=== PATIENT | male | born 1955 | race Caucasian/White ===

== ENCOUNTER 2017-04-13 23:34 | Inpatient (IN) | payer MEDICAID, MEDICARE ==
[2017-04-13 23:37] VITALS: BMI 20.9
--- NOTE | 2017-04-13 23:59 | CT ---
EXAM: CT Head Without Intravenous Contrast CLINICAL HISTORY: 61 years old, male; Signs and symptoms; Altered mental status/memory loss; Confusion or disorientation; Additional info: Code stroke TECHNIQUE: Axial computed tomography images of the head/brain without intravenous contrast. All CT scans at this facility use one or more dose reduction techniques, viz.: automated exposure control; ma/kV adjustment per patient size (including targeted exams where dose is matched to indication; i.e. head); or iterative reconstruction technique. COMPARISON: No relevant prior studies available. FINDINGS: Brain: Moderate atrophy. No intracranial hemorrhage. No mass. Moderate encephalomalacia within RIGHT frontal region. Few scattered foci of decreased attenuation within periventricular/subcortical white matter. No definite edema. Pleural thickening along RIGHT frontal convexity. Ventricles: No hydrocephalus. Bones/joints: No acute fracture. Postsurgical changes of RIGHT calvarium. Soft tissues: Unremarkable. Sinuses: Scattered minimal mucosal thickening. Mastoid air cells: No mastoid effusion. Orbits: RIGHT phthisis bulbi. IMPRESSION: 1. Nonspecific white matter changes. Acute infarction may be CT occult within first 24 hours. If a focal deficit persists, consider followup CT or MRI for further evaluation. 2. Incidental/non-acute findings are described above.
--- NOTE | 2017-04-14 00:03 | ED PDOC ---
Arrival/HPI - General Chief Complaint: Weakness/Neurological Deficit Time Seen by Provider: 04/13/17 23:34 Historian: Patient, Family - History of Present Illness Narrative History of Present Illness (Text): 04/14/17 23:40 A 61 year old male, whose past medical history includes chest pain, is brought in by EMS. Patient was complaining of left-sided weakness about 1 hour ago, now symptom has resolved. Patient wants to be transferred to [facility] Patient has no other complaints at this time. PMD: Dr. Crenshaw Past Medical History - Provider Review Nursing Documentation Reviewed: Yes - Infectious Disease Hx of Infectious Diseases: None - Tetanus Immunization Tetanus Immunization: Unknown - Cardiac Hx Cardiac Disorders: Yes Hx Hypertension: Yes - Pulmonary Hx Respiratory Disorders: No - Neurological Hx Neurological Disorder: Yes Hx Seizures: Yes Other/Comment: Meningioma - HEENT Hx HEENT Disorder: Yes Other/Comment: RIGHT EYE RETINA PROBLEM - Renal Hx Renal Disorder: No - Endocrine/Metabolic Hx Endocrine Disorders: Yes Hx Diabetes Mellitus Type 2: Yes - Hematological/Oncological Hx Blood Disorders: No - Integumentary Hx Dermatological Disorder: No - Musculoskeletal/Rheumatological Hx Musculoskeletal Disorders: No - Gastrointestinal Hx Gastrointestinal Disorders: No - Genitourinary/Gynecological Hx Genitourinary Disorders: No - Psychiatric Hx Psychophysiologic Disorder: No Hx Substance Use: No - Surgical History Hx Tonsillectomy: Yes Other/Comment: Rt. eye surgery, Meningioma Tumor Removal - Anesthesia Hx Anesthesia: Yes Hx Anesthesia Reactions: No Hx Malignant Hyperthermia: No - Suicidal Assessment Feels Threatened In Home Enviroment: No Family/Social History - Physician Review Nursing Documentation Reviewed: Yes Family/Social History: No Known Family HX Smoking Status: Never Smoked Hx Alcohol Use: No Hx Substance Use: No Hx Substance Use Treatment: No Allergies/Home Meds Allergies/Adverse Reactions: Allergies No Known Allergies Allergy (Verified 07/18/14 18:34) Home Medications: Home Meds Medication Instructions Recorded Confirmed Atorvastatin [Lipitor] 10 mg PO DIN 04/14/17 04/14/17 Brinzolamide [Azopt 15 ml] 5 ml OD BID 04/14/17 04/14/17 Brinzolamide/Brimonidine Tart 8 ml OD TID 04/14/17 04/14/17 [Simbrinza 0.2%-1% 8 ml] Carvedilol [Coreg] 6.25 mg PO BID 04/14/17 04/14/17 Divalproex [Depakote] 500 mg PO DAILY 04/14/17 04/14/17 Ibuprofen [Motrin] 400 mg PO TID PRN 04/14/17 04/14/17 Insulin Aspart, Recombinant 10 unit SC AC 04/14/17 04/14/17 [Novolog] Levemir Flexpen 30 units SQ HS 04/14/17 04/14/17 Losartan [Cozaar] 100 mg PO DAILY 04/14/17 04/14/17 MetFORMIN [glucOPHAGE] 1,000 mg PO BID 04/14/17 04/14/17 Moxifloxacin HCl [Vigamox 3 ml] 1 drop OD QID 04/14/17 04/14/17 Oxcarbazepine [Trileptal] 150 mg PO BID 04/14/17 04/14/17 PrednisoLONE 1% [Prednisolone 1 drop OD QID 04/14/17 04/14/17 Acetate 5 Ml] SITagliptin [Januvia] 100 mg PO DAILY 04/14/17 04/14/17 Sertraline [Zoloft] 50 mg PO DAILY 04/14/17 04/14/17 Travoprost [Travatan Z 2.5 ml] 2.5 ml OU HS 04/14/17 04/14/17 Review of Systems - Review of Systems Constitutional: absent: Fevers, Night Sweats Respiratory: absent: SOB, Cough Cardiovascular: absent: Chest Pain Gastrointestinal: absent: Abdominal Pain, Diarrhea, Nausea, Vomiting Neurological: Focal Weakness (left-sided weakness that occurred 1 hour ago, has now resolved upon arrival.) Physical Exam Vital Signs Temp Pulse Pulse Resp BP Pulse Ox 04/14/17 18:00 89 04/14/17 16:00 97.8 F 80 20 105/56 L 95 04/14/17 14:00 91 H 04/14/17 13:21 99 F 91 H 91 H 18 128/79 04/14/17 08:00 99 F 91 H 18 128/77 95 04/14/17 06:28 88 16 128/82 95 04/14/17 05:50 90 18 128/82 95 04/14/17 04:53 91 H 20 140/89 96 04/14/17 03:50 94 H 12 147/97 H 97 04/14/17 02:05 98.7 F 87 18 129/70 99 04/14/17 01:00 97 H 20 130/84 98 04/14/17 00:44 100 H 20 149/91 H 99 - Systems Exam Head: Present: Atraumatic, Normocephalic Pupils: Present: PERRL Extroacular Muscles: Present: EOMI Conjunctiva: Present: Normal Mouth: Present: Moist Mucous Membranes Neck: Present: Normal Range of Motion Respiratory/Chest: Present: Clear to Auscultation, Good Air Exchange. No: Respiratory Distress, Accessory Muscle Use Cardiovascular: Present: Regular Rate and Rhythm, Normal S1, S2. No: Murmurs Abdomen: Present: Normal Bowel Sounds. No: Tenderness, Distention, Peritoneal Signs Back: Present: Normal Inspection Upper Extremity: Present: Normal Inspection. No: Cyanosis, Edema Lower Extremity: Present: Normal Inspection. No: Edema Neurological: Present: GCS=15, CN II-XII Intact, Speech Normal Skin: Present: Warm, Dry, Normal Color. No: Rashes Psychiatric: Present: Alert, Oriented x 3, Normal Insight, Normal Concentration Medical Decision Making ED Course and Treatment: 04/14/17 23:45 Impression: 61 year old male with left-sided weakness now resolved. No acute findings in physical exam. Plan: -- EKG -- Head CT -- Chest X-ray -- Labs -- Reassess and disposition Prior Visits: Notes and results from previous visits were reviewed. Patient was last seen here in the emergency department on 07/19/2014 for chest pain. Progress Notes: 04/13/2017 23:33 Code stroke called. 04/14/2017 00:00 Patient and family want patient to be transferred over to [facility] 04/14/2017 00:[address] FINDINGS: Brain: Moderate atrophy. No intracranial hemorrhage. No mass. Moderate encephalomalacia within RIGHT frontal region. Few scattered foci of decreased attenuation within periventricular/subcortical white matter. No definite edema. Pleural thickening along RIGHT frontal convexity. Ventricles: No hydrocephalus. Bones/joints: No acute fracture. Postsurgical changes of RIGHT calvarium. Sinuses: Scattered minimal mucosal thickening. Mastoid air cells: No mastoid effusion. OrbitsL RIGHT phthisis bulbi. IMPRESSION: 1. Nonspecific white matter changes. Acute infarction may be CT occult within first 24 hours. If a focal deficit persists, consider followup CT or MRI for further evaluation. 2. Incidental/non-acute findings are described above. Dictator: Ronal Harley EKG: Ordered, reviewed, and independently interpreted the EKG. Rate : 99 BPM Rhythm : NSR Interpretation : No ST-segment elevations or depressions, no T-wave inversions, normal intervals. Comparison : No previous EKG for comparison. case d/w [facility] under hopsitalist pediatric medical assistant notified dr caryl bonilla, case d/w dr zuniga not candidate for tpa 04/14/17 19:20 - Lab Interpretations Lab Results: 04/14/17 00:10 04/14/17 00:10 Lab Results 04/14/17 00:10: Blood Type AB POSITIVE, Antibody Screen Negative, BBK History Checked No verified bt 04/14/17 00:10: Hemoglobin A1c 9.7 H 04/14/17 00:10: Sodium 136, Potassium 4.9, Chloride 98, Carbon Dioxide 28, Anion Gap 15, BUN 24 H, Creatinine 0.9, Est GFR ( Amer) > 60, Est GFR ( Non-Af Amer) > 60, Random Glucose 255 H, Calcium 9.5, Total Bilirubin 0.4, AST 42, ALT 61 H, Alkaline Phosphatase 114, Troponin I < 0.01, Total Protein 7.0, Albumin 4.0, Globulin 3.0, Albumin/Globulin Ratio 1.3, Triglycerides 98, Cholesterol 124 L, LDL Cholesterol Direct 51, HDL Cholesterol 55 04/14/17 00:10: PT 11.4, INR 1.06, APTT 24.2 04/14/17 00:10: WBC 5.9, RBC 4.30, Hgb 12.5 L, Hct 36.3 L, MCV 84.4, MCH 29.1, MCHC 34.4, RDW 13.8, Plt Count 206, MPV 9.3, Gran % 71.0 H, Lymph % (Auto) 20.8 L, [place] % (Auto) 6.6 H, Eos % (Auto) 1.4 L, Baso % (Auto) 0.2, Gran # 4.17, Lymph # 1.2, [place] # 0.4, Eos # 0.1, Baso # 0.01 - RAD Interpretation Radiology Orders: 04/13/17 23:38 HEAD W/O (CODE STROKE) [CT] Stat CHEST ONE VIEW [RAD] Stat - Medication Orders Current Medication Orders: Divalproex Sodium (Depakote Dr(*Bid*)) 500 mg PO BID [facility] Last Admin: 04/14/17 17:22 Dose: 500 mg Behavioural Document 04/14/17 17:22 SML (Rec: 04/14/17 17:22 [email or web address]) Maintenance Maintenance Dose Yes Insulin Detemir (Levemir) 30 unit SC HS [facility] Insulin Human Lispro (Humalog Med) 0 units SC [facility] PRN Reason: Protocol Last Admin: 04/14/17 17:20 Dose: 5 units MAR Blood Glucose Document 04/14/17 17:20 [facility] (Rec: 04/14/17 17:21 [email or web address]) Blood Glucose Finger Stick Blood Glucose (70-120) 250 Subcutaneous Administrations Document 04/14/17 17:20 [facility] (Rec: 04/14/17 17:21 [place] [id number]) Injection Site MAR Injection Site Right Arm Charges for Administration # of Subcutaneous Administrations 1 Latanoprost (Xalatan Opht) 0 ml OU HS [facility] Losartan Potassium (Cozaar) 100 mg PO DAILY [facility] Last Admin: 04/14/17 10:21 Dose: 100 mg Non-Formulary Medication (Brinzolamide/Brimonidine Tart [Simbrinza 1%-0.2% Eye Drops]) 8 ml OD TID [facility] Last Admin: 04/14/17 17:23 Dose: Oxcarbazepine (Trileptal) 150 mg PO DAILY [facility] Last Admin: 04/14/17 10:22 Dose: 150 mg Behavioural Document 04/14/17 10:22 TNR (Rec: 04/14/17 10:22 TNR [id number]) Maintenance Maintenance Dose Yes Pantoprazole Sodium (Protonix Inj) 40 mg IVP DAILY [facility] Last Admin: 04/14/17 10:22 Dose: 40 mg IVP Administration Document 04/14/17 10:22 TNR (Rec: 04/14/17 10:22 TNR [id number]) Charges for Administration # of IVP Administrations 1 Prednisolone Acetate (Pred Forte 1% Opht Susp) 0 ml OD QID [facility] Last Admin: 04/14/17 17:22 Dose: 1 drop Discontinued Medications Pneumococcal Polyvalent Vaccine (Pneumovax 23 Vaccine) 0.5 ml IM .ONCE ONE Stop: 04/14/17 13:41 NIHSS Scale (Innis) - How Severe is the Stoke Baseline Level of Consciousness: 0=Alert LOC to Questions: 0=Both comments correct LOC to commands: 0=Obeys both correctly Best Gaze: 0=Normal Visual: 0=No visual loss Facial: 0=Normal Motor Arm - Left: 0=No drift Motor Arm - Right: 0=No drift Motor Leg - Left: 0=No drift Motor Leg - Right: 0=No drift Limb Ataxia: 0=Absent Sensory: 0=Normal Best Language: 0=No aphasia Dysarthia: 0=Normal articulation Extinction & Inattention (Neglect): 0=Normal, no object Score: 0 Risk Level: No Stroke Risk rTPA Inclusion/Exclusion - Refusal of Treatment Patient Refused Treatment: No - Inclusion Criteria for Altepase Patient is 18 years or Older: Yes The Clinical Diagnosis of Ischemic Stroke That is Causing a Potentially Disabling Neurological Deficit: No Time of Onset is Well Established to be Less Than 270 Minute Before Treatment Would Begin: Yes Risk/Benefit Discussed With Patient/Family Member Present: Yes - Exclusion Criteria for Altepase Uncontrolled Hypertension at Time of Treatment (Systolic BP above 185 or Diastolic BP above 110 mmHg): No History of: Intracranial hemorrhage Active Internal Bleeding: No Known Bleeding Diathesis Including but Not Limited to: Platelets Below 100,000/ mm,PTT Above 40 sec After Heparin Use, Current Use of Oral Anitcoagulant With INR Greater Than 1.7 or PT Greater Than 15 secs: No Evidence of an Intracranial Hemorrhage: No Evidence of Major Acute Infarct With Signs Greater Than 1/3 MCA Territory: No Suspicion of Subarachnoid Hemorrhage on Pretreatment Evaluation Even if CT Head Negative For Hemorrhage: No - Warning to TPA With Conditions Following Conditions Weighed Against Anticipated Benefit: Yes Condition: Stroke Serevity Too Mild, Rapid Improvement - Scribe Statement The provider has reviewed the documentation as recorded by the Lukas Morse Provider Scribe Attestation: All medical record entries made by the Scribe were at my direction and personally dictated by me. I have reviewed the chart and agree that the record accurately reflects my personal performance of the history, physical exam, medical decision making, and the department course for this patient. I have also personally directed, reviewed, and agree with the discharge instructions and disposition. Disposition/Present on Arrival - Present on Arrival Any Indicators Present on Arrival: No History of DVT/PE: No History of Uncontrolled Diabetes: Yes Urinary Catheter: No History of Decub. Ulcer: No History Surgical Site Infection Following: None - Disposition Have Diagnosis and Disposition been Completed?: Yes Diagnosis: Transient ischemic attack (TIA) Disposition: HOSPITALIZED Disposition Time: 00:30 Patient Problems: Current Active Problems Problem Status Onset Transient ischemic attack (TIA) Acute Condition: FAIR
[2017-04-14 00:20] LABS: BASO # 0.01 K/mm3 (0.0-2.0); BASO % 0.2 % (0.0-3.0); EOS # 0.1 (0.0-0.7); EOS % 1.4 % (1.5-5.0); GRAN # 4.17 (1.4-6.5); HEMATOCRIT 36.3 % (42.0-52.0); LYMPH # 1.2 (1.2-3.4); LYMPH % 20.8 % (22.0-35.0); MEAN CELL VOLUME 84.4 fl (80.0-105.0); MEAN CORPUSCULAR HEMOGLOBIN 29.1 pg (25.0-35.0); MEAN CORPUSCULAR HGB CONC 34.4 g/dl (31.0-37.0); MEAN PLATELET VOLUME 9.3 fl (7.0-11.0); MONO # 0.4 (0.1-0.6); MONO % 6.6 % (1.0-6.0); RED CELL DISTRIBUTION WIDTH 13.8 % (11.5-14.5); WHITE BLOOD COUNT 5.9 10^3/ul (4.5-11.0)
[2017-04-14 00:35] LABS: INR 1.06 (0.93-1.08); PARTIAL THROMBOPLASTIN TIME 24.2 Seconds (23.7-30.8)
[2017-04-14 00:36] LABS: ALB/GLOB RATIO 1.3 (1.1-1.8); ALKALINE PHOSPHATASE 114 U/L (38-126); ALT/SGPT 61 U/L (7-56); AST/SGOT 42 U/L (17-59); BILIRUBIN,TOTAL 0.4 mg/dL (0.2-1.3); BLOOD UREA NITROGEN 24 mg/dL (7-21); CALCIUM 9.5 mg/dL (8.4-10.5); CARBON DIOXIDE 28 mmol/L (21-33); CHLORIDE 98 mmol/L (98-107); CHOLESTEROL 124 mg/dL (130-200); GFR AFRICAN-AMERICAN > 60; GLUCOSE,RANDOM 255 mg/dL (70-110); POTASSIUM 4.9 mmol/L (3.6-5.0); SODIUM 136 mmol/L (132-148)
[2017-04-14 00:48] LABS: TROPONIN I < 0.01 ng/mL
--- NOTE | 2017-04-14 02:24 | CP.PCM.HP ---
<CLAUDETTE BUCK - Last Filed: 04/14/17 02:16> History of Present Illness - History of Present Illness History of Present Illness: CC: Stroke Pt is a 61 yo male with PMH HTN, HLD, DM2, and meningioma presents with c/o possible stroke. Pt states that around 7:30 pm this evening patient was at home when he began to feel weak and numb in his left arm. Pt denies any prior history of focal weaknesses or any stroke like symptoms. At the time of the event, pt denied LOC, dizziness, fatigue, HEARD, leg weakness/numbness, or facial droop. Pt was initially take to [facility] by his to be evaluated. After workup, pt was discharged home. However, the patient's subsequently brought him to [facility] after discharge from [facility]. At the time of examination, pt states that he still had left arm weakness and some numbness on the back of his hand. Pt states that his vision is poor overall. Pt denied CP, SOB, n/v/d, chills, fever , abdominal pain, HEARD, dizziness, fatigue, constipation, or dysuria. PMD: [place] PMH: HTN, HLD, DM2, meningioma Surg: Craniotomy (2009) FHx: COPD All: NKDA SH: Denied EtOH, tobacco, or illicit drug use; lives at home with Medications: reviewed as per MAR Present on Admission - Present on Admission Any Indicators Present on Admission: No Review of Systems - Review of Systems Review of Systems: 12 point ROS negative other than what is stated in HPI Past Patient History - Infectious Disease Hx of Infectious Diseases: None - Tetanus Immunizations Tetanus Immunization: Unknown - Past Medical History & Family History Past Medical History?: Yes - Past Social History Smoking Status: Never Smoked - CARDIAC Hx Cardiac Disorders: Yes Hx Hypertension: Yes - PULMONARY Hx Respiratory Disorders: No - NEUROLOGICAL Hx Neurological Disorder: Yes Hx Seizures: Yes Other/Comment: Meningioma - HEENT Hx HEENT Problems: Yes Other/Comment: RIGHT EYE RETINA PROBLEM - RENAL Hx Chronic Kidney Disease: No - ENDOCRINE/METABOLIC Hx Endocrine Disorders: Yes Hx Diabetes Mellitus Type 2: Yes - HEMATOLOGICAL/ONCOLOGICAL Hx Blood Disorders: No - INTEGUMENTARY Hx Dermatological Problems: No - MUSCULOSKELETAL/RHEUMATOLOGICAL Hx Musculoskeletal Disorders: No - GASTROINTESTINAL Hx Gastrointestinal Disorders: No - GENITOURINARY/GYNECOLOGICAL Hx Genitourinary Disorders: No - PSYCHIATRIC Hx Psychophysiologic Disorder: No Hx Substance Use: No - SURGICAL HISTORY Hx Tonsillectomy: Yes Other/Comment: Rt. eye surgery, Meningioma Tumor Removal - ANESTHESIA Hx Anesthesia: Yes Hx Anesthesia Reactions: No Hx Malignant Hyperthermia: No Meds Allergies/Adverse Reactions: Allergies Allergy/AdvReac Type Severity Reaction Status Date / Time No Known Allergies Allergy Verified 07/18/14 18:34 Physical Exam - Constitutional Appears: No Acute Distress - Head Exam Head Exam: ATRAUMATIC, NORMOCEPHALIC Additional comments: scar on right frontal region consistent with craniotomy - Eye Exam Eye Exam: absent: EOMI, PERRL Additional comments: No vision from right eye. Poor visual field testing with left eye. - ENT Exam ENT Exam: Mucous Membranes Moist - Neck Exam Neck exam: Positive for: Full Rom. Negative for: Lymphadenopathy, Tenderness, Thyromegaly - Respiratory Exam Respiratory Exam: Clear to Auscultation Bilateral. absent: Accessory Muscle Use , Rales, Rhonchi, Wheezes, Respiratory Distress - Cardiovascular Exam Cardiovascular Exam: RRR, +S1, +S2. absent: Gallop, Rubs, Systolic Murmur - GI/Abdominal Exam GI & Abdominal Exam: Soft. absent: Distended, Firm, Guarding, Organomegaly, Rebound, Tenderness - Extremities Exam Extremities exam: Positive for: normal inspection - Neurological Exam Neurological exam: Alert, Oriented x3 Additional comments: Poor proprioception per [id number] test, positive dysdiadochokinesia, decreased sensation to dorsal region of left hand, trouble tracer strength 4/5 on R, 2/5 on L - Psychiatric Exam Psychiatric exam: Normal Affect, Normal Mood - Skin Skin Exam: Dry, Intact, Normal Color, Warm Results - Vital Signs Recent Vital Signs: Last Vital Signs Temp 98.7 F 04/14/17 02:05 Pulse 100 H 04/14/17 00:44 Resp 20 04/14/17 00:44 BP 149/91 H 04/14/17 00:44 Pulse Ox 99 04/14/17 00:44 - Labs Result Diagrams: 04/14/17 00:10 04/14/17 00:10 Labs: Laboratory Results - last 24 hr 04/14/17 01:30 Blood Type Confirm AB POSITIVE Assessment & Plan - Assessment and Plan (Free Text) Assessment: 61 yo male with PMHx of HTN, HLD, DM, and meningioma will be admitted for evaluation and treatment for possible stroke. Plan: 1. Possible Stroke - As pt was d/c from [facility] prior to arrival at [facility], difficult to determine if focal deficits are an acute event or baseline for pt - CT showed nonspecific white matter changes. Acute infarction may be CT occult within first 24 hours. If a focal deficit persists, consider followup CT or MRI for further evaluation - EKG NSR - Neuro Consulted - Lipid panel WNL - F/u Brain MRI, AM Labs, A1C - Seizure precautions - Neurochecks - Swallow eval/treat 2. Hypertension - Cont home med: Losartan 3. Diabetes Mellitus Type 2 - Blood glucose 255 - Levemir 30 units SC HS - ISS - Accuchecks - Carb consistent diet 4. Hyperlipidemia - Lipid panel WNL 5. H/O Meningioma - Cont home meds: Depakote and Oxcarbazepine - Seizure precautions 6. H/O Glaucoma - Cont home meds: Simbrinza, Latanoprost, prednisolone OD GI/DVT PPx - Protonix - SCDs Pt discussed in detail with Dr. Urbina. Loco Buck, PGY1 <Alice Urbina - Last Filed: 04/16/17 01:05> Results - Vital Signs Recent Vital Signs: Last Vital Signs Temp 98.7 F 04/14/17 02:05 Pulse 88 04/14/17 06:28 Resp 16 04/14/17 06:28 BP 128/82 04/14/17 06:28 Pulse Ox 95 04/14/17 06:28 - Labs Result Diagrams: 04/15/17 08:10 04/15/17 08:10 Labs: Laboratory Results - last 24 hr 04/14/17 04/14/17 01:30 06:58 WBC 5.2 RBC 4.05 Hgb 11.6 L Hct 34.0 L MCV 84.0 MCH 28.6 MCHC 34.1 RDW 13.8 Plt Count 204 MPV 9.6 Blood Type Confirm AB POSITIVE
[2017-04-14 07:09] LABS: MEAN CORPUSCULAR HEMOGLOBIN 28.6 pg (25.0-35.0); MEAN CORPUSCULAR HGB CONC 34.1 g/dl (31.0-37.0); MEAN PLATELET VOLUME 9.6 fl (7.0-11.0); RED CELL DISTRIBUTION WIDTH 13.8 % (11.5-14.5); WHITE BLOOD COUNT 5.2 10^3/ul (4.5-11.0)
[2017-04-14] MEDS: Insulin Lispro (humaLOG) MEDIUM Coverage SC SCH ×4 (09:06→21:46)
--- NOTE | 2017-04-14 10:13 | CARD ---
APPROVED REPORT EKG Measurement Heart [id number] <Conclusion> Normal sinus rhythm Normal ECG
--- NOTE | 2017-04-14 10:15 | RAD ---
PROCEDURE: CHEST RADIOGRAPH, 1 VIEW HISTORY: cva COMPARISON: 02/08/2014 FINDINGS: LUNGS: Clear. PLEURA: No pneumothorax or pleural fluid seen. CARDIOVASCULAR: Normal. OSSEOUS STRUCTURES: Thoracic spondylosis. Bilateral shoulder arthrosis VISUALIZED UPPER ABDOMEN: Normal. OTHER FINDINGS: None. IMPRESSION: No active cardiopulmonary pathology appreciated. Arthrosis
[2017-04-14] MEDS: PrednisoLONE 1% Opht Susp(5 ml) OD SCH ×4 (10:22→21:48)
[2017-04-14] MEDS: Divalproex 500 mg DR(BID formulation) PO SCH ×2 (10:22→17:22)
[2017-04-14] MEDS: BRIMONIDINE TART OD SCH ×3 (10:24→17:23)
[2017-04-14] MEDS: BRINZOLAMIDE OD SCH ×3 (10:24→17:23)
[2017-04-14] MEDS: [UNRECOGNIZED DRUG - OTHER] OD SCH ×3 (10:24→17:23)
[2017-04-14] MEDS ORDERED: Pneumococcal 23-Valent Vaccine IM ONE (13:40)
--- NOTE | 2017-04-14 13:47 | MRI ---
PROCEDURE: MRI BRAIN WITHOUT CONTRAST HISTORY: stroke COMPARISON: None. TECHNIQUE: Multiplanar, multisequence MR images of the brain were obtained without intravenous contrast enhancement. FINDINGS: HEMORRHAGE: None DWI: No evidence of an acute or early subacute infarction. BRAIN PARENCHYMA: No mass effect or edema. There is cystic and non cystic encephalomalacia in the right frontal lobe. There is some atrophy with dilatation of the right frontal horn VENTRICLES: Unremarkable. No hydrocephalus. CRANIUM: Unremarkable. ORBITS: Collapsed and atrophic right globe PARANASAL SINUSES/MASTOIDS: Clear VASCULAR SYSTEM: Skull base flow voids intact. OTHER FINDINGS: None. IMPRESSION: Right frontal encephalomalacia and atrophy. No acute intracranial findings
--- NOTE | 2017-04-14 14:06 | CP.PCM.CON ---
<Sravanthi Esquivel - Last Filed: 04/14/17 13:59> History of Present Illness - History of Present Illness History of Present Illness: Neurology Consult Note for Lillian Herring PGY2 Reason for consult: L arm numbness This is a 61Y M with PMH HTN, HLD, DM, seizures and meningioma s/p crainiotomy who complained of L arm numbness/tingling. Patient was recently seen at [facility] last weekend for similar symptoms and was d/c home without any changes in medications. Patient reports that he has numbness/tingling on his L forearm only. He denies neck pain, trauma, loss of consciousness, slurred speech, facial droop, dizziness, vision changes, CP, SOB, fever or chills. Patient reports he is on seizure medication, but has not had a seizure for several years. Patient also states he does lean on his L arm a lot when he is resting. PMH: HTN, DM, HLD, meningioma, R eye blindness, seizures PSH: Crainiotomy Home meds: As per MAR All: NKDA SH: Denies EtOH, drug or tobacco use. Lives with daughter/family Review of Systems - Review of Systems All systems: reviewed and no additional remarkable complaints except Review of Systems: + L arm numbness Past Patient History - Infectious Disease Hx of Infectious Diseases: None - Tetanus Immunizations Tetanus Immunization: Unknown - Past Medical History & Family History Past Medical History?: Yes - Past Social History Smoking Status: Never Smoked Alcohol: None Drugs: Denies Home Situation {Lives}: With Family - CARDIAC Hx Cardiac Disorders: Yes Hx Hypercholesterolemia: Yes Hx Hypertension: Yes - PULMONARY Hx Respiratory Disorders: No - NEUROLOGICAL Hx Neurological Disorder: Yes HX Cerebrovascular Accident: Yes (2010, slurrred speech/extremity weakness) Hx Seizures: Yes (related to meningioma) Other/Comment: r eye sx meningioma tumor removed - HEENT Hx HEENT Problems: Yes Hx Blind: Yes (r eye as per pt) Other/Comment: RIGHT EYE RETINA PROBLEM - RENAL Hx Chronic Kidney Disease: No - ENDOCRINE/METABOLIC Hx Diabetes Mellitus Type 2: Yes - HEMATOLOGICAL/ONCOLOGICAL Hx Blood Disorders: No - INTEGUMENTARY Other/Comment: ble dry skin - MUSCULOSKELETAL/RHEUMATOLOGICAL Hx Falls: Yes (past) - GASTROINTESTINAL Hx Gastrointestinal Disorders: No - GENITOURINARY/GYNECOLOGICAL Hx Genitourinary Disorders: No - PSYCHIATRIC Hx Substance Use: No - SURGICAL HISTORY Other/Comment: Rt. eye surgery, Meningioma Tumor Removal - ANESTHESIA Hx Anesthesia: Yes Hx Anesthesia Reactions: No Hx Malignant Hyperthermia: No Meds Allergies/Adverse Reactions: Allergies Allergy/AdvReac Type Severity Reaction Status Date / Time No Known Allergies Allergy Verified 07/18/14 18:34 - Medications Medications: Current Medications Divalproex Sodium (Depakote Dr(*Bid*)) 500 mg PO BID [facility] Last Admin: 04/14/17 10:22 Dose: 500 mg Insulin Detemir (Levemir) 30 unit SC HS [facility] Insulin Human Lispro (Humalog Med) 0 units SC ACHS [facility] PRN Reason: Protocol Last Admin: 04/14/17 12:38 Dose: 1 units Latanoprost (Xalatan Opht) 0 ml OU HS [facility] Losartan Potassium (Cozaar) 100 mg PO DAILY [facility] Last Admin: 04/14/17 10:21 Dose: 100 mg Non-Formulary Medication (Brinzolamide/Brimonidine Tart [Simbrinza 1%-0.2% Eye Drops]) 8 ml OD TID [facility] Last Admin: 04/14/17 10:24 Dose: Not Given Oxcarbazepine (Trileptal) 150 mg PO DAILY [facility] Last Admin: 04/14/17 10:22 Dose: 150 mg Pantoprazole Sodium (Protonix Inj) 40 mg IVP DAILY [facility] Last Admin: 04/14/17 10:22 Dose: 40 mg Prednisolone Acetate (Pred Forte 1% Opht Susp) 0 ml OD QID [facility] Last Admin: 04/14/17 10:22 Dose: 1 drop Physical Exam - Constitutional Appears: No Acute Distress - Head Exam Head Exam: ATRAUMATIC, NORMAL INSPECTION, NORMOCEPHALIC - Eye Exam Eye Exam: PERRL (on L ) Pupil Exam: PERRL (on L ) Additional comments: R eye blindness - ENT Exam ENT Exam: Mucous Membranes Moist - Respiratory Exam Respiratory Exam: Clear to Auscultation Bilateral, NORMAL BREATHING PATTERN. absent: Rales, Rhonchi, Wheezes - Cardiovascular Exam Cardiovascular Exam: REGULAR RHYTHM, +S1, +S2. absent: Gallop, Rubs, Systolic Murmur - Extremities Exam Extremities exam: Positive for: normal inspection. Negative for: calf tenderness, pedal edema - Neurological Exam Neurological exam: Alert, CN II-XII Intact, Oriented x3 - Expanded Neurological Exam Expanded Patient oriented to: person, place, time Cranial nerves: EOM's Intact: Normal, Facial Palsey w/Forehead Movement: Normal , Facial Palsey w/o Forehead Movement: Normal, Facial Sensation: Normal, Tongue Deviation: Normal Upper motor neuron: Pronator Drift: Abnormal Left (mild on L ) Sensory exam: Lower Extremity 2 Point Discrimination: Normal, Lower Extremity Light Touch: Normal, Upper Extremity 2 Point Discrimination: Normal, Upper Extremity Light Touch: Normal Neuro motor strength exam: Left Upper Extremity: 5, Right Upper Extremity: 5, Left Lower Extremity: 5, Right Lower Extremity: 5 Coma Scale Eye Opening: SPONTANEOUS Coma Scale Motor Response: OBEYS COMMANDS Coma Scale Verbal: Oriented Coma Scale Total: 15 Results - Vital Signs Recent Vital Signs: Last Vital Signs Temp 99 F 04/14/17 13:21 Pulse 91 H 04/14/17 13:21 Resp 18 04/14/17 13:21 BP 128/79 04/14/17 13:21 Pulse Ox 95 04/14/17 08:00 - Labs Result Diagrams: 04/14/17 06:58 04/14/17 00:10 Labs: Laboratory Results - last 24 hr 04/14/17 04/14/17 04/14/17 01:30 06:58 08:16 WBC 5.2 RBC 4.05 Hgb 11.6 L Hct 34.0 L MCV 84.0 MCH 28.6 MCHC 34.1 RDW 13.8 Plt Count 204 MPV 9.6 POC Glucose (mg/dL) 147 H Blood Type Confirm AB POSITIVE 04/14/17 11:58 WBC RBC Hgb Hct MCV MCH MCHC RDW Plt Count MPV POC Glucose (mg/dL) 198 H Blood Type Confirm Assessment & Plan - Assessment and Plan (Free Text) Assessment: This is a 61Y M with PMH HTN, HLD, DM, seizures and meningioma s/p crainiotomy who complained of L arm numbness/tingling. MRI brain showed R chronic encephalomalacia without any acute abnormalities. L arm numbness can be secondary to pinched nerve from leaning on arm as well as diabetic neuropathy from uncontrolled DM. Plan: - HgbA1c: 9.7 - Recommend better glucose control and diabetic education - Physical therapy - Patient can follow up with Dr. Anguiano as outpatient for EMG study - Continue Depakote and Trileptal No further neurological work up needed at this time. Thank you for this consultation. Will sign off. Please re-consult if needed. Case seen, discussed and reviewed with Dr. Silvio Esquivel PGY2 - Date & Time Date: 04/14/17 Time: 14:11 <Triston Anguiano - Last Filed: 04/14/17 16:20> Results - Vital Signs Recent Vital Signs: Last Vital Signs Temp 99 F 04/14/17 13:21 Pulse 91 H 04/14/17 13:21 Resp 18 04/14/17 13:21 BP 128/79 04/14/17 13:21 Pulse Ox 95 04/14/17 08:00 - Labs Result Diagrams: 04/14/17 06:58 04/14/17 00:10 Labs: Laboratory Results - last 24 hr 04/14/17 04/14/17 04/14/17 01:30 06:58 08:16 WBC 5.2 RBC 4.05 Hgb 11.6 L Hct 34.0 L MCV 84.0 MCH 28.6 MCHC 34.1 RDW 13.8 Plt Count 204 MPV 9.6 POC Glucose (mg/dL) 147 H Blood Type Confirm AB POSITIVE 04/14/17 11:58 WBC RBC Hgb Hct MCV MCH MCHC RDW Plt Count MPV POC Glucose (mg/dL) 198 H Blood Type Confirm Attending/Attestation - Attestation I have personally seen and examined this patient.: Yes I have fully participated in the care of the patient.: Yes I have reviewed all pertinent clinical information: Yes
[2017-04-14 16:30] LABS: ALB/GLOB RATIO 1.4 (1.1-1.8); ALKALINE PHOSPHATASE 104 U/L (38-126); ALT/SGPT 47 U/L (7-56); AST/SGOT 33 U/L (17-59); BILIRUBIN,TOTAL 0.4 mg/dL (0.2-1.3); BLOOD UREA NITROGEN 20 mg/dL (7-21); CALCIUM 9.1 mg/dL (8.4-10.5); CARBON DIOXIDE 27 mmol/L (21-33); CHLORIDE 98 mmol/L (98-107); GFR AFRICAN-AMERICAN > 60; GLUCOSE,RANDOM 250 mg/dL (70-110); PHOSPHOROUS 4.3 mg/dL (2.5-4.5); POTASSIUM 4.7 mmol/L (3.6-5.0); SODIUM 136 mmol/L (132-148); TOTAL PROTEIN 6.4 g/dL (5.8-8.3)
--- NOTE | 2017-04-14 16:34 | US ---
PROCEDURE: Bilateral carotid artery duplex ultrasound HISTORY: Carotid stenosis TIA PHYSICIAN(S): Benjamín Sharma MD. TECHNIQUE: Duplex sonography and color-flow Doppler were used to evaluate the carotid bifurcations and limited segments of the vertebral arteries bilaterally. FINDINGS: There is mild smooth hypoechoic plaque noted at the carotid bifurcations bilaterally. The peak systolic velocity in the proximal right internal carotid artery is 84 cm/sec. This corresponds to a 20 to 39% proximal right ICA stenosis. Normal systolic velocities are noted in the proximal right external carotid artery. There is antegrade flow in the right vertebral artery. The peak systolic velocity in the proximal left internal carotid artery is 92 cm/sec. This corresponds to a 20 to 39% proximal left ICA stenosis. Normal systolic velocities are noted in the proximal left external carotid artery. There is antegrade flow in the left vertebral artery. IMPRESSION: 1. Bilateral 20-39% proximal ICA stenoses. 2. Antegrade flow in both vertebral arteries.
[2017-04-14] MEDS: Insulin Detemir 100 units/ml Vial (Levemir) SC SCH (21:46)
[2017-04-14] MEDS: Latanoprost 2.5 ml Opht Soln OU SCH (21:50)
[2017-04-15] MEDS: Insulin Lispro (humaLOG) MEDIUM Coverage SC SCH ×4 (08:13→22:46)
[2017-04-15 08:25] LABS: BLOOD UREA NITROGEN 26 mg/dL (7-21); CALCIUM 9.4 mg/dL (8.4-10.5); CARBON DIOXIDE 28 mmol/L (21-33); CHLORIDE 102 mmol/L (95-110); GFR AFRICAN-AMERICAN > 60; GLUCOSE,RANDOM 164 mg/dL (70-110); POTASSIUM 4.6 mmol/L (3.6-5.0); SODIUM 139 mmol/L (132-148)
[2017-04-15 08:26] LABS: HEMATOCRIT 35.3 % (42.0-52.0); MEAN CELL VOLUME 84.9 fl (80.0-105.0); MEAN CORPUSCULAR HEMOGLOBIN 28.4 pg (25.0-35.0); MEAN CORPUSCULAR HGB CONC 33.4 g/dl (31.0-37.0); MEAN PLATELET VOLUME 9.9 fl (7.0-11.0); RED CELL DISTRIBUTION WIDTH 13.7 % (11.5-14.5); WHITE BLOOD COUNT 4.8 10^3/ul (4.5-11.0)
[2017-04-15] MEDS: Divalproex 500 mg DR(BID formulation) PO SCH ×2 (09:54→17:54)
[2017-04-15] MEDS: PrednisoLONE 1% Opht Susp(5 ml) OD SCH ×4 (09:54→22:25)
[2017-04-15] MEDS: BRINZOLAMIDE OD SCH ×3 (10:01→17:54)
[2017-04-15] MEDS: BRIMONIDINE TART OD SCH ×3 (10:01→17:54)
[2017-04-15] MEDS: [UNRECOGNIZED DRUG - OTHER] OD SCH ×3 (10:01→17:54)
--- NOTE | 2017-04-15 13:38 | CP.PCM.PN ---
<Vince Michaud - Last Filed: 04/15/17 13:34> Subjective - Date & Time of Evaluation Date of Evaluation: 04/15/17 Time of Evaluation: 13:34 - Subjective Subjective: Pt seen and examined at bedside. No acute overnight events. Pt reports no symptoms today or complaints. Denies CP, SOB, N/V/D, fever, chills. Objective - Vital Signs/Intake and Output Vital Signs (last 24 hours): Temp Pulse Resp BP Pulse Ox 98.3 F 79 20 117/76 98 04/15/17 08:00 04/15/17 08:00 04/15/17 08:00 04/15/17 08:00 04/15/17 08:00 Intake and Output: 04/15/17 04/15/17 06:59 18:59 Intake Total 540 100 Balance 540 100 - Medications Medications: Current Medications Divalproex Sodium (Depakote Dr(*Bid*)) 500 mg PO BID [facility] Last Admin: 04/15/17 09:54 Dose: 500 mg Insulin Detemir (Levemir) 30 unit SC HS [facility] Last Admin: 04/14/17 21:46 Dose: 30 unit Insulin Human Lispro (Humalog Med) 0 units SC [facility] PRN Reason: Protocol Last Admin: 04/15/17 11:28 Dose: 1 units Latanoprost (Xalatan Opht) 0 ml OU HS [facility] Last Admin: 04/14/17 21:50 Dose: 1 ml Losartan Potassium (Cozaar) 100 mg PO DAILY [facility] Last Admin: 04/15/17 09:54 Dose: 100 mg Non-Formulary Medication (Brinzolamide/Brimonidine Tart [Simbrinza 1%-0.2% Eye Drops]) 8 ml OD TID [facility] Last Admin: 04/15/17 10:01 Dose: Not Given Oxcarbazepine (Trileptal) 150 mg PO DAILY [facility] Last Admin: 04/15/17 10:03 Dose: 150 mg Pantoprazole Sodium (Protonix Inj) 40 mg IVP DAILY [facility] Last Admin: 04/15/17 09:53 Dose: 40 mg Prednisolone Acetate (Pred Forte 1% Opht Susp) 0 ml OD QID [facility] Last Admin: 04/15/17 09:54 Dose: 1 drop - Labs Labs: 04/15/17 08:10 04/15/17 08:10 PT 11.4 Seconds (9.9-11.8) 04/14/17 00:10 INR 1.06 (0.93-1.08) 04/14/17 00:10 APTT 24.2 Seconds (23.7-30.8) 04/14/17 00:10 - Constitutional Appears: Non-toxic, No Acute Distress - Head Exam Head Exam: ATRAUMATIC, NORMAL INSPECTION, NORMOCEPHALIC - ENT Exam ENT Exam: Mucous Membranes Moist - Respiratory Exam Respiratory Exam: Clear to Ausculation Bilateral, NORMAL BREATHING PATTERN. absent: Rales, Rhonchi, Wheezes - Cardiovascular Exam Cardiovascular Exam: RRR, +S1, +S2 - GI/Abdominal Exam GI & Abdominal Exam: Soft, Normal Bowel Sounds. absent: Tenderness - Extremities Exam Extremities Exam: Normal Inspection. absent: Calf Tenderness, Pedal Edema - Neurological Exam Neurological Exam: Alert, Awake, Oriented x3 - Psychiatric Exam Psychiatric exam: Normal Affect, Normal Mood - Skin Skin Exam: Intact, Normal Color, Warm Assessment and Plan - Assessment and Plan (Free Text) Plan: 61 yo male with PMHx of HTN, HLD, DM, and meningioma presents with TIA. Head CT and Brain MRI negative for any acute findings. Pt will require subacute rehab placement. Will await placement at this time. 1. TIA - Head CT and Brain MRI negative - Continue ASA - Neurology recommends strict DM and HTN control - Lipid panel within normal limits 2. Hypertension - Cont home med: Losartan 3. Diabetes Mellitus Type 2 - Levemir 30 units SC HS - ISS - Accuchecks - Carb consistent diet 4. Hyperlipidemia - Lipid panel WNL 5. H/O Meningioma - Cont home meds: Depakote and Oxcarbazepine - Seizure precautions 6. H/O Glaucoma - Cont home meds: Simbrinza, Latanoprost, prednisolone OD 7. GI/DVT PPx - Protonix - SCDs Jaswant, PGY-2 <Dee Rai - Last Filed: 04/15/17 14:50> Objective - Vital Signs/Intake and Output Vital Signs (last 24 hours): Temp Pulse Resp BP Pulse Ox 98.3 F 87 20 117/76 98 04/15/17 08:00 04/15/17 10:00 04/15/17 08:00 04/15/17 08:00 04/15/17 08:00 Intake and Output: 04/15/17 04/15/17 06:59 18:59 Intake Total 540 580 Balance 540 580 - Medications Medications: Current Medications Aspirin (Aspirin Chewable) 81 mg PO DAILY [facility] Last Admin: 04/15/17 14:30 Dose: 81 mg Divalproex Sodium (Depakote Dr(*Bid*)) 500 mg PO BID [facility] Last Admin: 04/15/17 09:54 Dose: 500 mg Insulin Detemir (Levemir) 30 unit SC HS [facility] Last Admin: 04/14/17 21:46 Dose: 30 unit Insulin Human Lispro (Humalog Med) 0 units SC [facility] PRN Reason: Protocol Last Admin: 04/15/17 11:28 Dose: 1 units Latanoprost (Xalatan Opht) 0 ml OU HS [facility] Last Admin: 04/14/17 21:50 Dose: 1 ml Losartan Potassium (Cozaar) 100 mg PO DAILY [facility] Last Admin: 04/15/17 09:54 Dose: 100 mg Non-Formulary Medication (Brinzolamide/Brimonidine Tart [Simbrinza 1%-0.2% Eye Drops]) 8 ml OD TID [facility] Last Admin: 04/15/17 10:01 Dose: Not Given Oxcarbazepine (Trileptal) 150 mg PO DAILY [facility] Last Admin: 04/15/17 10:03 Dose: 150 mg Pantoprazole Sodium (Protonix Inj) 40 mg IVP DAILY [facility] Last Admin: 04/15/17 09:53 Dose: 40 mg Prednisolone Acetate (Pred Forte 1% Opht Susp) 0 ml OD QID [facility] Last Admin: 04/15/17 14:23 Dose: 1 drop - Labs Labs: 04/15/17 08:10 04/15/17 08:10 PT 11.4 Seconds (9.9-11.8) 04/14/17 00:10 INR 1.06 (0.93-1.08) 04/14/17 00:10 APTT 24.2 Seconds (23.7-30.8) 04/14/17 00:10 Attending/Attestation - Attestation I have personally seen and examined this patient.: Yes I have fully participated in the care of the patient.: Yes I have reviewed all pertinent clinical information, including history, physical exam and plan: Yes Notes (Text): 04/15/17 14:47 61 year old male with past medical history of hypertension, dyslipidemia, diabetes and meningioma s/p resection who presented with left sided weakness. CT head and MRI brain were negative for acute findings. Neurology evaluation was appreciated. Continue with aspirin. LDL was 51. PT evaluation was appreciated as well who is recommending subacute rehab. Continue with home medications for hypertension and diabetes. Dee Rai MD Hospitalist.
[2017-04-15] MEDS: Latanoprost 2.5 ml Opht Soln OU SCH (22:24)
[2017-04-15] MEDS: Insulin Detemir 100 units/ml Vial (Levemir) SC SCH (23:00)
[2017-04-16 07:59] VITALS: RESP 20
[2017-04-16] MEDS: Insulin Lispro (humaLOG) MEDIUM Coverage SC SCH ×4 (08:47→22:00)
[2017-04-16] MEDS: Divalproex 500 mg DR(BID formulation) PO SCH ×2 (10:18→17:11)
[2017-04-16] MEDS: BRIMONIDINE TART OD SCH ×3 (10:19→19:02)
[2017-04-16] MEDS: [UNRECOGNIZED DRUG - OTHER] OD SCH ×3 (10:19→19:02)
[2017-04-16] MEDS: BRINZOLAMIDE OD SCH ×3 (10:19→19:02)
[2017-04-16] MEDS: PrednisoLONE 1% Opht Susp(5 ml) OD SCH ×4 (10:19→21:58)
--- NOTE | 2017-04-16 12:30 | CP.PCM.PN ---
<Vince Michaud - Last Filed: 04/16/17 12:27> Subjective - Date & Time of Evaluation Date of Evaluation: 04/16/17 Time of Evaluation: 12:27 - Subjective Subjective: Pt seen and examined at bedside. Pt with no acute events overnight. Denies any complaints at this time. Denies CP, SOB, N/V/D, fever, chills. Objective - Vital Signs/Intake and Output Vital Signs (last 24 hours): Temp Pulse Resp BP Pulse Ox 98.4 F 80 20 117/68 96 04/16/17 08:04 04/16/17 08:04 04/16/17 08:04 04/16/17 08:04 04/16/17 08:04 Intake and Output: 04/16/17 04/16/17 06:59 18:59 Intake Total 780 Balance 780 - Medications Medications: Current Medications Aspirin (Aspirin Chewable) 81 mg PO DAILY [facility] Last Admin: 04/16/17 10:18 Dose: 81 mg Divalproex Sodium (Depakote Dr(*Bid*)) 500 mg PO BID [facility] Last Admin: 04/16/17 10:18 Dose: 500 mg Insulin Detemir (Levemir) 30 unit SC HS [facility] Last Admin: 04/15/17 23:00 Dose: Not Given Insulin Human Lispro (Humalog Med) 0 units SC [facility] PRN Reason: Protocol Last Admin: 04/16/17 08:47 Dose: 3 units Latanoprost (Xalatan Opht) 0 ml OU HS [facility] Last Admin: 04/15/17 22:24 Dose: 2.5 ml Losartan Potassium (Cozaar) 100 mg PO DAILY [facility] Last Admin: 04/16/17 10:18 Dose: 100 mg Non-Formulary Medication (Brinzolamide/Brimonidine Tart [Simbrinza 1%-0.2% Eye Drops]) 8 ml OD TID [facility] Last Admin: 04/16/17 10:19 Dose: Not Given Oxcarbazepine (Trileptal) 150 mg PO DAILY [facility] Last Admin: 04/16/17 10:17 Dose: 150 mg Pantoprazole Sodium (Protonix Inj) 40 mg IVP DAILY [facility] Last Admin: 04/16/17 10:18 Dose: 40 mg Prednisolone Acetate (Pred Forte 1% Opht Susp) 0 ml OD QID [facility] Last Admin: 04/16/17 10:19 Dose: 1 drop - Labs Labs: PT 11.4 Seconds (9.9-11.8) 04/14/17 00:10 INR 1.06 (0.93-1.08) 04/14/17 00:10 APTT 24.2 Seconds (23.7-30.8) 04/14/17 00:10 - Constitutional Appears: Non-toxic, No Acute Distress - Head Exam Head Exam: ATRAUMATIC, NORMAL INSPECTION, NORMOCEPHALIC - ENT Exam ENT Exam: Mucous Membranes Moist - Respiratory Exam Respiratory Exam: Clear to Ausculation Bilateral, NORMAL BREATHING PATTERN. absent: Rales, Rhonchi, Wheezes - Cardiovascular Exam Cardiovascular Exam: RRR, +S1, +S2 - GI/Abdominal Exam GI & Abdominal Exam: Soft, Normal Bowel Sounds. absent: Tenderness - Extremities Exam Extremities Exam: Normal Inspection. absent: Calf Tenderness, Pedal Edema - Neurological Exam Neurological Exam: Alert, Awake, Oriented x3 Additional comments: Morning Nanny strength 3/5 on left hand Morning Nanny strength 5/5 on right hand - Psychiatric Exam Psychiatric exam: Normal Affect, Normal Mood - Skin Skin Exam: Intact, Normal Color, Warm Assessment and Plan - Assessment and Plan (Free Text) Plan: 61 yo male with PMH of HTN, HLD, DM, and meningioma presents with TIA. Head CT and Brain MRI negative for any acute findings. Pt will require subacute rehab placement. Will await placement at this time. 1. TIA - Head CT and Brain MRI negative - Carotid Doppler US with b/l 20-29% ICA stenoses - Continue ASA - Neurology recommends strict DM and HTN control - Lipid panel within normal limits 2. Hypertension - Continue Losartan 3. Diabetes Mellitus Type 2 - Levemir 30 units SC HS - ISS - Accuchecks - Carb consistent diet 4. Hyperlipidemia - Lipid panel WNL 5. H/O Meningioma - Continue Depakote and Oxcarbazepine - Seizure precautions 6. H/O Glaucoma - Continue Simbrinza, Latanoprost, prednisolone OD 7. GI/DVT PPx - Protonix - SCDs Jaswant, PGY-2 <Dee Rai - Last Filed: 04/16/17 12:47> Objective - Vital Signs/Intake and Output Vital Signs (last 24 hours): Temp Pulse Resp BP Pulse Ox 98.4 F 80 20 117/68 96 04/16/17 08:04 04/16/17 08:04 04/16/17 08:04 04/16/17 08:04 04/16/17 08:04 Intake and Output: 04/16/17 04/16/17 06:59 18:59 Intake Total 780 Balance 780 - Medications Medications: Current Medications Aspirin (Aspirin Chewable) 81 mg PO DAILY [facility] Last Admin: 04/16/17 10:18 Dose: 81 mg Divalproex Sodium (Depakote Dr(*Bid*)) 500 mg PO BID [facility] Last Admin: 04/16/17 10:18 Dose: 500 mg Insulin Detemir (Levemir) 30 unit SC HS [facility] Last Admin: 04/15/17 23:00 Dose: Not Given Insulin Human Lispro (Humalog Med) 0 units SC ACHS [facility] PRN Reason: Protocol Last Admin: 04/16/17 12:37 Dose: 5 units Latanoprost (Xalatan Opht) 0 ml OU HS [facility] Last Admin: 04/15/17 22:24 Dose: 2.5 ml Losartan Potassium (Cozaar) 100 mg PO DAILY [facility] Last Admin: 04/16/17 10:18 Dose: 100 mg Non-Formulary Medication (Brinzolamide/Brimonidine Tart [Simbrinza 1%-0.2% Eye Drops]) 8 ml OD TID [facility] Last Admin: 04/16/17 10:19 Dose: Not Given Oxcarbazepine (Trileptal) 150 mg PO DAILY [facility] Last Admin: 04/16/17 10:17 Dose: 150 mg Pantoprazole Sodium (Protonix Inj) 40 mg IVP DAILY [facility] Last Admin: 04/16/17 10:18 Dose: 40 mg Prednisolone Acetate (Pred Forte 1% Opht Susp) 0 ml OD QID [facility] Last Admin: 04/16/17 10:19 Dose: 1 drop - Labs Labs: PT 11.4 Seconds (9.9-11.8) 04/14/17 00:10 INR 1.06 (0.93-1.08) 04/14/17 00:10 APTT 24.2 Seconds (23.7-30.8) 04/14/17 00:10 Attending/Attestation - Attestation I have personally seen and examined this patient.: Yes I have fully participated in the care of the patient.: Yes I have reviewed all pertinent clinical information, including history, physical exam and plan: Yes Notes (Text): 04/16/17 12:46 61 year old male with past medical history of hypertension, dyslipidemia, diabetes and meningioma s/p resection who presented with left sided weakness. CT head and MRI brain were negative for acute findings. Neurology evaluation was appreciated. Continue with aspirin. LDL was 51. Continue with home medications for hypertension and diabetes. Continue with physical therapy who is currently recommending subacute rehab. Dee Rai MD Hospitalist.
[2017-04-16] MEDS: Insulin Detemir 100 units/ml Vial (Levemir) SC SCH (21:57)
[2017-04-16] MEDS: Latanoprost 2.5 ml Opht Soln OU SCH (21:57)
[2017-04-17 07:19] LABS: HEMATOCRIT 31.8 % (42.0-52.0); MEAN CELL VOLUME 84.4 fl (80.0-105.0); MEAN CORPUSCULAR HEMOGLOBIN 28.6 pg (25.0-35.0); MEAN PLATELET VOLUME 10.1 fl (7.0-11.0); RED CELL DISTRIBUTION WIDTH 13.7 % (11.5-14.5); WHITE BLOOD COUNT 4.5 10^3/ul (4.5-11.0)
[2017-04-17 07:54] LABS: ALB/GLOB RATIO 1.3 (1.1-1.8); ALKALINE PHOSPHATASE 88 U/L (38-126); ALT/SGPT 49 U/L (7-56); AST/SGOT 31 U/L (17-59); BILIRUBIN,TOTAL 0.3 mg/dL (0.2-1.3); BLOOD UREA NITROGEN 23 mg/dL (7-21); CARBON DIOXIDE 31 mmol/L (21-33); CHLORIDE 97 mmol/L (98-107); GFR AFRICAN-AMERICAN > 60; GLUCOSE,RANDOM 207 mg/dL (70-110); POTASSIUM 4.4 mmol/L (3.6-5.0); SODIUM 136 mmol/L (132-148); TOTAL PROTEIN 6.3 g/dL (5.8-8.3)
[2017-04-17] MEDS: Insulin Lispro (humaLOG) MEDIUM Coverage SC SCH ×3 (08:13→16:56)
--- NOTE | 2017-04-17 09:36 | CP.PCM.PN ---
<Edil Valdivia - Last Filed: 04/17/17 09:36> Subjective - Date & Time of Evaluation Date of Evaluation: 04/17/17 Time of Evaluation: 08:34 - Subjective Subjective: Patient seen and examined at bedside this morning. Per nursing no acute events occurred overnight. The patient reports some arm pain this morning. The patient denies any chest pain, shortness of breath, nausea, vomiting, constipation, diarrhea, changes in vision, sore throat, or any other complaints. Objective - Vital Signs/Intake and Output Vital Signs (last 24 hours): Temp Pulse Resp BP Pulse Ox 98.5 F 82 20 130/81 96 04/17/17 06:00 04/17/17 06:00 04/17/17 06:00 04/17/17 06:00 04/17/17 06:00 Intake and Output: 04/17/17 04/17/17 06:59 18:59 Intake Total 780 Balance 780 - Medications Medications: Current Medications Acetaminophen (Tylenol 325mg Tab) 650 mg PO Q6H PRN PRN Reason: Pain, moderate (4-7) Aspirin (Aspirin Chewable) 81 mg PO DAILY [facility] Last Admin: 04/16/17 10:18 Dose: 81 mg Divalproex Sodium (Depakote Dr(*Bid*)) 500 mg PO BID [facility] Last Admin: 04/16/17 17:11 Dose: 500 mg Insulin Detemir (Levemir) 30 unit SC HS [facility] Last Admin: 04/16/17 21:57 Dose: 30 unit Insulin Human Lispro (Humalog Med) 0 units SC [facility] PRN Reason: Protocol Last Admin: 04/17/17 08:13 Dose: 3 units Latanoprost (Xalatan Opht) 0 ml OU HS [facility] Last Admin: 04/16/17 21:57 Dose: 2.5 ml Losartan Potassium (Cozaar) 100 mg PO DAILY [facility] Last Admin: 04/16/17 10:18 Dose: 100 mg Non-Formulary Medication (Brinzolamide/Brimonidine Tart [Simbrinza 1%-0.2% Eye Drops]) 8 ml OD TID [facility] Last Admin: 04/16/17 19:02 Dose: Not Given Oxcarbazepine (Trileptal) 150 mg PO DAILY [facility] Last Admin: 04/16/17 10:17 Dose: 150 mg Pantoprazole Sodium (Protonix Inj) 40 mg IVP DAILY [facility] Last Admin: 04/16/17 10:18 Dose: 40 mg Prednisolone Acetate (Pred Forte 1% Opht Susp) 0 ml OD QID [facility] Last Admin: 04/16/17 21:58 Dose: 1 drop - Labs Labs: 04/17/17 06:30 04/17/17 06:30 PT 11.4 Seconds (9.9-11.8) 04/14/17 00:10 INR 1.06 (0.93-1.08) 04/14/17 00:10 APTT 24.2 Seconds (23.7-30.8) 04/14/17 00:10 - Head Exam Head Exam: ATRAUMATIC, NORMAL INSPECTION, NORMOCEPHALIC - Eye Exam Eye Exam: EOMI, Normal appearance, PERRL Pupil Exam: NORMAL ACCOMODATION, PERRL. absent: Miosis, Mydriatic - ENT Exam ENT Exam: Mucous Membranes Moist, Normal Exam. absent: Normal Oropharynx, TM's Normal Bilaterally - Neck Exam Neck Exam: Normal Inspection. absent: Lymphadenopathy, Thyromegaly - Respiratory Exam Respiratory Exam: Clear to Ausculation Bilateral, NORMAL BREATHING PATTERN. absent: Chest Wall Tenderness, Prolonged Expiratory Phase - Cardiovascular Exam Cardiovascular Exam: REGULAR RHYTHM, RRR, +S1, +S2. absent: Gallop, Rubs - GI/Abdominal Exam GI & Abdominal Exam: Soft, Normal Bowel Sounds. absent: Hyperactive Bowel Sounds - Extremities Exam Extremities Exam: Full ROM. absent: Joint Swelling, Pedal Edema, Tenderness - Back Exam Back Exam: NORMAL INSPECTION. absent: paraspinal tenderness - Neurological Exam Neurological Exam: Alert, Awake, CN II-XII Intact, Normal Gait, Oriented x3 - Psychiatric Exam Psychiatric exam: Normal Affect, Normal Mood - Skin Skin Exam: Dry, Intact. absent: Erythema, Rash Assessment and Plan - Assessment and Plan (Free Text) Assessment: 61 yo male with PMH of HTN, HLD, DM, and meningioma presents with TIA. Head CT and Brain MRI negative for any acute findings. Pt will require subacute rehab placement. Will await placement at this time. Plan: 1. TIA - Head CT and Brain MRI negative - Carotid Doppler US with b/l 20-29% ICA stenoses - Continue ASA - Neurology recommends strict DM and HTN control - Lipid panel within normal limits 2. Hypertension - Continue Losartan 3. Diabetes Mellitus Type 2 - Levemir 30 units SC HS - ISS - Accuchecks - Carb consistent diet 4. Hyperlipidemia - Lipid panel WNL 5. H/O Meningioma - Continue Depakote and Oxcarbazepine - Seizure precautions 6. H/O Glaucoma - Continue Simbrinza, Latanoprost, prednisolone OD 7. GI/DVT PPx - Protonix - SCDs <Dee Rai - Last Filed: 04/17/17 18:53> Objective - Vital Signs/Intake and Output Vital Signs (last 24 hours): Temp Pulse Resp BP Pulse Ox 98.1 F 75 20 108/67 97 04/17/17 17:09 04/17/17 17:09 04/17/17 17:09 04/17/17 17:09 04/17/17 17:09 Intake and Output: 04/17/17 04/17/17 06:59 18:59 Intake Total 780 Balance 780 - Medications Medications: Current Medications Acetaminophen (Tylenol 325mg Tab) 650 mg PO Q6H PRN PRN Reason: Pain, moderate (4-7) Last Admin: 04/17/17 10:08 Dose: 650 mg Aspirin (Aspirin Chewable) 81 mg PO DAILY [facility] Last Admin: 04/17/17 10:05 Dose: 81 mg Divalproex Sodium (Depakote Dr(*Bid*)) 500 mg PO BID [facility] Last Admin: 04/17/17 16:59 Dose: 500 mg Insulin Detemir (Levemir) 30 unit SC HS [facility] Last Admin: 04/16/17 21:57 Dose: 30 unit Insulin Human Lispro (Humalog Med) 0 units SC ACHS [facility] PRN Reason: Protocol Last Admin: 04/17/17 16:56 Dose: 1 units Latanoprost (Xalatan Opht) 0 ml OU HS [facility] Last Admin: 04/16/17 21:57 Dose: 2.5 ml Losartan Potassium (Cozaar) 100 mg PO DAILY [facility] Last Admin: 04/17/17 10:05 Dose: 100 mg Non-Formulary Medication (Brinzolamide/Brimonidine Tart [Simbrinza 1%-0.2% Eye Drops]) 8 ml OD TID [facility] Last Admin: 04/17/17 18:37 Dose: Not Given Oxcarbazepine (Trileptal) 150 mg PO DAILY [facility] Last Admin: 04/17/17 10:05 Dose: 150 mg Pantoprazole Sodium (Protonix Inj) 40 mg IVP DAILY [facility] Last Admin: 04/17/17 10:04 Dose: 40 mg Prednisolone Acetate (Pred Forte 1% Opht Susp) 0 ml OD QID [facility] Last Admin: 04/17/17 16:59 Dose: 1 drop - Labs Labs: 04/17/17 06:30 04/17/17 06:30 PT 11.4 Seconds (9.9-11.8) 04/14/17 00:10 INR 1.06 (0.93-1.08) 04/14/17 00:10 APTT 24.2 Seconds (23.7-30.8) 04/14/17 00:10 Attending/Attestation - Attestation I have personally seen and examined this patient.: Yes I have fully participated in the care of the patient.: Yes I have reviewed all pertinent clinical information, including history, physical exam and plan: Yes Notes (Text): 04/17/17 18:53 61 year old male with past medical history of hypertension, dyslipidemia, diabetes and meningioma s/p resection who presented with left sided weakness. CT head and MRI brain were negative for acute findings. He is on aspirin. LDL was 51. Neurology and PT evaluation were appreciated. Continue with home medications for hypertension and diabetes. He is pending placement to subacute rehab. Dee Rai MD Hospitalist.
[2017-04-17] MEDS: PrednisoLONE 1% Opht Susp(5 ml) OD SCH ×4 (10:09→22:20)
[2017-04-17] MEDS: Divalproex 500 mg DR(BID formulation) PO SCH ×2 (10:09→16:59)
[2017-04-17] MEDS: BRIMONIDINE TART OD SCH ×3 (10:10→18:37)
[2017-04-17] MEDS: [UNRECOGNIZED DRUG - OTHER] OD SCH ×3 (10:10→18:37)
[2017-04-17] MEDS: BRINZOLAMIDE OD SCH ×3 (10:10→18:37)
[2017-04-17 17:10] VITALS: PULSE 75
[2017-04-17] MEDS: Insulin Detemir 100 units/ml Vial (Levemir) SC SCH (22:19)
[2017-04-17] MEDS: Latanoprost 2.5 ml Opht Soln OU SCH (22:20)
[2017-04-18 07:17] VITALS: BP 131/78; TEMP 98.7; O2SAT 98
[2017-04-18] MEDS: Insulin Lispro (humaLOG) MEDIUM Coverage SC SCH (08:20)
[2017-04-18] MEDS: Divalproex 500 mg DR(BID formulation) PO SCH (09:29)
[2017-04-18] MEDS: [UNRECOGNIZED DRUG - OTHER] OD SCH (09:30)
[2017-04-18] MEDS: BRINZOLAMIDE OD SCH (09:30)
[2017-04-18] MEDS: BRIMONIDINE TART OD SCH (09:30)
[2017-04-18] MEDS: PrednisoLONE 1% Opht Susp(5 ml) OD SCH (09:33)
--- NOTE | 2017-04-18 10:53 | CP.PCM.DIS ---
<Edil Valdivia - Last Filed: 04/18/17 17:50> Provider - Provider Date of Admission: 04/15/17 15:09 Attending physician: Dee Rai MD Primary care physician: Tamara Ortez MD Time Spent in preparation of Discharge (in minutes): 35 Hospital Course - Lab Results Lab Results: Most Recent Lab Values WBC 4.5 10^3/ul (4.5-11.0) 04/17/17 06:30 RBC 3.77 10^6/uL (3.5-6.1) 04/17/17 06:30 Hgb 10.8 g/dL (14.0-18.0) L 04/17/17 06:30 Hct 31.8 % (42.0-52.0) L 04/17/17 06:30 MCV 84.4 fl (80.0-105.0) 04/17/17 06:30 MCH 28.6 pg (25.0-35.0) 04/17/17 06:30 MCHC 34.0 g/dl (31.0-37.0) 04/17/17 06:30 RDW 13.7 % (11.5-14.5) 04/17/17 06:30 Plt Count 178 10^3/uL (120.0-450.0) 04/17/17 06:30 MPV 10.1 fl (7.0-11.0) 04/17/17 06:30 Gran % 71.0 % (50.0-68.0) H 04/14/17 00:10 Lymph % (Auto) 20.8 % (22.0-35.0) L 04/14/17 00:10 [place] % (Auto) 6.6 % (1.0-6.0) H 04/14/17 00:10 Eos % (Auto) 1.4 % (1.5-5.0) L 04/14/17 00:10 Baso % (Auto) 0.2 % (0.0-3.0) 04/14/17 00:10 Gran # 4.17 (1.4-6.5) 04/14/17 00:10 Lymph # 1.2 (1.2-3.4) 04/14/17 00:10 [place] # 0.4 (0.1-0.6) 04/14/17 00:10 Eos # 0.1 (0.0-0.7) 04/14/17 00:10 Baso # 0.01 K/mm3 (0.0-2.0) 04/14/17 00:10 PT 11.4 Seconds (9.9-11.8) 04/14/17 00:10 INR 1.06 (0.93-1.08) 04/14/17 00:10 APTT 24.2 Seconds (23.7-30.8) 04/14/17 00:10 Sodium 136 mmol/L (132-148) 04/17/17 06:30 Potassium 4.4 mmol/L (3.6-5.0) 04/17/17 06:30 Chloride 97 mmol/L (98-107) L 04/17/17 06:30 Carbon Dioxide 31 mmol/L (21-33) 04/17/17 06:30 Anion Gap 12 (10-20) 04/17/17 06:30 BUN 23 mg/dL (7-21) H 04/17/17 06:30 Creatinine 0.8 mg/dL (0.8-1.5) 04/17/17 06:30 Est GFR ( Amer) > 60 04/17/17 06:30 Est GFR (Non-Af Amer) > 60 04/17/17 06:30 POC Glucose (mg/dL) 291 mg/dL (65-110) H 04/14/17 21:24 Random Glucose 207 mg/dL (70-110) H 04/17/17 06:30 Hemoglobin A1c 9.7 % (4.2-6.5) H 04/14/17 00:10 Calcium 9.0 mg/dL (8.4-10.5) 04/17/17 06:30 Phosphorus 4.3 mg/dL (2.5-4.5) 04/14/17 13:30 Magnesium 2.0 mg/dL (1.7-2.2) 04/14/17 13:30 Total Bilirubin 0.3 mg/dL (0.2-1.3) 04/17/17 06:30 AST 31 U/L (17-59) 04/17/17 06:30 ALT 49 U/L (7-56) 04/17/17 06:30 Alkaline Phosphatase 88 U/L (38-126) 04/17/17 06:30 Troponin I < 0.01 ng/mL 04/14/17 00:10 Total Protein 6.3 g/dL (5.8-8.3) 04/17/17 06:30 Albumin 3.6 g/dL (3.0-4.8) 04/17/17 06:30 Globulin 2.7 gm/dL 04/17/17 06:30 Albumin/Globulin Ratio 1.3 (1.1-1.8) 04/17/17 06:30 Triglycerides 98 mg/dL (35-160) 04/14/17 00:10 Cholesterol 124 mg/dL (130-200) L 04/14/17 00:10 LDL Cholesterol Direct 51 mg/dL (0-129) 04/14/17 00:10 HDL Cholesterol 55 mg/dL (29-60) 04/14/17 00:10 Valproic Acid 44 ug/mL (50.0-100.0) L 04/14/17 13:30 10-Hydroxycarbazepine 4.8 mcg/mL (8.0-35.0) L 04/14/17 08:00 Blood Type AB POSITIVE 04/14/17 00:10 Blood Type Confirm AB POSITIVE 04/14/17 01:30 Antibody Screen Negative 04/14/17 00:10 BBK History Checked No verified bt 04/14/17 00:10 - Hospital Course Hospital Course: Pt is a 61 yo male with PMH HTN, HLD, DM2, and meningioma presents with c/o possible stroke. Pt states that around 7:30 pm this evening patient was at home when he began to feel weak and numb in his left arm. Pt denies any prior history of focal weaknesses or any stroke like symptoms. At the time of the event, pt denied LOC, dizziness, fatigue, HEARD, leg weakness/numbness, or facial droop. Pt was initially take to [facility] by his to be evaluated. After workup, pt was discharged home. However, the patient's subsequently brought him to [facility] after discharge from [facility]. At the time of examination, pt states that he still had left arm weakness and some numbness on the back of his hand. Pt states that his vision is poor overall. Pt denied CP, SOB, n/v/d, chills, fever , abdominal pain, HEARD, dizziness, fatigue, constipation, or dysuria. The patient was seen by Neurology while admitted to the hospital. Patient had a chest x ray done that was negative. The patient also had a head ct done that showed non specific white matter changes, and acute infarction may be CT occult within first 24 hours and to consider follow up with CT or MRI for further evaluation. Patient had a MRI of the brain as a result that showed right frontal encephalomalacia and atrophy with no acute intracranial findings. The patient was seen by Neurology who recommended an outpatient EEG, physical therapy and to continue Depakote and Trileptal. The patient was approved for rehab at [facility] and was discharged today. Discharge Exam - Head Exam Head Exam: ATRAUMATIC, NORMAL INSPECTION, NORMOCEPHALIC - Eye Exam Eye Exam: EOMI, Normal appearance, PERRL. absent: Periorbital tenderness Pupil Exam: NORMAL ACCOMODATION, PERRL. absent: Irregular, Unequal - ENT Exam ENT Exam: Mucous Membranes Moist, Normal Oropharynx - Neck Exam Neck exam: Normal Inspection - Respiratory Exam Respiratory Exam: Clear to PA & Lateral, NORMAL BREATHING PATTERN, UNREMARKABLE. absent: Prolonged Expiratory Phase, Respiratory Distress - Cardiovascular Exam Cardiovascular Exam: REGULAR RHYTHM, RRR, +S1, +S2. absent: Diastolic murmur, Gallop, Rubs - GI/Abdominal Exam GI & Abdominal Exam: Normal Bowel Sounds, Unremarkable. absent: Diminished Bowel Sounds, Hypoactive Bowel Sounds, Organomegaly - Extremities Exam Extremities exam: full ROM - Back Exam Back exam: NORMAL INSPECTION. absent: CVA tenderness (L), CVA tenderness (R), paraspinal tenderness - Neurological Exam Neurological exam: Alert, CN II-XII Intact, Oriented x3, Reflexes Normal - Psychiatric Exam Psychiatric exam: Normal Affect, Normal Mood - Skin Skin Exam: Dry, Intact, Normal Color Discharge Plan - Discharge Medications Prescriptions: Aspirin [Aspirin Chewable] 81 mg PO DAILY #30 ctb - Follow Up Plan Condition: FAIR Disposition: REHAB FACILITY/REHAB UNIT Instructions: Transient Ischemic Attack (DC), Ischemic Stroke (GEN) Additional Instructions: Patient advised to follow up with PMD within on week of discharge. Patient advised to return to emergency department for any new or worsening symptoms. Referrals: Tamara Ortez MD [Primary Care Provider] - <Dee Rai Last Filed: 04/19/17 17:23> Provider - Provider Date of Admission: 04/15/17 15:09 Attending physician: Dee Rai MD Primary care physician: Tamara Ortez MD Hospital Course - Lab Results Lab Results: Most Recent Lab Values WBC 4.5 10^3/ul (4.5-11.0) 04/17/17 06:30 RBC 3.77 10^6/uL (3.5-6.1) 04/17/17 06:30 Hgb 10.8 g/dL (14.0-18.0) L 04/17/17 06:30 Hct 31.8 % (42.0-52.0) L 04/17/17 06:30 MCV 84.4 fl (80.0-105.0) 04/17/17 06:30 MCH 28.6 pg (25.0-35.0) 04/17/17 06:30 MCHC 34.0 g/dl (31.0-37.0) 04/17/17 06:30 RDW 13.7 % (11.5-14.5) 04/17/17 06:30 Plt Count 178 10^3/uL (120.0-450.0) 04/17/17 06:30 MPV 10.1 fl (7.0-11.0) 04/17/17 06:30 Gran % 71.0 % (50.0-68.0) H 04/14/17 00:10 Lymph % (Auto) 20.8 % (22.0-35.0) L 04/14/17 00:10 [place] % (Auto) 6.6 % (1.0-6.0) H 04/14/17 00:10 Eos % (Auto) 1.4 % (1.5-5.0) L 04/14/17 00:10 Baso % (Auto) 0.2 % (0.0-3.0) 04/14/17 00:10 Gran # 4.17 (1.4-6.5) 04/14/17 00:10 Lymph # 1.2 (1.2-3.4) 04/14/17 00:10 [place] # 0.4 (0.1-0.6) 04/14/17 00:10 Eos # 0.1 (0.0-0.7) 04/14/17 00:10 Baso # 0.01 K/mm3 (0.0-2.0) 04/14/17 00:10 PT 11.4 Seconds (9.9-11.8) 04/14/17 00:10 INR 1.06 (0.93-1.08) 04/14/17 00:10 APTT 24.2 Seconds (23.7-30.8) 04/14/17 00:10 Sodium 136 mmol/L (132-148) 04/17/17 06:30 Potassium 4.4 mmol/L (3.6-5.0) 04/17/17 06:30 Chloride 97 mmol/L (98-107) L 04/17/17 06:30 Carbon Dioxide 31 mmol/L (21-33) 04/17/17 06:30 Anion Gap 12 (10-20) 04/17/17 06:30 BUN 23 mg/dL (7-21) H 04/17/17 06:30 Creatinine 0.8 mg/dL (0.8-1.5) 04/17/17 06:30 Est GFR ( Amer) > 60 04/17/17 06:30 Est GFR (Non-Af Amer) > 60 04/17/17 06:30 POC Glucose (mg/dL) 173 mg/dL (65-110) H 04/18/17 07:33 Random Glucose 207 mg/dL (70-110) H 04/17/17 06:30 Hemoglobin A1c 9.7 % (4.2-6.5) H 04/14/17 00:10 Calcium 9.0 mg/dL (8.4-10.5) 04/17/17 06:30 Phosphorus 4.3 mg/dL (2.5-4.5) 04/14/17 13:30 Magnesium 2.0 mg/dL (1.7-2.2) 04/14/17 13:30 Total Bilirubin 0.3 mg/dL (0.2-1.3) 04/17/17 06:30 AST 31 U/L (17-59) 04/17/17 06:30 ALT 49 U/L (7-56) 04/17/17 06:30 Alkaline Phosphatase 88 U/L (38-126) 04/17/17 06:30 Troponin I < 0.01 ng/mL 04/14/17 00:10 Total Protein 6.3 g/dL (5.8-8.3) 04/17/17 06:30 Albumin 3.6 g/dL (3.0-4.8) 04/17/17 06:30 Globulin 2.7 gm/dL 04/17/17 06:30 Albumin/Globulin Ratio 1.3 (1.1-1.8) 04/17/17 06:30 Triglycerides 98 mg/dL (35-160) 04/14/17 00:10 Cholesterol 124 mg/dL (130-200) L 04/14/17 00:10 LDL Cholesterol Direct 51 mg/dL (0-129) 04/14/17 00:10 HDL Cholesterol 55 mg/dL (29-60) 04/14/17 00:10 Valproic Acid 44 ug/mL (50.0-100.0) L 04/14/17 13:30 10-Hydroxycarbazepine 4.8 mcg/mL (8.0-35.0) L 04/14/17 08:00 Blood Type AB POSITIVE 04/14/17 00:10 Blood Type Confirm AB POSITIVE 04/14/17 01:30 Antibody Screen Negative 04/14/17 00:10 BBK History Checked No verified bt 04/14/17 00:10 Attending/Attestation - Attestation I have personally seen and examined this patient.: Yes I have fully participated in the care of the patient.: Yes I have reviewed all pertinent clinical information, including history, physical exam and plan: Yes Notes (Text): 04/19/17 17:22 61 year old male with past medical history of hypertension, dyslipidemia, diabetes and meningioma s/p resection who presented with left sided weakness. CT head and MRI brain were negative for acute findings. He was on aspirin. LDL was 51. He was seen by neurology and PT. He is discharged to [facility]. Follow up with pmd. Follow up with neurologist. Neurology and PT evaluation were appreciated. Dee Rai MD Hospitalist.
[2017-04-18] MEDS ORDERED: Insulin Lispro 1 UNITS/0.01 ML SC SCH (11:30)
[2017-04-18] MEDS ORDERED: INSULIN ASPART RECOMBINANT 10 UNIT SC SCH (11:30)
[2017-04-18] MEDS ORDERED: BRIMONIDINE TART OD SCH (14:00)
[2017-04-18] MEDS ORDERED: PrednisoLONE 1% Opht Susp(5 ml) OD SCH (14:00)
[2017-04-18] MEDS ORDERED: BRINZOLAMIDE OD SCH (14:00)
[2017-04-18] MEDS ORDERED: MOXIFLOXACIN HCL OD SCH (14:00)
[2017-04-18] MEDS ORDERED: [UNRECOGNIZED DRUG - OTHER] OD SCH (14:00)
[2017-04-18] MEDS ORDERED: LEVEMIR 30 UNIT SQ SCH (22:00)
[2017-04-18] MEDS ORDERED: Latanoprost 2.5 ml Opht Soln OU SCH (22:00)
[2017-04-18] MEDS ORDERED: Insulin Detemir 100 units/ml Vial (Levemir) SC SCH (22:00)
[2017-04-18] MEDS ORDERED: TRAVOPROST OU SCH (22:00)
[2017-04-19] MEDS ORDERED: Divalproex 500 mg DR(BID formulation) PO SCH (10:00)
== END 2017-04-18 11:15 | DRG 69 ==
LOC: ED 23:34 → ERH 04-14 01:06 → 3RNO 04-14 11:30 → UNDODISOB 04-14 15:43 → OBSVTOIN 04-15 15:09
PROVIDERS: ADMIT Internal Medicine; ATTEND Internal Medicine
DX: G45.9 Transient cerebral ischemic attack, unspecified (principal); E11.41 Type 2 diabetes mellitus with diabetic mononeuropathy; G93.89 Other specified disorders of brain; I69.359 Hemiplegia and hemiparesis following cerebral infarction affecting unspecified side; I10 Essential (primary) hypertension; E78.5 Hyperlipidemia, unspecified; J44.9 Chronic obstructive pulmonary disease, unspecified; E78.00 Pure hypercholesterolemia, unspecified; D32.9 Benign neoplasm of meninges, unspecified; E11.65 Type 2 diabetes mellitus with hyperglycemia; H54.61 Unqualified visual loss, right eye, normal vision left eye; Z79.82 Long term (current) use of aspirin; Z79.899 Other long term (current) drug therapy; Z86.69 Personal history of other diseases of the nervous system and sense organs; I69.328 Other speech and language deficits following cerebral infarction; H40.9 Unspecified glaucoma

== ENCOUNTER 2017-07-26 20:08 | Observation (INO) | payer MEDICAID, MEDICARE ==
--- NOTE | 2017-07-26 20:41 | ED PDOC ---
Arrival/HPI - General Chief Complaint: Dizziness/Lightheaded Time Seen by Provider: 07/26/17 20:15 Historian: Patient - History of Present Illness Narrative History of Present Illness (Text): 07/26/17 20:20 Abdullahi Brink is a 61 year old male who presents to the emergency department complaining of 5 episodes of diarrhea and left hand pain today. Patient states that because of experiencing diarrhea while in bed, patient slipped from his bed and hurt his left hand. Patient has no other complaints at this time. Time/Duration: 1-3 hours Symptom Onset: Gradual Symptom Course: Unchanged Activities at Onset: Light Context: Home Past Medical History - Provider Review Nursing Documentation Reviewed: Yes - Infectious Disease Hx of Infectious Diseases: None - Tetanus Immunization Tetanus Immunization: Unknown - Cardiac Hx Hypertension: Yes - Pulmonary Hx Respiratory Disorders: No - Neurological HX Cerebrovascular Accident: Yes (3 months ago march 2017) - HEENT Hx HEENT Disorder: Yes Hx Blind: Yes (right eye) Other/Comment: RIGHT EYE RETINA PROBLEM/Right eye blindness as per patient. - Renal Hx Renal Disorder: No - Endocrine/Metabolic Hx Diabetes Mellitus Type 2: Yes - Hematological/Oncological Hx Blood Disorders: No - Integumentary Hx Dermatological Disorder: No - Musculoskeletal/Rheumatological Hx Arthritis: Yes (BACK) Other/Comment: Left sided weakness r/t CVA - Gastrointestinal Hx Gastrointestinal Disorders: No Other/Comment: Incontinet of stool - Genitourinary/Gynecological Hx Genitourinary Disorders: No Hx Incontinence: Yes Other/Comment: Incontinent of urine. - Psychiatric Hx Depression: Yes Hx Substance Use: No - Surgical History Hx Tonsillectomy: Yes Other/Comment: 2010 brain tumor removal - Anesthesia Hx Anesthesia: Yes Hx Anesthesia Reactions: Yes (vomiting) Hx Malignant Hyperthermia: No - Suicidal Assessment Feels Threatened In Home Enviroment: No Family/Social History - Physician Review Nursing Documentation Reviewed: Yes Family/Social History: No Known Family HX Smoking Status: Never Smoked Hx Alcohol Use: No Hx Substance Use: No Hx Substance Use Treatment: No Allergies/Home Meds Allergies/Adverse Reactions: Allergies No Known Allergies Allergy (Verified 07/26/17 20:32) Home Medications: Home Meds Medication Instructions Recorded Confirmed Atorvastatin [Lipitor] 10 mg PO DIN 04/14/17 06/07/17 Divalproex [Depakote DR] 500 mg PO BID 04/14/17 06/07/17 Levemir Flexpen 30 units SQ HS 04/14/17 06/07/17 Losartan [Cozaar] 100 mg PO DAILY 04/14/17 06/07/17 Oxcarbazepine [Trileptal] 150 mg PO DAILY 04/14/17 06/07/17 PrednisoLONE 1% [Pred Forte 1% 1 drop OU DAILY 04/14/17 06/07/17 Opht Susp] Acetaminophen 500 mg PO Q4H PRN 06/07/17 06/07/17 Docusate [Colace] 100 mg PO HS 06/07/17 06/07/17 Esomeprazole Magnesium [Nexium] 40 mg PO DAILY 06/07/17 06/07/17 Latanoprost 0.005% Opht [Xalatan 1 drop OU HS 06/07/17 06/07/17 Opht] Review of Systems - Physician Review All systems were reviewed & negative as marked: Yes - Review of Systems Constitutional: absent: Fevers, Night Sweats Eyes: absent: Vision Changes ENT: absent: Hearing Changes Respiratory: absent: SOB, Cough Cardiovascular: absent: Chest Pain Gastrointestinal: Diarrhea. absent: Abdominal Pain Genitourinary Male: absent: Dysuria Musculoskeletal: absent: Arthralgias Skin: absent: Rash, Pruritis Neurological: absent: Headache Endocrine: absent: Diaphoresis Hemo/Lymphatic: absent: Adenopathy Psychiatric: absent: Anxiety, Depression Physical Exam Vital Signs Reviewed: Yes Vital Signs Temp Pulse Resp BP Pulse Ox 07/26/17 20:24 98.1 F 86 18 148/84 98 Temperature: Afebrile Blood Pressure: Normal Pulse: Regular Respiratory Rate: Normal Appearance: Positive for: Well-Appearing, Non-Toxic, Comfortable Pain Distress: None Mental Status: Positive for: Alert and Oriented X 3 - Systems Exam Head: Present: Other (scar to right frontal forehead from previous craniotomy ) Pupils: Present: PERRL Extroacular Muscles: Present: EOMI Conjunctiva: Present: Normal Mouth: Present: Moist Mucous Membranes Neck: Present: Normal Range of Motion Respiratory/Chest: Present: Clear to Auscultation, Good Air Exchange. No: Respiratory Distress, Accessory Muscle Use Cardiovascular: Present: Regular Rate and Rhythm, Normal S1, S2. No: Murmurs Abdomen: Present: Normal Bowel Sounds. No: Tenderness, Distention, Peritoneal Signs Back: Present: Normal Inspection Upper Extremity: Present: Other (old left sided deficits) Lower Extremity: Present: Normal Inspection. No: Edema Neurological: Present: GCS=15, CN II-XII Intact, Speech Normal Skin: Present: Warm, Dry, Normal Color. No: Rashes Psychiatric: Present: Alert, Oriented x 3, Normal Insight, Normal Concentration Medical Decision Making ED Course and Treatment: 07/26/17 20:43 Impression: 61 year old male who presents to the emergency department complaining of 5 episodes of diarrhea and left hand pain today. Differential Diagnosis included but are not limited to: Plan: -- Abdomen X-ray -- Left hand x-ray -- VBG and Blood Culture -- Urine Culture -- Stool Culture -- Labs -- Reassess and disposition Prior Visits: Notes and results from previous visits were reviewed. Patient was last seen in the emergency department on 06/07/17 for not being taken care of at home. Patient was admitted to hospitalist care for further evaluation. Progress Notes: EKG: Ordered, reviewed, and independently interpreted the EKG. Rate : 86 BPM Rhythm : NSR Interpretation : Normal axis, normal intervals. 07/27/17 00:[address] Tracey, who agrees and accepts patient to be admitted under his service. - Lab Interpretations Lab Results: 07/26/17 20:55 07/26/17 20:55 Lab Results 07/26/17 20:55: Sodium 140, Potassium 3.4 L, Chloride 102, Carbon Dioxide 25, Anion Gap 16, BUN 24 H, Creatinine 0.8, Est GFR ( Amer) > 60, Est GFR ( Non-Af Amer) > 60, Random Glucose 186 H, Calcium 9.8, Total Bilirubin 0.3, AST 24, ALT 31, Alkaline Phosphatase 70, Total Protein 6.9, Albumin 3.9, Globulin 3.1, Albumin/Globulin Ratio 1.3, Lipase 26 07/26/17 20:55: pO2 39, VBG pH 7.37, VBG pCO2 51.0, VBG HCO3 29.5 H, VBG O2 Sat (Calc) 79.9 H, VBG Base Excess 3.1 H 07/26/17 20:55: PT 12.1, INR 1.06 07/26/17 20:55: WBC 5.4, RBC 3.62, Hgb 10.7 L, Hct 31.5 L, MCV 87.0, MCH 29.6, MCHC 34.0, RDW 13.8, Plt Count 213, MPV 9.8, Gran % 63.7, Lymph % (Auto) 27.4, [place] % (Auto) 5.9, Eos % (Auto) 2.8, Baso % (Auto) 0.2, Gran # 3.47, Lymph # 1.5 , Cass # 0.3, Eos # 0.2, Baso # 0.01 - RAD Interpretation Radiology Orders: 07/26/17 20:53 ABD 2 VIEWS (FLAT/UP OR DECUB) [RAD] Stat HAND LEFT 3 VIEWS ROUTINE [RAD] Stat - Medication Orders Current Medication Orders: Discontinued Medications Sodium Chloride (Sodium Chloride 0.9%) 1,000 mls @ 999 mls/hr IV .Q1H1M STA Stop: 07/27/17 00:06 Last Admin: 07/27/17 00:00 Dose: 999 mls/hr eMAR Start Stop Document 07/27/17 00:00 AD (Rec: 07/27/17 00:00 AD [email or web address] Intravenous Solution Start Date 07/27/17 Start Time 00:00 Potassium Chloride (K-Dur 20 Meq Er Tab) 20 meq PO STAT STA Stop: 07/26/17 23:06 Last Admin: 07/27/17 00:00 Dose: 20 meq - Scribe Statement The provider has reviewed the documentation as recorded by the Lukas Ribera Provider Scribe Attestation: All medical record entries made by the Lukas were at my direction and personally dictated by me. I have reviewed the chart and agree that the record accurately reflects my personal performance of the history, physical exam, medical decision making, and the department course for this patient. I have also personally directed, reviewed, and agree with the discharge instructions and disposition. Disposition/Present on Arrival - Present on Arrival Any Indicators Present on Arrival: No History of DVT/PE: No History of Uncontrolled Diabetes: Yes Urinary Catheter: No History of Decub. Ulcer: No History Surgical Site Infection Following: None - Disposition Have Diagnosis and Disposition been Completed?: Yes Diagnosis: Diarrhea, Fall, CVA, old, hemiparesis, Dehydration Disposition: HOSPITALIZED Disposition Time: 01:03 (Dr Tracey Accepts Admission for Dr. Jong Lora) Patient Plan: Observation Condition: GOOD [facility]errals: [facility] Profile Req, [Primary Care Provider] - Follow up with primary Forms: [employer] (Lao)
[2017-07-26 21:08] LABS: VENOUS BLOOD GAS BASE EXCESS 3.1 mmol/L (0.0-2.0); VENOUS BLOOD GAS PO2 39 mm/Hg (30-55); VENOUS BLOOD PH 7.37 (7.32-7.43)
[2017-07-26 21:17] LABS: ALB/GLOB RATIO 1.3 (1.1-1.8); ALBUMIN 3.9 g/dL (3.0-4.8); ALT/SGPT 31 U/L (7-56); AST/SGOT 24 U/L (17-59); BASO # 0.01 K/mm3 (0.0-2.0); BASO % 0.2 % (0.0-3.0); BLOOD UREA NITROGEN 24 mg/dL (7-21); CALCIUM 9.8 mg/dL (8.4-10.5); EOS # 0.2 (0.0-0.7); EOS % 2.8 % (1.5-5.0); GFR AFRICAN-AMERICAN > 60; GFR NON-AFRICAN AMERICAN > 60; GRAN # 3.47 (1.4-6.5); GRAN % 63.7 % (50.0-68.0); HEMOGLOBIN 10.7 g/dL (14.0-18.0); LIPASE 26 U/L (23-300); LYMPH # 1.5 (1.2-3.4); LYMPH % 27.4 % (22.0-35.0); MEAN CORPUSCULAR HEMOGLOBIN 29.6 pg (25.0-35.0); MEAN PLATELET VOLUME 9.8 fl (7.0-11.0); MONO # 0.3 (0.1-0.6); MONO % 5.9 % (1.0-6.0); RBC 3.62 10^6/uL (3.5-6.1); RED CELL DISTRIBUTION WIDTH 13.8 % (11.5-14.5); WHITE BLOOD COUNT 5.4 10^3/ul (4.5-11.0)
[2017-07-26 21:19] LABS: INR 1.06 (0.93-1.08); PROTHROMBIN TIME 12.1 SECONDS (9.4-12.5)
[2017-07-26] MEDS ORDERED: Potassium Chloride 20 mEq ER Tab PO STA (23:05)
[2017-07-26] MEDS ORDERED: Sodium Chloride 0.9% 1,000 ML IV STA (23:06)
--- NOTE | 2017-07-27 00:42 | CP.PCM.HP ---
<Pranav Coleman - Last Filed: 07/27/17 01:46> History of Present Illness - History of Present Illness History of Present Illness: CC: Diarrhea Subjective: HPI: Patient is a 61 year old male with past medical history of HTN, HLD, DM2, meningioma who presents to the emergency department for evaluation and treatment of 4-5 bouts of nonbloody diarrhea, which began yesterday afternoon with no provoking event. States that during transfer to his bedside commode he experienced a fall. Denied loss of consciousness and head trauma. Admits to residual left arm pain s/p fall. Also admits to associated nausea, 2 bouts of nonbloody nonbilious emesis, and abdominal discomfort all of which have resolved since onset. Denies recent travel and sick contacts. Patient denies intractable headache, fever, chills, dizziness, blurry vision, ringing in the ears, chest pain, shortness of breath, constipation, and urinary symptoms. ROS: 12 point review of systems negative except as indicated in HPI PMHx: HTN, HLD, DM2, CVA 2017, meningioma PSHx: Craniotomy (2009) Family Hx: COPD Social Hx: denies ETOH use, tobacco use, illicit drug use Medications: Please see medication reconciliation PMD: Dr. Crenshaw Pharmacy: [facility] Physical Examination: - Constitutional Appears: Non-toxic, No Acute Distress - Head Exam Head Exam: atraumatic, normocephalic - Eye Exam Eye Exam: Normal appearance, PERRL. absent: Scleral icterus - ENT Exam ENT Exam: Mucous Membranes Moist - Neck Exam Neck exam: Normal Inspection - Respiratory Exam Respiratory Exam: Normal Breathing Pattern - Cardiovascular Exam Cardiovascular Exam: +S1, +S2. absent: Gallop, JVD - GI/Abdominal Exam GI & Abdominal Exam: Normal Bowel Sounds, absent: Distended, Guarding, Pulsatile Mass, Rebound, Rigid - Extremities Exam Extremities exam: Negative for: calf tenderness - Neurological Exam Neurological exam: Patient is awake, alert, responds to verbal stimuli, answers questions appropriately, follows commands, and moves lower extremities past midline; left UE weakness 3/5 muscle strength - Psychiatric Exam Psychiatric exam: Normal Affect, Normal Mood - Skin Skin Exam: warm and dry Assessment and Plan: Patient is a 61 year old male with past medical history of HTN, HLD, DM2, meningioma who was admitted for evaluation and treatment of diarrhea. Diarrhea, N/V, Abdominal Pain - colitis vs IBS vs IBD - probiotic - IVF NS @ 75 - c. diff assay pending - stool culture pending - abdominal xray ordered by ED- pending at time of admission - CT abd/pelvis ordered and pending - empiric flagyl started - zofran prn nausea, EKG reviewed and appreciated- NSR QTc 454 Left Hand Somatic Pain - left hand xray pending - Tylenol prn pain Hypokalemia - repleted and monitor closely via CMP - mag level ordered for AM Anemia - Hgb reviewed, trended, and appreciated- at baseline - monitor closely via CBC - consider iron, tibc, ferritin, peripheral smear pending patients clinical course Hx of CAD - c/w aspirin - restart statin once dose is confirmed Hx of Htn - please confirm home medications with pharmacy prior to starting medications - hydralazine 5mg IV q6 prn SBP > 180, holding parameters- do not administer if HR is > 100 bpm Hx of Hyperlipidemia - restart statin once dose is confirmed - lipid profile pending Hx of Diabetes - hold home diabetic medications - fingersticks ACHS - insulin sliding scale- lispro medium - a1c pending - resume diet as carb consistent Hx of CVA - residual left upper extremity weakness - PT/OT Prophylaxis - DVT ppx- scds - GI ppx- famotidine Patient case discussed with and plan approved by attending physician. 07/27/17 00:36 Present on Admission - Present on Admission Any Indicators Present on Admission: No Past Patient History - Infectious Disease Hx of Infectious Diseases: None - Tetanus Immunizations Tetanus Immunization: Unknown - Past Medical History & Family History Past Medical History?: Yes - Past Social History Smoking Status: Never Smoked - CARDIAC Hx Hypertension: Yes - PULMONARY Hx Respiratory Disorders: No - NEUROLOGICAL HX Cerebrovascular Accident: Yes (3 months ago march 2017) - HEENT Hx HEENT Problems: Yes Hx Blind: Yes (right eye) Other/Comment: RIGHT EYE RETINA PROBLEM/Right eye blindness as per patient. - RENAL Hx Chronic Kidney Disease: No - ENDOCRINE/METABOLIC Hx Diabetes Mellitus Type 2: Yes - HEMATOLOGICAL/ONCOLOGICAL Hx Blood Disorders: No - INTEGUMENTARY Hx Dermatological Problems: No - MUSCULOSKELETAL/RHEUMATOLOGICAL Hx Arthritis: Yes (BACK) Other/Comment: Left sided weakness r/t CVA - GASTROINTESTINAL Hx Gastrointestinal Disorders: No Other/Comment: Incontinet of stool - GENITOURINARY/GYNECOLOGICAL Hx Genitourinary Disorders: No Hx Incontinence: Yes Other/Comment: Incontinent of urine. - PSYCHIATRIC Hx Depression: Yes Hx Substance Use: No - SURGICAL HISTORY Hx Tonsillectomy: Yes Other/Comment: 2010 brain tumor removal - ANESTHESIA Hx Anesthesia: Yes Hx Anesthesia Reactions: Yes (vomiting) Hx Malignant Hyperthermia: No Meds Allergies/Adverse Reactions: Allergies Allergy/AdvReac Type Severity Reaction Status Date / Time No Known Allergies Allergy Verified 07/26/17 20:32 Results - Vital Signs Recent Vital Signs: Last Vital Signs Temp 98.1 F 07/26/17 20:24 Pulse 86 07/26/17 20:24 Resp 18 07/26/17 20:24 BP 148/84 07/26/17 20:24 Pulse Ox 98 07/26/17 20:24 - Labs Result Diagrams: 07/26/17 20:55 07/26/17 20:55 Labs: Laboratory Results - last 24 hr 07/26/17 07/26/17 07/26/17 20:55 20:55 20:55 WBC 5.4 RBC 3.62 Hgb 10.7 L Hct 31.5 L MCV 87.0 MCH 29.6 MCHC 34.0 RDW 13.8 Plt Count 213 MPV 9.8 Gran % 63.7 Lymph % (Auto) 27.4 [place] % (Auto) 5.9 Eos % (Auto) 2.8 Baso % (Auto) 0.2 Gran # 3.47 Lymph # 1.5 [place] # 0.3 Eos # 0.2 Baso # 0.01 PT 12.1 INR 1.06 pO2 39 VBG pH 7.37 VBG pCO2 51.0 VBG HCO3 29.5 H VBG O2 Sat (Calc) 79.9 H VBG Base Excess 3.1 H Sodium Potassium Chloride Carbon Dioxide Anion Gap BUN Creatinine Est GFR ( Amer) Est GFR (Non-Af Amer) Random Glucose Calcium Total Bilirubin AST ALT Alkaline Phosphatase Total Protein Albumin Globulin Albumin/Globulin Ratio Lipase 07/26/17 20:55 WBC RBC Hgb Hct MCV MCH MCHC RDW Plt Count MPV Gran % Lymph % (Auto) [place] % (Auto) Eos % (Auto) Baso % (Auto) Gran # Lymph # [place] # Eos # Baso # PT INR pO2 VBG pH VBG pCO2 VBG HCO3 VBG O2 Sat (Calc) VBG Base Excess Sodium 140 Potassium 3.4 L Chloride 102 Carbon Dioxide 25 Anion Gap 16 BUN 24 H Creatinine 0.8 Est GFR ( Amer) > 60 Est GFR (Non-Af Amer) > 60 Random Glucose 186 H Calcium 9.8 Total Bilirubin 0.3 AST 24 ALT 31 Alkaline Phosphatase 70 Total Protein 6.9 Albumin 3.9 Globulin 3.1 Albumin/Globulin Ratio 1.3 Lipase 26 <Deacon Tracey - Last Filed: 07/27/17 03:51> Results - Vital Signs Recent Vital Signs: Last Vital Signs Temp 98.1 F 07/26/17 20:24 Pulse 77 07/27/17 03:21 Resp 18 07/27/17 03:21 BP 148/90 07/27/17 03:21 Pulse Ox 100 07/27/17 03:21 - Labs Result Diagrams: 07/26/17 20:55 07/26/17 20:55 Attending/Attestation - Attestation I have personally seen and examined this patient.: Yes I have fully participated in the care of the patient.: Yes I have reviewed all pertinent clinical information: Yes Notes (Text): 07/27/17 03:51 Patient was seen when he was in bed # 13 in the ER. Agree with history, physical examination, assessment and plan.
[2017-07-27] MEDS ORDERED: Iohexol 240 (50 ml) ONE (02:04)
[2017-07-27] MEDS: Sodium Chloride 0.9% 1,000 ML IV SCH ×2 (03:07→20:07)
[2017-07-27 03:50] LABS: BASO # 0.01 K/mm3 (0.0-2.0); BASO % 0.2 % (0.0-3.0); EOS # 0.2 (0.0-0.7); EOS % 3.1 % (1.5-5.0); GRAN # 2.72 (1.4-6.5); GRAN % 56.6 % (50.0-68.0); HEMOGLOBIN 10.8 g/dL (14.0-18.0); LYMPH # 1.6 (1.2-3.4); LYMPH % 33.9 % (22.0-35.0); MEAN CELL VOLUME 86.7 fl (80.0-105.0); MEAN CORPUSCULAR HEMOGLOBIN 29.3 pg (25.0-35.0); MEAN CORPUSCULAR HGB CONC 33.9 g/dl (31.0-37.0); MEAN PLATELET VOLUME 9.7 fl (7.0-11.0); MONO # 0.3 (0.1-0.6); MONO % 6.2 % (1.0-6.0); RBC 3.68 10^6/uL (3.5-6.1); RED CELL DISTRIBUTION WIDTH 13.8 % (11.5-14.5); WHITE BLOOD COUNT 4.8 10^3/ul (4.5-11.0)
[2017-07-27 04:22] LABS: ALB/GLOB RATIO 1.2 (1.1-1.8); ALBUMIN 3.8 g/dL (3.0-4.8); ALT/SGPT 32 U/L (7-56); AST/SGOT 22 U/L (17-59); BLOOD UREA NITROGEN 23 mg/dL (7-21); CALCIUM 9.8 mg/dL (8.4-10.5); GFR AFRICAN-AMERICAN > 60; GFR NON-AFRICAN AMERICAN > 60; HDL CHOLESTEROL 40 mg/dL (29-60); MAGNESIUM 1.6 mg/dL (1.7-2.2)
[2017-07-27 04:30] LABS: LDL CHOLESTEROL 31 mg/dL (0-129)
--- NOTE | 2017-07-27 05:58 | CT ---
EXAM: CT Chest, Abdomen and Pelvis Without Intravenous Contrast EXAM DATE/TIME: 07/27/2017 1:40 AM CLINICAL HISTORY: 61 years old, male; Signs and symptoms; Other: Diarrhea TECHNIQUE: Axial computed tomography images of the entire chest,abdomen and pelvis with intravenous contrast. All CT scans at this facility use one or more dose reduction techniques, viz.: automated exposure control; ma/kV adjustment per patient size (including targeted exams where dose is matched to indication; i.e. head); or iterative reconstruction technique. Coronal and sagittal reformatted images were created and reviewed. CONTRAST: po COMPARISON: No relevant prior studies available. FINDINGS: No aortic aneurysm. No pleural or pericardial effussions. Minimal bibasilar atelectasis greater on the left. Small amount of sludge or calculi within the gallbladder. No pericholecystic inflammatory changes. The liver, spleen, and pancreas appear grossly normal on this non-contrast study. There is mild bilateral perinephric stranding. No hydronephrosis. Very mild adrenal gland thickening. Diffuse wall thickening in the anterior urinary bladder. No stranding in the adjacent fat to suggest infectious/inflammatory process confirmation with urinalysis could be performed if clinically indicated. Borderline prominent prostate. The bowel appears grossly normal. A normal appendix is identified axial series 3 images 165 through 192, coronal 72 through 79. There are degenerative changes in the osseous structures. Anterior wedging of the L1 vertebrae likely chronic.If there are prior studies, I would be happy to correlate them. IMPRESSION: Sludge or calculi in the gallbladder. Limited evaluation of solid organs. Urinary bladder wall thickening felt to be chronic. Borderline prominent prostate. L1 compression fracture probably chronic.
--- NOTE | 2017-07-27 09:17 | RAD ---
PROCEDURE: Left Hand Radiographs. HISTORY: Diarrhea COMPARISON: None. FINDINGS: BONES: Normal. No fracture. JOINTS: Flexion deformity of 2nd through 5th digit. No evidence of arthritis. SOFT TISSUES: Normal. OTHER FINDINGS: None. IMPRESSION: Flexion deformity 2nd through 5th digit. No evidence of arthritis or fracture.
[2017-07-27 09:18] VITALS: BMI 28.8
--- NOTE | 2017-07-27 09:18 | RAD ---
HISTORY: diarrhea COMPARISON: No prior. FINDINGS: BOWEL: Normal. No obstruction. No free air. BONES: Normal. OTHER FINDINGS: None. IMPRESSION: No active disease.
[2017-07-27] MEDS: Insulin Lispro (humaLOG) MEDIUM Coverage SC SCH ×4 (10:18→22:32)
[2017-07-27] MEDS: Lactobacillus Acidophilus 500 MU Cap PO SCH ×2 (10:24→17:32)
--- NOTE | 2017-07-27 17:37 | CARD ---
APPROVED REPORT EKG Measurement Heart [id number] <Conclusion> Normal sinus rhythm Normal ECG
[2017-07-27 18:38] VITALS: O2SAT 99
[2017-07-28 01:10] VITALS: RESP 18
[2017-07-28] MEDS: Sodium Chloride 0.9% 1,000 ML IV SCH (05:23)
[2017-07-28 06:03] VITALS: BP 131/87; PULSE 75; TEMP 98.7
[2017-07-28 06:37] LABS: ALB/GLOB RATIO 1.3 (1.1-1.8); ALBUMIN 3.4 g/dL (3.0-4.8); ALT/SGPT 30 U/L (7-56); AST/SGOT 23 U/L (17-59); BLOOD UREA NITROGEN 11 mg/dL (7-21); CALCIUM 9.4 mg/dL (8.4-10.5); GFR AFRICAN-AMERICAN > 60; GFR NON-AFRICAN AMERICAN > 60; MAGNESIUM 1.6 mg/dL (1.7-2.2)
[2017-07-28 07:00] LABS: BASO # 0.03 K/mm3 (0.0-2.0); BASO % 0.6 % (0.0-3.0); EOS # 0.1 (0.0-0.7); EOS % 1.7 % (1.5-5.0); GRAN # 2.97 (1.4-6.5); GRAN % 61.3 % (50.0-68.0); HEMOGLOBIN 10.2 g/dL (14.0-18.0); LYMPH # 1.3 (1.2-3.4); LYMPH % 27.5 % (22.0-35.0); MEAN CELL VOLUME 85.3 fl (80.0-105.0); MEAN CORPUSCULAR HGB CONC 35.2 g/dl (31.0-37.0); MEAN PLATELET VOLUME 9.9 fl (7.0-11.0); MONO # 0.4 (0.1-0.6); MONO % 8.9 % (1.0-6.0); RBC 3.4 10^6/uL (3.5-6.1); WHITE BLOOD COUNT 4.8 10^3/ul (4.5-11.0)
[2017-07-28] MEDS: Insulin Lispro (humaLOG) MEDIUM Coverage SC SCH ×2 (08:36→11:18)
[2017-07-28] MEDS: Lactobacillus Acidophilus 500 MU Cap PO SCH (09:17)
[2017-07-28] MEDS: Divalproex 500 mg DR(BID formulation) PO SCH ×2 (09:18→17:10)
--- NOTE | 2017-07-28 14:24 | CP.PCM.DIS ---
Provider - Provider Date of Admission: 07/27/17 01:04 Attending physician: Kirk Quan MD Hospital Course - Lab Results Lab Results: Micro Results 07/27/17 03:30 Blood-Venous Blood Culture - Preliminary NO GROWTH AFTER 24 HOURS Most Recent Lab Values WBC 4.8 10^3/ul (4.5-11.0) 07/28/17 06:00 RBC 3.40 10^6/uL (3.5-6.1) L 07/28/17 06:00 Hgb 10.2 g/dL (14.0-18.0) L 07/28/17 06:00 Hct 29.0 % (42.0-52.0) L 07/28/17 06:00 MCV 85.3 fl (80.0-105.0) 07/28/17 06:00 MCH 30.0 pg (25.0-35.0) 07/28/17 06:00 MCHC 35.2 g/dl (31.0-37.0) 07/28/17 06:00 RDW 14.0 % (11.5-14.5) 07/28/17 06:00 Plt Count 207 10^3/uL (120.0-450.0) 07/28/17 06:00 MPV 9.9 fl (7.0-11.0) 07/28/17 06:00 Gran % 61.3 % (50.0-68.0) 07/28/17 06:00 Lymph % (Auto) 27.5 % (22.0-35.0) 07/28/17 06:00 [place] % (Auto) 8.9 % (1.0-6.0) H 07/28/17 06:00 Eos % (Auto) 1.7 % (1.5-5.0) 07/28/17 06:00 Baso % (Auto) 0.6 % (0.0-3.0) 07/28/17 06:00 Gran # 2.97 (1.4-6.5) 07/28/17 06:00 Lymph # 1.3 (1.2-3.4) 07/28/17 06:00 [place] # 0.4 (0.1-0.6) 07/28/17 06:00 Eos # 0.1 (0.0-0.7) 07/28/17 06:00 Baso # 0.03 K/mm3 (0.0-2.0) 07/28/17 06:00 PT 12.1 SECONDS (9.4-12.5) 07/26/17 20:55 INR 1.06 (0.93-1.08) 07/26/17 20:55 pO2 39 mm/Hg (30-55) 07/26/17 20:55 VBG pH 7.37 (7.32-7.43) 07/26/17 20:55 VBG pCO2 51.0 (40-60) 07/26/17 20:55 VBG HCO3 29.5 mmol/l (21-28) H 07/26/17 20:55 VBG O2 Sat (Calc) 79.9 % (40-65) H 07/26/17 20:55 VBG Base Excess 3.1 mmol/L (0.0-2.0) H 07/26/17 20:55 Sodium 137 mmol/L (132-148) 07/28/17 06:00 Potassium 4.0 mmol/L (3.6-5.0) 07/28/17 06:00 Chloride 106 mmol/L (98-107) 07/28/17 06:00 Carbon Dioxide 21 mmol/L (21-33) 07/28/17 06:00 Anion Gap 14 (10-20) 07/28/17 06:00 BUN 11 mg/dL (7-21) 07/28/17 06:00 Creatinine 0.6 mg/dl (0.8-1.5) L 07/28/17 06:00 Est GFR ( Amer) > 60 07/28/17 06:00 Est GFR (Non-Af Amer) > 60 07/28/17 06:00 POC Glucose (mg/dL) 239 mg/dL (65-110) H 07/28/17 11:00 Random Glucose 191 mg/dL (70-110) H 07/28/17 06:00 Hemoglobin A1c 8.1 % (4.2-6.5) H 07/27/17 03:30 Calcium 9.4 mg/dL (8.4-10.5) 07/28/17 06:00 Phosphorus 3.2 mg/dL (2.5-4.5) 07/28/17 06:00 Magnesium 1.6 mg/dL (1.7-2.2) L 07/28/17 06:00 Total Bilirubin 0.3 mg/dL (0.2-1.3) 07/28/17 06:00 AST 23 U/L (17-59) 07/28/17 06:00 ALT 30 U/L (7-56) 07/28/17 06:00 Alkaline Phosphatase 60 U/L (38-126) 07/28/17 06:00 Total Protein 6.0 g/dL (5.8-8.3) 07/28/17 06:00 Albumin 3.4 g/dL (3.0-4.8) 07/28/17 06:00 Globulin 2.6 gm/dL 07/28/17 06:00 Albumin/Globulin Ratio 1.3 (1.1-1.8) 07/28/17 06:00 Triglycerides 161 mg/dL (35-160) H 07/27/17 03:30 Cholesterol 100 mg/dL (130-200) L 07/27/17 03:30 LDL Cholesterol Direct 31 mg/dL (0-129) 07/27/17 03:30 HDL Cholesterol 40 mg/dL (29-60) 07/27/17 03:30 Lipase 26 U/L (23-300) 07/26/17 20:55 Discharge Plan - Follow Up Plan Condition: GOOD Disposition: HOME/ ROUTINE
== END 2017-07-28 18:36 | disposition home health service (06) ==
LOC: ED 20:08 → ERH 07-27 01:04 → 2A 07-27 07:44
PROVIDERS: ADMIT Internal Medicine; ATTEND Internal Medicine
DX: E86.0 Dehydration (principal); R19.7 Diarrhea, unspecified; E11.9 Type 2 diabetes mellitus without complications; I10 Essential (primary) hypertension; M79.642 Pain in left hand; I69.354 Hemiplegia and hemiparesis following cerebral infarction affecting left non-dominant side; E78.5 Hyperlipidemia, unspecified; E87.6 Hypokalemia; D64.9 Anemia, unspecified; I25.10 Atherosclerotic heart disease of native coronary artery without angina pectoris; H54.61 Unqualified visual loss, right eye, normal vision left eye; Z79.4 Long term (current) use of insulin; Z86.011 Personal history of benign neoplasm of the brain
CPT/HCPCS: 36415; 73130; 74019; 74176; 80053; 80061; 82803; 82948; 83036; 83690; 83735; 84100; 85025; 85610; 87040; 87086; 93005; 97110; 97162; 97530; 99285; G0378; G8978; G8979; J0360; J7040; Q9966

== ENCOUNTER 2017-12-29 17:47 | Observation (INO) | payer MEDICARE, OTHER ==
[2017-12-29 17:49] VITALS: BMI 27.3
--- NOTE | 2017-12-29 18:07 | ED PDOC ---
Arrival/HPI <James Brewer - Last Filed: 12/29/17 20:45> - General Historian: Patient - History of Present Illness Time/Duration: Other (see hpi) Quality: Pressure Context: Home <King Hernandez - Last Filed: 12/29/17 21:04> - General Time Seen by Provider: 12/29/17 18:02 - History of Present Illness Narrative History of Present Illness (Text): 12/29/17 18:03 This 62 yo male with pmh benign brain tumor s/p craniotomy, HTN, Hyperlipidemia , left wrist/hand injury, wheelchair bound, presents to this ED c/o left sided CP x 7 days. Patient stated chest pain has worsen today. Patient denies other new somatic complains. 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 - Renal Hx Renal Disorder: No - Endocrine/Metabolic Hx Diabetes Mellitus Type 2: Yes - Hematological/Oncological Hx Blood Disorders: No - Integumentary Hx Dermatological Disorder: No - Musculoskeletal/Rheumatological Hx Falls: No - Gastrointestinal Hx Gastrointestinal Disorders: No Other/Comment: Incontinet of stool - Genitourinary/Gynecological Hx Genitourinary Disorders: No Hx Incontinence: Yes Other/Comment: Incontinent of urine. - Psychiatric Hx Depression: Yes Hx Substance Use: No - Surgical History Hx Tonsillectomy: Yes - Anesthesia Hx Anesthesia: Yes Hx Anesthesia Reactions: Yes (vomiting) Hx Malignant Hyperthermia: No - Suicidal Assessment Feels Threatened In Home Enviroment: No <King Hernandez - Last Filed: 12/29/17 21:04> Family/Social History - Physician Review Nursing Documentation Reviewed: Yes Family/Social History: Other (noncontributory) Smoking Status: Never Smoked Hx Alcohol Use: No Hx Substance Use: No Hx Substance Use Treatment: No <King Hernandez - Last Filed: 12/29/17 21:04> Allergies/Home Meds <James Brewer - Last Filed: 12/29/17 20:45> <King Hernandez P - Last Filed: 12/29/17 21:04> Allergies/Adverse Reactions: Allergies No Known Allergies Allergy (Verified 08/09/17 19:02) Home Medications: Home Meds Medication Instructions Recorded Confirmed Divalproex [Depakote DR] 500 mg PO BID 04/14/17 12/29/17 Levemir Flexpen 30 units SQ HS 04/14/17 12/29/17 Losartan [Cozaar] 100 mg PO DAILY 04/14/17 12/29/17 Oxcarbazepine [Trileptal] 150 mg PO DAILY 04/14/17 12/29/17 PrednisoLONE 1% [Pred Forte 1% 1 drop OU DAILY 04/14/17 12/29/17 Opht Susp] Docusate [Colace] 100 mg PO HS 06/07/17 12/29/17 Latanoprost 0.005% Opht [Xalatan 1 drop OU HS 06/07/17 12/29/17 Opht] Atorvastatin Calcium 40 mg PO DAILY 07/27/17 12/29/17 Bisacodyl [Correctol] 5 mg PO DAILY 07/27/17 12/29/17 Dorzolamide 2% [Trusopt] 1 drop OU TID 07/27/17 12/29/17 Insulin Glargine,Hum.rec.anlog 30 units SC HS 07/27/17 12/29/17 [Basaglar Kwikpen U-100] Review of Systems - Review of Systems Constitutional: Normal. absent: Fatigue, Weight Change, Fevers, Night Sweats Eyes: Normal ENT: Normal Respiratory: Normal. absent: SOB, Cough Cardiovascular: Chest Pain. absent: Palpitations, Edema, Calf Pain, CUNHA, Orthopnea, Syncope Gastrointestinal: Normal. absent: Abdominal Pain, Nausea, Vomiting Genitourinary Male: Normal. absent: Dysuria, Frequency, Hematuria Musculoskeletal: Normal Skin: Normal Neurological: Normal, Other (See hpi). absent: Headache, Dizziness, Focal Weakness, Gait Changes, Speech Changes, Facial Droop, Disequilibrium, Seizure Endocrine: Normal Hemo/Lymphatic: Normal Psychiatric: Normal <King Hernandez P - Last Filed: 12/29/17 21:04> Physical Exam Temperature: Afebrile Blood Pressure: Normal Pulse: Regular Respiratory Rate: Normal Appearance: Positive for: Well-Appearing, Non-Toxic, Comfortable Pain Distress: None Mental Status: Positive for: Alert and Oriented X 3 - Systems Exam Head: Present: Atraumatic, Normocephalic Pupils: Present: PERRL Extroacular Muscles: Present: EOMI Conjunctiva: Present: Normal Mouth: Present: Moist Mucous Membranes Neck: Present: Normal Range of Motion. No: Meningeal Signs Respiratory/Chest: Present: Clear to Auscultation, Good Air Exchange. No: Respiratory Distress, Accessory Muscle Use, Wheezes, Decreased Breath Sounds, Rales, Retracting, Rhonchi, Tachypneic, Tender to Palpation Cardiovascular: Present: Regular Rate and Rhythm, Normal S1, S2. No: Murmurs Abdomen: No: Tenderness, Distention, Peritoneal Signs Back: Present: Normal Inspection. No: CVA Tenderness, Midline Tenderness Upper Extremity: Present: NORMAL PULSES, Neurovascularly Intact, Capillary Refill < 2s, Other ((+) left UE appears mild atrophy. Left wrist/hand splint noted). No: Cyanosis, Edema, Tenderness, Swelling, Erythema, Temperature Abnormalties Lower Extremity: Present: Normal Inspection, NORMAL PULSES, Neurovascularly Intact, Capillary Refill < 2 s, Other ((+) b/l lower leg stiffness noted. Patient on wheelchair since last year). No: Edema, CALF TENDERNESS, Tenderness , Swelling, Erythema, Deformity, Temperature Abnormalties Neurological: Present: GCS=15, CN II-XII Intact, Speech Normal, Memory Normal Skin: Present: Warm, Dry, Normal Color. No: Rashes Psychiatric: Present: Alert, Oriented x 3, Normal Insight, Normal Concentration <King Hernandez - Last Filed: 12/29/17 21:04> Vital Signs Temp Pulse Resp BP Pulse Ox 12/29/17 17:48 98.6 F 91 H 18 153/89 H 97 Medical Decision Making <James Brewer - Last Filed: 12/29/17 20:45> Re-evaluation Time: 20:52 Reassessment Condition: Re-examined, Improving,but remains with symptoms - Lab Interpretations I have reviewed the lab results: Yes Interpretation: No sign. chg./baseline - EKG Interpretation Interpreted by ED Physician: Yes (NSR @ [address] changes) Type: 12 lead EKG Comparison: Similar to previous EKG <King Hernandez - Last Filed: 12/29/17 21:04> ED Course and Treatment: 12/29/17 20:[address] Naylor regarding patient came with CP, EKG was negative, CXR is NAD, and labs no significant changes. Dr. naylor agreed with plan for observation. Patient agreed with plan. (King Hernandez) - Lab Interpretations Lab Results: 12/29/17 18:26 12/29/17 18:26 Lab Results 12/29/17 18:26: Sodium 145, Potassium 3.5 L, Chloride 104, Carbon Dioxide 27, Anion Gap 18, BUN 22 H, Creatinine 0.6 L, Est GFR ( Amer) > 60, Est GFR ( Non-Af Amer) > 60, Random Glucose 170 H, Calcium 9.1, Magnesium 1.7, Total Bilirubin 0.4, AST 34, ALT 21, Alkaline Phosphatase 57, Lactate Dehydrogenase 389, Total Creatine Kinase 47, Troponin I < 0.01, NT-Pro-B Natriuret Pep 58.5, Total Protein 6.7, Albumin 3.9, Globulin 2.7, Albumin/Globulin Ratio 1.4 12/29/17 18:26: Urine Color Yellow, Urine Appearance Clear, Urine pH 6.0, Ur Specific [place] >= 1.030, Urine Protein 30 H, Urine Glucose (UA) Negative, Urine Ketones 15 H, Urine Blood Trace-intact H, Urine Nitrate Negative, Urine Bilirubin Negative, Urine Urobilinogen 1.0 H, Ur Leukocyte Esterase Negative, Urine RBC Negative, Urine WBC 2 - 5, Ur Epithelial Cells 3 - 4, Urine Bacteria Few 12/29/17 18:26: PT 10.8, INR 0.95, APTT 28.2, D-Dimer, Quantitative 226 12/29/17 18:26: WBC 3.6 L D, RBC 3.85, Hgb 11.2 L, Hct 32.5 L, MCV 84.4, MCH 29.1, MCHC 34.5, RDW 14.0, Plt Count 159, MPV 9.5, Gran % 41.9 L, Lymph % (Auto ) 46.7 H, Tillman % (Auto) 6.4 H, Eos % (Auto) 4.4, Baso % (Auto) 0.6, Gran # 1.52 , Lymph # (Auto) 1.7, Tillman # (Auto) 0.2, Eos # (Auto) 0.2, Baso # (Auto) 0.02 - RAD Interpretation Narrative RAD Interpretations (Text): 12/29/17 20:40 CXR: NAD (King Hernandez) Radiology Orders: 12/29/17 18:13 CHEST PORTABLE [RAD] Stat - PA / AUTOMATION TESTER / Resident Statement / has reviewed & agrees with the documentation as recorded. / has examined the patient and agrees with the treatment plan. <James Brewer - Last Filed: 12/29/17 20:45> Disposition/Present on Arrival <James Brewer - Last Filed: 12/29/17 20:45> - Present on Arrival Any Indicators Present on Arrival: No History of DVT/PE: No History of Uncontrolled Diabetes: No Urinary Catheter: No History Surgical Site Infection Following: None - Disposition Have Diagnosis and Disposition been Completed?: Yes Disposition Time: 21:03 Patient Plan: Observation <King Hernandez - Last Filed: 12/29/17 21:04> - Disposition Diagnosis: Chest pain Disposition: HOSPITALIZED Condition: STABLE Discharge Instructions (ExitCare): Chest Pain (ED) Referrals: Carmelo Naylor DO [Family Provider] - Follow up with primary
[2017-12-29 19:19] LABS: BASO # 0.02 K/mm3 (0.0-2.0); BASO % 0.6 % (0.0-3.0); EOS # 0.2 (0.0-0.7); EOS % 4.4 % (1.5-5.0); GRAN # 1.52 (1.4-6.5); GRAN % 41.9 % (50.0-68.0); HEMOGLOBIN 11.2 g/dL (14.0-18.0); INR 0.95 (0.93-1.08); LYMPH # 1.7 (1.2-3.4); LYMPH % 46.7 % (22.0-35.0); MEAN CELL VOLUME 84.4 fl (80.0-105.0); MEAN CORPUSCULAR HEMOGLOBIN 29.1 pg (25.0-35.0); MEAN CORPUSCULAR HGB CONC 34.5 g/dl (31.0-37.0); MEAN PLATELET VOLUME 9.5 fl (7.0-11.0); MONO # 0.2 (0.1-0.6); MONO % 6.4 % (1.0-6.0); PARTIAL THROMBOPLASTIN TIME 28.2 Seconds (25.1-36.5); PROTHROMBIN TIME 10.8 SECONDS (9.4-12.5); RBC 3.85 10^6/uL (3.5-6.1); URINE BILIRUBIN NEGATIVE (NEGATIVE); URINE BLOOD TRACE-INTACT (NEGATIVE); URINE GLUCOSE (UA) NEGATIVE (NEGATIVE); URINE LEUKOCYTE ESTERASE NEGATIVE Leu/uL (NEGATIVE); URINE PROTEIN 30 mg/dL (<30 mg/dL); WHITE BLOOD COUNT 3.6 10^3/ul (4.5-11.0)
[2017-12-29 19:20] LABS: ALB/GLOB RATIO 1.4 (1.1-1.8); ALBUMIN 3.9 g/dL (3.0-4.8); ALT/SGPT 21 U/L (7-56); AST/SGOT 34 U/L (17-59); BLOOD UREA NITROGEN 22 mg/dL (7-21); CALCIUM 9.1 mg/dL (8.4-10.5); GFR AFRICAN-AMERICAN > 60; GFR NON-AFRICAN AMERICAN > 60
[2017-12-29 19:22] LABS: URINE APPEARANCE CLEAR (CLEAR); URINE COLOR YELLOW (YELLOW)
[2017-12-29 19:29] LABS: URINE RBC NEGATIVE /hpf (0-2)
[2017-12-29 19:30] LABS: URINE BACTERIA FEW (NEG)
[2017-12-29 19:37] LABS: B-TYPE NATRIURETIC PEPTIDE 58.5 pg/mL (0-450); TROPONIN I < 0.01 ng/mL
[2017-12-29] MEDS ORDERED: Latanoprost 2.5 ml Opht Soln OU SCH (22:00)
[2017-12-29] MEDS ORDERED: [UNRECOGNIZED DRUG - OTHER] SC SCH (22:00)
[2017-12-29] MEDS ORDERED: INSULIN GLARGINE HUM REC ANLOG 30 UNIT SC SCH (22:00)
[2017-12-29] MEDS ORDERED: Insulin Detemir 100 units/ml Vial (Levemir) SC SCH (22:30)
[2017-12-30 02:46] LABS: TROPONIN I < 0.01 ng/mL
[2017-12-30 03:21] VITALS: RESP 18; O2SAT 99
[2017-12-30 06:23] LABS: BASO # 0.01 K/mm3 (0.0-2.0); BASO % 0.3 % (0.0-3.0); EOS # 0.1 (0.0-0.7); EOS % 3.8 % (1.5-5.0); GRAN # 1.16 (1.4-6.5); GRAN % 36.6 % (50.0-68.0); HEMOGLOBIN 10.7 g/dL (14.0-18.0); LYMPH # 1.6 (1.2-3.4); LYMPH % 50.5 % (22.0-35.0); MEAN CELL VOLUME 84.5 fl (80.0-105.0); MEAN CORPUSCULAR HEMOGLOBIN 28.7 pg (25.0-35.0); MEAN PLATELET VOLUME 9.5 fl (7.0-11.0); MONO # 0.3 (0.1-0.6); MONO % 8.8 % (1.0-6.0); RBC 3.73 10^6/uL (3.5-6.1); WHITE BLOOD COUNT 3.2 10^3/ul (4.5-11.0)
[2017-12-30 07:21] LABS: ALB/GLOB RATIO 1.4 (1.1-1.8); ALBUMIN 3.7 g/dL (3.0-4.8); ALT/SGPT 11 U/L (7-56); AST/SGOT 24 U/L (17-59); BLOOD UREA NITROGEN 21 mg/dL (7-21); CALCIUM 9.2 mg/dL (8.4-10.5); GFR AFRICAN-AMERICAN > 60; GFR NON-AFRICAN AMERICAN > 60
--- NOTE | 2017-12-30 08:42 | RAD ---
HISTORY: chest pain COMPARISON: 04/13/2017 FINDINGS: LUNGS: No active pulmonary disease. PLEURA: No significant pleural effusion identified, no pneumothorax apparent. CARDIOVASCULAR: Normal. OSSEOUS STRUCTURES: No significant abnormalities. VISUALIZED UPPER ABDOMEN: Normal. OTHER FINDINGS: None. IMPRESSION: No active disease.
[2017-12-30 08:44] VITALS: BP 164/94; TEMP 98.1
[2017-12-30] MEDS ORDERED: Bisacodyl 5mg EC Tab PO SCH (10:00)
[2017-12-30] MEDS ORDERED: Dorzolamide 2% Opht Sol 10ml OU SCH (10:00)
[2017-12-30] MEDS ORDERED: PrednisoLONE 1% Opht Susp(5 ml) OU SCH (10:00)
[2017-12-30] MEDS ORDERED: Multivitamin Therapeutic Tab PO SCH (10:00)
[2017-12-30] MEDS ORDERED: Divalproex 500 mg DR(BID formulation) PO SCH (10:00)
[2017-12-30 10:37] LABS: TROPONIN I < 0.01 ng/mL
[2017-12-30 14:32] VITALS: PULSE 80
--- NOTE | 2017-12-30 15:26 | CON ---
DATE: 12/30/2017 CARDIOLOGY CONSULTATION HISTORY: The patient is a 62-year-old male, who presents with transient chest pain, which is now resolved. Description is very atypical. This was precipitated after he was told that is being evicted from his apartment from 01/02/2018. The patient's past medical history includes a CVA in the past. His last cardiac workup was in 2014 where an echocardiogram was found to have normal LV function. The patient is currently chest pain free. There is a question of hypertension. SOCIAL HISTORY: The patient does not smoke. REVIEW OF SYSTEMS: Free of previous cardiac history as well as no cardiac symptomatology. PHYSICAL EXAMINATION: VITAL SIGNS: Stable. NECK: Negative JVD. LUNGS: Without rales. HEART: Reveals S1, S2. EXTREMITIES: Without edema. LABORATORY DATA: Hemoglobin is mildly depressed. Troponins are negative x2. EKG is unremarkable. IMPRESSION: 1. Atypical chest pain. 2. No evidence for acute coronary syndrome. 3. History of cerebrovascular accident in the past. 4. The patient's symptomatology is related to his living circumstances. PLAN: Given these findings, there is no evidence for acute coronary syndrome. We will discontinue telemetry today. We will continue his present medications. Benjamín Montiel MD
[2017-12-30] MEDS ORDERED: [UNRECOGNIZED DRUG - OTHER] SC SCH (22:00)
[2017-12-30] MEDS ORDERED: INSULIN GLARGINE HUM REC ANLOG 30 UNIT SC SCH (22:00)
--- NOTE | 2017-12-30 22:26 | CARD ---
APPROVED REPORT EKG Measurement Heart [id number] <Conclusion> Normal sinus rhythm Normal ECG
--- NOTE | 2017-12-31 04:43 | HP ---
HISTORY OF PRESENT ILLNESS: I know Abdullahi very well from house calls. I have been seeing him for a while now. He comes in with a chest pain. He is a 62-year-old man with a history of brain tumor, status post craniotomy, hypertension, high cholesterol, left wrist and hand injury. He is wheelchair-bound. Briefly, he is on hospital bed. He has left-sided chest pain almost for 7 days. It got worse, so I called them in, could be somatic. Right now this morning, he does not have any chest pain. He has hypertension, seizure disorder. He is blind in the right eye. He had a right eye retinal problem, diabetes, incontinent of stool, incontinent of urine. He has been depressed. Tonsillectomy, craniotomy. SOCIAL HISTORY: Never smoked. No alcohol. No drugs. ALLERGIES: NO KNOWN DRUG ALLERGIES. MEDICATIONS: He is on Depakote, FlexPen, Cozaar, Trileptal, prednisolone eyedrops, Colace, Xalatan, calcium, bisacodyl, Trusopt, insulin. REVIEW OF SYSTEMS: No fever. No night sweats. No weight change. No fatigue. No change in his vision, although he has poor vision with no acute changes. No acute hearing changes. No sore throat. No shortness of breath or cough. He has chest pain. No palpitations. No dyspnea on exertion, does not do much. No abdominal pain, nausea, vomiting, constipation, or diarrhea. No problems with urination, he is incontinent. No skin issues that he knows of. He has poor turgor. There is no headache, no dizziness, no focal weakness except for his chronic stuff, nothing new. Not anxious. PHYSICAL EXAMINATION: VITAL SIGNS: He has a 98.6 temperature, 91 pulse, 18 respiratory rate, 153/89 blood pressure, 97% O2 sat on room air. HEENT: Head is atraumatic, normocephalic. Extraocular muscles are intact. Pupils are equal and reactive to light. Throat is moist. NECK: Supple. HEART: Regular rate. Normal S1, S2. LUNGS: Decreased breath sounds bilaterally with poor inhalation, but no wheezes, rhonchi, or rales. ABDOMEN: Soft, nontender. Positive bowel sounds. No CVA tenderness. EXTREMITIES: He has left wrist and hand splint. Left upper extremity has some atrophy and weakness. Bilateral lower extremity stiffness. No edema. NEUROLOGIC: GCS is 15. Cranial nerves II through XII grossly intact. Alert and oriented x3. SKIN: Warm and dry. No apparent rashes or ulcers. He is here with a chest pain. He had multiple tests done. He has a urine which is okay. He has a 145 sodium; potassium was 3.5, now is 3.4, K rider. BUN was 22 and creatinine 0.6, now is 21 and 0.6. GFR is greater than 60. Sugar is 91. Calcium is 9.2. Total bili is 0.1, AST is 24, ALT is 11, alk phos 49. The troponin's are less than 0.01. Total protein 6.4. His INR is 0.95. His D-dimer is 226, normal. His white count 3.2, hemoglobin 10.7, hematocrit 31.5, and platelets are 152. He has a consult with Cardiology, Dr. Montiel. His troponin's are negative. He is here in observation status. Now, he throws me a monkey wrench that his family is getting evicted from the home. He has got no place to go. I will get secondary social studies teacher involved for this and I am trying to discharge him later today home if it is okay with Dr. Montiel unless he wants to do any procedures. I will discuss with secondary social studies teacher and case management. He is here for chest pain. Carmelo Naylor DO MTDD
== END 2017-12-30 14:43 | disposition home or self-care (01) ==
LOC: ED 17:47 → ERH 20:44 → 3RNO 21:44
PROVIDERS: ADMIT Family Medicine; ATTEND Family Medicine
DX: R07.89 Other chest pain (principal); I10 Essential (primary) hypertension; E78.00 Pure hypercholesterolemia, unspecified; G40.909 Epilepsy, unspecified, not intractable, without status epilepticus; E11.9 Type 2 diabetes mellitus without complications; H54.61 Unqualified visual loss, right eye, normal vision left eye; E78.5 Hyperlipidemia, unspecified; Z99.3 Dependence on wheelchair; Z79.4 Long term (current) use of insulin; Z86.73 Personal history of transient ischemic attack (TIA), and cerebral infarction without residual deficits; Z86.011 Personal history of benign neoplasm of the brain
CPT/HCPCS: 36415; 71045; 80053; 81001; 82550; 82948; 83615; 83735; 83880; 84484; 85025; 85378; 85610; 85730; 93005; 97162; 97530; 99285; G0378; G8978; G8979; G8980; J3480

== ENCOUNTER 2018-08-27 06:45 | Observation (INO) | payer MEDICARE ==
[2018-08-27] MEDS ORDERED: Sodium Chloride 0.9% 1,000 ML IV STA (07:23)
--- NOTE | 2018-08-27 07:29 | ED PDOC ---
Arrival/HPI - General Historian: Patient - History of Present Illness Narrative History of Present Illness (Text): 08/27/18 07:29 63 y/o male with PMH of HTN, HLD, CVA with residual Lt sided weakness, seizure, benign brain tumor s/p resection, cholelithiasis presents to the ED from home with one episode of non bloody vomiting last night. It's associated with nausea, epigastric pain. Patient denied associated fever, chills, hemetemesis, heamtochezia, melena, diarrhea, constipation. He reports being in his normal state of health prior to that and denied eating unusual food, no alcohol, no NSAID use. Patient denied CP, SOB, palpitations, headache, urinary symptoms, new onset muscle weakness/loss of sensation. Patient is bed-bound and lives at home with family. 08/27/18 07:37 Time/Duration: 24 hours Symptom Course: Resolved Quality: Cramping Context: Home <Parag Linder - Last Filed: 08/27/18 07:39> <Hector Abebe - Last Filed: 08/27/18 09:35> - General Chief Complaint: GI Problem Time Seen by Provider: 08/27/18 06:55 Past Medical History - Provider Review Nursing Documentation Reviewed: Yes - Infectious Disease Hx of Infectious Diseases: None - Tetanus Immunization Tetanus Immunization: Unknown - Cardiac Hx Hypertension: Yes - Pulmonary Hx Respiratory Disorders: No - Neurological HX Cerebrovascular Accident: Yes - HEENT Hx HEENT Disorder: Yes (right eye blind) - Renal Hx Renal Disorder: No - Endocrine/Metabolic Hx Endocrine Disorders: Yes Hx Diabetes Mellitus Type 2: Yes - Hematological/Oncological Hx Blood Disorders: No Hx Cancer: No - Integumentary Hx Dermatological Disorder: No - Musculoskeletal/Rheumatological Hx Arthritis: Yes (BACK) Hx Falls: No Hx Unsteady Gait: Yes (left side weak) - Gastrointestinal Hx Gastrointestinal Disorders: No HX Swallowing Problems: No - Genitourinary/Gynecological Hx Genitourinary Disorders: Yes Hx Incontinence: Yes Hx Sexually Transmitted Diseases: No - Psychiatric Hx Anxiety: Yes Hx Depression: Yes Hx Physical Abuse: No Hx Sexual Abuse: No Hx Substance Use: No - Surgical History Hx Tonsillectomy: Yes Hx Vascular Surgery: Yes (right brain) - Anesthesia Hx Anesthesia: Yes Hx Anesthesia Reactions: Yes (vomiting) Hx Malignant Hyperthermia: No - Suicidal Assessment Feels Threatened In Home Enviroment: No <KailashParag - Last Filed: 08/27/18 07:39> Family/Social History - Physician Review Nursing Documentation Reviewed: Yes Family/Social History: No Known Family HX Smoking Status: Never Smoked Hx Alcohol Use: No Hx Substance Use: No Hx Substance Use Treatment: No <Parag Linder - Last Filed: 08/27/18 07:39> Allergies/Home Meds <Parag Linder - Last Filed: 08/27/18 07:39> <Hector Abebe - Last Filed: 08/27/18 09:35> Allergies/Adverse Reactions: Allergies No Known Allergies Allergy (Verified 03/08/18 21:12) Home Medications: Home Meds Medication Instructions Recorded Confirmed Divalproex [Depakote DR] 500 mg PO BID 04/14/17 12/29/17 Losartan [Cozaar] 100 mg PO DAILY 04/14/17 12/29/17 Docusate [Colace] 100 mg PO HS 06/07/17 12/29/17 Latanoprost 0.005% Opht [Xalatan 1 drop OU HS 06/07/17 12/29/17 Opht] Dorzolamide 2% [Trusopt] 1 drop OU TID 07/27/17 12/29/17 Review of Systems - Physician Review All systems were reviewed & negative as marked: Yes - Review of Systems Constitutional: Normal. absent: Weight Change, Fevers, Night Sweats Eyes: Normal ENT: Normal Respiratory: Normal. absent: SOB, Cough, Wheezing Cardiovascular: absent: Chest Pain, Palpitations, Edema Gastrointestinal: Abdominal Pain, Nausea, Vomiting. absent: Diarrhea, Hematochezia, Hematemesis Musculoskeletal: Normal Skin: Rash Neurological: Focal Weakness (s/p CVA). absent: Headache, Speech Changes Endocrine: Normal Hemo/Lymphatic: Normal Psychiatric: Normal <Parag Linder - Last Filed: 08/27/18 07:39> Physical Exam Vital Signs Reviewed: Yes Vital Signs Temp Pulse Resp BP Pulse Ox 08/27/18 07:10 98.9 F 103 H 18 172/98 H 95 Temperature: Afebrile Blood Pressure: Hypertensive Pulse: Tachycardic Respiratory Rate: Normal Appearance: Positive for: Well-Appearing, Non-Toxic, Comfortable Pain Distress: None Mental Status: Positive for: Alert and Oriented X 3 - Systems Exam Head: Present: Atraumatic, Normocephalic Pupils: Present: PERRL Extroacular Muscles: Present: EOMI Conjunctiva: Present: Normal Mouth: Present: Moist Mucous Membranes Pharnyx: Present: Normal Nose (External): Present: Atraumatic Neck: Present: Normal Range of Motion Respiratory/Chest: Present: Clear to Auscultation, Good Air Exchange. No: Respiratory Distress, Wheezes, Rhonchi Cardiovascular: Present: Regular Rate and Rhythm, Normal S1, S2. No: Rub, Gallop Abdomen: Present: Normal Bowel Sounds. No: Tenderness, Peritoneal Signs, Rebound, Guarding, Mass/Organomegaly Back: Present: Decubitus Ulcer. No: CVA Tenderness Lower Extremity: Present: Normal Inspection. No: Edema Neurological: Present: GCS=15, CN II-XII Intact Skin: Present: Warm, Dry, Rashes Lymphatic: No: Cervical Adenopathy, Axillary Adenopathy Psychiatric: Present: Alert, Oriented x 3 <Parag Linder - Last Filed: 08/27/18 07:39> Vital Signs Temp Pulse Resp BP Pulse Ox 08/27/18 07:10 98.9 F 103 H 18 172/98 H 95 <Hector Abebe - Last Filed: 08/27/18 09:35> Medical Decision Making ED Course and Treatment: 08/27/18 08:18 Seen and examined with the resident. Our history and physical exam reveals a gentleman with abdominal pain nausea vomiting and loose stool since last night. On exam his abdomen is soft and nontender with no guarding and no rebound. 08/27/18 09:28 Impression: 63 year old male who presents to the emergency department complaining of abdominal pain, nausea, and vomiting. Patient Seen with Resident: In agreement with resident note which contains more details about the patient. Patient seen and evaluated with resident. Came up with plan and treatment renny baker. - Lab Interpretations Lab Results: Total Bilirubin 0.3 mg/dL (0.2-1.3) 08/27/18 07:06 AST 21 U/L (17-59) 08/27/18 07:06 ALT 14 U/L (7-56) 08/27/18 07:06 Alkaline Phosphatase 68 U/L (38-126) 08/27/18 07:06 Total Protein 6.8 g/dL (5.8-8.3) 08/27/18 07:06 Albumin 4.2 g/dL (3.0-4.8) 08/27/18 07:06 Globulin 2.7 gm/dL 08/27/18 07:06 Albumin/Globulin Ratio 1.6 (1.1-1.8) 08/27/18 07:06 Lipase 19 U/L (23-300) L 08/27/18 07:06 - RAD Interpretation Narrative RAD Interpretations (Text): 08/27/18 09:33 Abdominal Ultrasound reviewed by radiologist, shows: Impression: Fatty liver. Cholelithiasis Radiology Orders: 08/27/18 07:23 ABDOMEN COMPLETE [US] Stat Asset Card Clerk: Radiologist - Medication Orders Current Medication Orders: Sodium Chloride (Sodium Chloride 0.9%) 1,000 mls @ 100 mls/hr IV .Q10H IGNACIA Discontinued Medications Ondansetron HCl (Zofran Inj) 4 mg IVP STAT STA Stop: 08/27/18 07:24 Pantoprazole Sodium (Protonix Inj) 40 mg IVP STAT STA Stop: 08/27/18 07:24 <Hector Abebe - Last Filed: 08/27/18 09:35> - Scribe Statement The provider has reviewed the documentation as recorded by the Lukas Young Provider Scribe Attestation: All medical record entries made by the Scribe were at my direction and personally dictated by me. I have reviewed the chart and agree that the record accurately reflects my personal performance of the history, physical exam, medical decision making, and the department course for this patient. I have also personally directed, reviewed, and agree with the discharge instructions and disposition. <Hector Abebe - Last Filed: 08/27/18 09:35> Disposition/Present on Arrival - Present on Arrival Any Indicators Present on Arrival: No History of DVT/PE: No History of Uncontrolled Diabetes: Yes Urinary Catheter: No History of Decub. Ulcer: Yes History Surgical Site Infection Following: None <Parag Linder - Last Filed: 08/27/18 07:39> - Present on Arrival Any Indicators Present on Arrival: No History of DVT/PE: No History of Uncontrolled Diabetes: Yes Urinary Catheter: No History of Decub. Ulcer: Yes - Disposition Have Diagnosis and Disposition been Completed?: Yes Disposition Time: 09:04 Patient Plan: Observation <Hector Abebe - Last Filed: 08/27/18 09:35> - Disposition Diagnosis: Abdominal pain, Nausea & vomiting, Gastroenteritis, Diarrhea, Cholelithiasis Disposition: HOSPITALIZED Patient Problems: Current Active Problems Problem Status Onset Abdominal pain Acute Cholelithiasis Acute Diarrhea Acute Gastroenteritis Acute Nausea & vomiting Acute Condition: IMPROVED
[2018-08-27] MEDS ORDERED: Sodium Chloride 0.9% 1,000 ML IV SCH ×2 (07:45→11:16)
[2018-08-27 07:58] LABS: BASO # 0.02 K/mm3 (0.0-2.0); BASO % 0.3 % (0.0-3.0); EOS # 0.1 (0.0-0.7); EOS % 1.5 % (1.5-5.0); HEMOGLOBIN 11.2 g/dL (14.0-18.0); LYMPH # 1.2 (1.2-3.4); LYMPH % 17.8 % (22.0-35.0); MEAN CELL VOLUME 91.9 fl (80.0-105.0); MEAN CORPUSCULAR HEMOGLOBIN 30.1 pg (25.0-35.0); MEAN CORPUSCULAR HGB CONC 32.7 g/dl (31.0-37.0); MEAN PLATELET VOLUME 10.1 fl (7.0-11.0); MONO # 0.4 (0.1-0.6); RBC 3.72 10^6/uL (3.5-6.1); RED CELL DISTRIBUTION WIDTH 14.4 % (11.5-14.5); WHITE BLOOD COUNT 6.5 10^3/uL (4.5-11.0)
[2018-08-27 08:10] LABS: ALB/GLOB RATIO 1.6 (1.1-1.8); ALBUMIN 4.2 g/dL (3.0-4.8); ALT/SGPT 14 U/L (7-56); AST/SGOT 21 U/L (17-59); BLOOD UREA NITROGEN 19 mg/dL (7-21); CALCIUM 9.4 mg/dL (8.4-10.5); GFR NON-AFRICAN AMERICAN > 60; LIPASE 19 U/L (23-300)
--- NOTE | 2018-08-27 08:35 | US ---
Date of service: 08/27/2018 HISTORY: epigastric pain COMPARISON: None. TECHNIQUE: Sonographic evaluation of the abdomen. FINDINGS: LIVER: Measures 15.9 cm. There is diffuse increased echogenicity of the liver parenchyma. No mass. No intrahepatic bile duct dilatation. GALLBLADDER: There are multiple gallstones. There is no wall thickening or pericholecystic fluid. The sonographic Laguna's sign is negative. COMMON BILE DUCT: Measures mm. No stones. No dilatation. PANCREAS: Obscured by bowel gas. RIGHT KIDNEY: Measures 10.6cm. Normal echogenicity. No calculus, mass, or hydronephrosis. LEFT KIDNEY: Measures 9.9cm. Normal echogenicity. No calculus, mass, or hydronephrosis. SPLEEN: Normal in size and contour. No mass. AORTA: No aneurysmal dilatation. IVC: Unremarkable. OTHER FINDINGS: None. IMPRESSION: Fatty liver. Cholelithiasis.
--- NOTE | 2018-08-27 10:48 | CARD ---
APPROVED REPORT Date of service: 08/27/2018 EKG Measurement Heart [id number] 130P30 [id number] <Conclusion> Sinus tachycardia Possible Left atrial enlargement Borderline ECG
[2018-08-27] MEDS: Insulin Reg-HIGH-Coverage SC SCH ×3 (12:55→21:25)
[2018-08-27] MEDS: Dorzolamide 2% Opht Sol 10ml OU SCH ×2 (13:47→17:46)
[2018-08-27 15:38] VITALS: BMI 23.5
[2018-08-27] MEDS ORDERED: Influenza Vaccine 60 mcg/0.5 mL SYR (4YR UP) IM ONE (15:39)
[2018-08-27] MEDS ORDERED: Pneumococcal 23-Valent Vaccine IM ONE (15:39)
[2018-08-27] MEDS: Divalproex 500 mg DR(BID formulation) PO SCH (17:54)
[2018-08-27] MEDS ORDERED: Latanoprost 2.5 ml Opht Soln OU SCH (22:00)
--- NOTE | 2018-08-27 23:00 | HP ---
DATE OF EXAM: 08/27/2018 HISTORY OF PRESENT ILLNESS: This is a 63-year-old white male, I know very well from house calls. He presents with nonbloody vomitus last night, some nauseousness, epigastric pain, fevers, chills, not feeling well. He reports being in normal state of health, otherwise. He was eating before this happened. He has a past medical history of hypertension, high cholesterol, CVA with residual left-sided weakness, seizures, benign brain tumor status post resection, cholelithiasis. Right eye is blind. He has diabetes. He has arthritis in his back. He has left-sided weakness from the stroke. He is incontinent of urine. He is anxious, depressed. He had right brain surgery. He does have vomiting from anesthesia. He had nausea and vomiting earlier. FAMILY HISTORY: He has no known family history. SOCIAL HISTORY: He has never smoked. No drinking, no drugs. ALLERGIES: NO KNOWN DRUG ALLERGIES. MEDICATIONS: He is on Depakote, Cozaar, Colace multiple medicines for his diabetes and blood pressure. REVIEW OF SYSTEMS. He has nausea, vomiting, abdominal pain. No weight change. No fevers or night sweats. No shortness of breath or cough or wheezing. No chest pain or palpitations. He has back pain, which is on and off. He does have a rash that comes and goes. He has left-sided weakness secondary to CVA. PHYSICAL EXAMINATION: GENERAL: Pleasant, not anxious at this time. VITAL SIGNS: He has 98.9 temperature, 103 pulse, 18 respiratory rate, 172/98 blood pressure, 95% O2 sat. He is going to get his blood pressure pills back. He did not take them this morning. NECK: Thyroid midline. No palpable appreciable cervical lymphadenopathy. Neck is supple. HEENT: Head is atraumatic, normocephalic. Extraocular muscles are intact. Throat is moist. HEART: Regular rate. Normal S1, S2. LUNGS: Decreased breath sounds, but clear to auscultation. No wheezing, no rhonchi, no rales. ABDOMEN: Soft, nontender. Positive bowel sounds. No guarding, no rebound, no CVA tenderness. NEUROLOGIC: He is alert and comfortable at this time. GCS is 15. Cranial nerves II-XII grossly intact with left-sided weakness. EXTREMITIES: No edema of the extremities. Left-sided weakness. SKIN: Warm and dry. LABORATORY DATA: He had multiple tests done. He has 138 sodium, potassium 4.3, BUN is 90, creatinine 0.7, GFR is greater than 60, sugar is 158, calcium 9.4, phosphorus 3.9, magnesium 1.6, total bili is 0.3. AST is 21, ALT is 14 and phos 68. Troponin I is less than 0.01. Total protein 6.8. Lipase is less than 19. White count 6.5, hemoglobin 11.2, hematocrit 34.2, and platelets 208. He has had an ultrasound of the abdomen and pelvis, shows a fatty liver and cholelithiasis. He had an electrocardiogram; sinus tachycardia, possible left atrial enlargement. He is on observation level of care, on IV fluids. We put back on his medications. He will have a GI consult. He is currently on a liquid diet. We will check his blood sugars, and he is here for likely viral gastroenteritis. No nausea or vomiting. Hopefully, this will pass and he will begin to improve, and we will hopefully get him out in 24 hours. Carmelo Naylor DO [facility]
[2018-08-28 07:21] LABS: HEMOGLOBIN 10.1 g/dL (14.0-18.0); MEAN CELL VOLUME 90.7 fl (80.0-105.0); MEAN CORPUSCULAR HEMOGLOBIN 30.3 pg (25.0-35.0); MEAN CORPUSCULAR HGB CONC 33.4 g/dl (31.0-37.0); MEAN PLATELET VOLUME 9.7 fl (7.0-11.0); RBC 3.33 10^6/uL (3.5-6.1); RED CELL DISTRIBUTION WIDTH 14.3 % (11.5-14.5); WHITE BLOOD COUNT 5.4 10^3/uL (4.5-11.0)
[2018-08-28 07:55] LABS: ALB/GLOB RATIO 1.4 (1.1-1.8); ALBUMIN 3.5 g/dL (3.0-4.8); ALT/SGPT 10 U/L (7-56); AST/SGOT 16 U/L (17-59); BLOOD UREA NITROGEN 13 mg/dL (7-21); CALCIUM 9.4 mg/dL (8.4-10.5); GFR NON-AFRICAN AMERICAN > 60
[2018-08-28] MEDS: Insulin Reg-HIGH-Coverage SC SCH ×3 (08:21→17:11)
--- NOTE | 2018-08-28 09:13 | CP.PCM.CON ---
<James Onofre - Last Filed: 08/28/18 09:15> History of Present Illness - History of Present Illness History of Present Illness: PGY6 GI Fellow Consult Note Patient is a 63yo male with PMHx significant for brain tumor s/p resection in 2009, 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, HTN, dyslipidemia, seizure disorder who presented to the ED with nausea/vomiting. According to the patient he had epi sodes of nausea and nonbloody emesis/regurgitation following meals for 1-2 days. He admitted to mild epigastric pain following episodes. Since admission, the patient has not been witnessed to have any episodes and has tolerated a liquid diet for 24 hours without any issue. Denies abdominal pain presently as well as fever, chills, diarrhea, constipation, hematochezia, melena. Patient is bed- bound and lives at home with family. 12 system ROS performed and negative except where stated PMHx: See HPI PSHx: Right frontal craniotomy, tonsilectomy, unknown right eye procedure FHx: Diabetes Social: Denies tobacco, EtOH or illicit drug use Endo: No prior endoscopic evaluations per patient and EMR Past Patient History - Infectious Disease Hx of Infectious Diseases: None - Tetanus Immunizations Tetanus Immunization: Unknown - Past Medical History & Family History Past Medical History?: Yes - Past Social History Smoking Status: Never Smoked - CARDIAC Hx Cardiac Disorders: Yes Hx Hypercholesterolemia: Yes Hx Hypertension: Yes Hx Peripheral Edema: Yes (left hand +2 swollen/contracted) - PULMONARY Hx Respiratory Disorders: No - NEUROLOGICAL Hx Neurological Disorder: Yes HX Cerebrovascular Accident: Yes (2017 left side weakness) Hx Seizures: Yes Hx Transient Ischemic Attacks (TIA): Yes Other/Comment: r frontal craniotomy benign brain tumor 2009, speech impediment - HEENT Hx HEENT Problems: Yes (right eye blind, retinal problem) Other/Comment: unknown r eye procedure, speech impediment - RENAL Hx Chronic Kidney Disease: No - ENDOCRINE/METABOLIC Hx Endocrine Disorders: Yes Hx Diabetes Mellitus Type 2: Yes - HEMATOLOGICAL/ONCOLOGICAL Hx Blood Disorders: No - INTEGUMENTARY Hx Dermatological Problems: Yes Other/Comment: stage 2 pressure ulcer 1cm x 1.2cm wound bed red surounded by pink skin, left shoulder mole, dry flakey skin ble and b/l feet, discolored brown skin rle, thick dry toenails both feet, dry skin both arms - MUSCULOSKELETAL/RHEUMATOLOGICAL Hx Musculoskeletal Disorders: Yes Hx Arthritis: Yes (BACK) Hx Falls: No Hx Unsteady Gait: Yes (left side weak) Other/Comment: bedridden, left hand contracted, unable to straighten fingers, swelling decreased rom, hammertoes b/l feet - GASTROINTESTINAL Hx Gastrointestinal Disorders: Yes Hx Gall Bladder Disease: Yes (gallstones) - GENITOURINARY/GYNECOLOGICAL Hx Genitourinary Disorders: Yes Hx Incontinence: Yes (urine and stool) Hx Sexually Transmitted Disorders: No - PSYCHIATRIC Hx Psychophysiologic Disorder: Yes (suicidal ideation) Hx Anxiety: Yes Hx Depression: Yes Hx Physical Abuse: No Hx Sexual Abuse: No Hx Substance Use: No - SURGICAL HISTORY Hx Surgeries: Yes Other/Comment: tonsillectomy, r frontal craniotomy benign brain tumor 2009, unknown r eye procedure - ANESTHESIA Hx Anesthesia: Yes Hx Anesthesia Reactions: Yes (vomiting) Hx Malignant Hyperthermia: No Meds Allergies/Adverse Reactions: Allergies Allergy/AdvReac Type Severity Reaction Status Date / Time No Known Allergies Allergy Verified 03/08/18 21:12 - Medications Medications: Current Medications Amlodipine Besylate (Norvasc) 10 mg PO DAILY [facility] Aspirin (Aspirin Chewable) 81 mg PO DAILY [facility] Atorvastatin Calcium (Lipitor) 10 mg PO DAILY [facility] Divalproex Sodium (Depakote Dr(*Bid*)) 500 mg PO BID [facility] Last Admin: 08/27/18 17:54 Dose: 500 mg Docusate Sodium (Colace) 100 mg PO HS [facility] Last Admin: 08/27/18 21:31 Dose: 100 mg Dorzolamide HCl (Trusopt) 0 ml OU TID [facility] Last Admin: 08/27/18 17:46 Dose: 1 drop Sodium Chloride (Sodium Chloride 0.9%) 1,000 mls @ 60 mls/hr IV .[id number] [facility] Last Admin: 08/27/18 13:37 Dose: 60 mls/hr Insulin Human Regular (Humulin R High) 0 units SC ACHS [facility]; Protocol Last Admin: 08/28/18 08:21 Dose: Not Given Latanoprost (Xalatan Opht) 0 ml OU HS [facility] Last Admin: 08/27/18 21:41 Dose: 2.5 ml Losartan Potassium (Cozaar) 100 mg PO DAILY [facility] Oxcarbazepine (Trileptal) 300 mg PO BID [facility]; Protocol Last Admin: 08/27/18 17:53 Dose: 300 mg Risperidone (Risperdal Tab) 0.5 mg PO HS [facility]; Protocol Last Admin: 08/27/18 21:31 Dose: 0.5 mg Sertraline HCl (Zoloft) 50 mg PO DAILY [facility] Sitagliptin Phosphate (Januvia) 50 mg PO DAILY [facility] Physical Exam - Constitutional Appears: Non-toxic, No Acute Distress, Chronically Ill - Eye Exam Additional comments: poor vision - ENT Exam ENT Exam: Mucous Membranes Moist - Respiratory Exam Respiratory Exam: Clear to Auscultation Bilateral. absent: Rales, Rhonchi, Wheezes - Cardiovascular Exam Cardiovascular Exam: RRR, +S1, +S2 - GI/Abdominal Exam GI & Abdominal Exam: Normal Bowel Sounds, Soft. absent: Distended, Firm, Guarding, Hernia, Organomegaly, Rigid, Tenderness - Extremities Exam Additional comments: left hemiparesis - Neurological Exam Neurological exam: Alert, Oriented x3 - Psychiatric Exam Psychiatric exam: Normal Affect, Normal Mood - Skin Skin Exam: Dry, Warm Results - Vital Signs Recent Vital Signs: Last Vital Signs Temp 98.9 F 08/28/18 08:26 Pulse 88 08/28/18 08:26 Resp 20 08/28/18 08:26 BP 189/103 H 08/28/18 08:26 Pulse Ox 98 08/28/18 08:26 - Labs Result Diagrams: 08/28/18 06:25 08/28/18 06:25 Labs: Laboratory Results - last 24 hr 08/27/18 08/27/18 08/27/18 08:40 11:43 16:08 WBC RBC Hgb Hct MCV MCH MCHC RDW Plt Count MPV Sodium Potassium Chloride Carbon Dioxide Anion Gap BUN Creatinine Est GFR ( Amer) Est GFR (Non-Af Amer) POC Glucose (mg/dL) 146 H 190 H Random Glucose Calcium Total Bilirubin AST ALT Alkaline Phosphatase Troponin I < 0.01 Total Protein Albumin Globulin Albumin/Globulin Ratio 08/27/18 08/28/18 08/28/18 21:16 06:25 06:25 WBC 5.4 RBC 3.33 L Hgb 10.1 L Hct 30.2 L MCV 90.7 MCH 30.3 MCHC 33.4 RDW 14.3 Plt Count 181 MPV 9.7 Sodium 139 Potassium 3.9 Chloride 104 Carbon Dioxide 30 Anion Gap 9 L BUN 13 Creatinine 0.6 L Est GFR ( Amer) > 60 Est GFR (Non-Af Amer) > 60 POC Glucose (mg/dL) 239 H Random Glucose 119 H Calcium 9.4 Total Bilirubin 0.2 AST 16 L D ALT 10 Alkaline Phosphatase 60 Troponin I Total Protein 5.9 Albumin 3.5 Globulin 2.5 Albumin/Globulin Ratio 1.4 08/28/18 08/28/18 06:52 07:41 WBC RBC Hgb Hct MCV MCH MCHC RDW Plt Count MPV Sodium Potassium Chloride Carbon Dioxide Anion Gap BUN Creatinine Est GFR ( Amer) Est GFR (Non-Af Amer) POC Glucose (mg/dL) 115 H 127 H Random Glucose Calcium Total Bilirubin AST ALT Alkaline Phosphatase Troponin I Total Protein Albumin Globulin Albumin/Globulin Ratio Assessment & Plan - Assessment and Plan (Free Text) Assessment: Patient is a 63yo male with PMHx significant for brain tumor s/p resection in 2009, 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, HTN, dyslipidemia, seizure disorder who presented to the ED with nausea/vomiting -Acute enteritis -Nausea/vomiting Plan: -Patient without nausea/vomiting since admission -Tolerating liquid diet, advance as tolerated -Suspect viral etiology for events, resolved -If tolerating diet, OK for D/C from GI standpoint - Date & Time Date: 08/28/18 Time: 07:15 <Tomi Guillermo - Last Filed: 08/28/18 09:36> Meds - Medications Medications: Current Medications Amlodipine Besylate (Norvasc) 10 mg PO DAILY [facility] Last Admin: 08/28/18 09:21 Dose: 10 mg Aspirin (Aspirin Chewable) 81 mg PO DAILY [facility] Last Admin: 08/28/18 09:18 Dose: 81 mg Atorvastatin Calcium (Lipitor) 10 mg PO DAILY [facility] Last Admin: 08/28/18 09:21 Dose: 10 mg Divalproex Sodium (Depakote Dr(*Bid*)) 500 mg PO BID [facility] Last Admin: 08/28/18 09:20 Dose: 500 mg Docusate Sodium (Colace) 100 mg PO HS [facility] Last Admin: 08/27/18 21:31 Dose: 100 mg Dorzolamide HCl (Trusopt) 0 ml OU TID [facility] Last Admin: 08/28/18 09:22 Dose: 1 drop Sodium Chloride (Sodium Chloride 0.9%) 1,000 mls @ 60 mls/hr IV .[id number] [facility] Last Admin: 08/27/18 13:37 Dose: 60 mls/hr Insulin Human Regular (Humulin R High) 0 units SC ACHS [facility]; Protocol Last Admin: 08/28/18 08:21 Dose: Not Given Latanoprost (Xalatan Opht) 0 ml OU HS [facility] Last Admin: 08/27/18 21:41 Dose: 2.5 ml Losartan Potassium (Cozaar) 100 mg PO DAILY [facility] Last Admin: 08/28/18 09:20 Dose: 100 mg Oxcarbazepine (Trileptal) 300 mg PO BID [facility]; Protocol Last Admin: 08/28/18 09:22 Dose: 300 mg Risperidone (Risperdal Tab) 0.5 mg PO HS [facility]; Protocol Last Admin: 08/27/18 21:31 Dose: 0.5 mg Sertraline HCl (Zoloft) 50 mg PO DAILY [facility] Last Admin: 08/28/18 09:22 Dose: 50 mg Sitagliptin Phosphate (Januvia) 50 mg PO DAILY [facility] Last Admin: 08/28/18 09:21 Dose: 50 mg Results - Vital Signs Recent Vital Signs: Last Vital Signs Temp 98.9 F 08/28/18 08:26 Pulse 88 08/28/18 08:26 Resp 20 08/28/18 08:26 BP 180/100 H 08/28/18 09:21 Pulse Ox 98 08/28/18 08:26 - Labs Result Diagrams: 08/28/18 06:25 08/28/18 06:25 Labs: Laboratory Results - last 24 hr 08/27/18 08/27/18 08/27/18 11:43 16:08 21:16 WBC RBC Hgb Hct MCV MCH MCHC RDW Plt Count MPV Sodium Potassium Chloride Carbon Dioxide Anion Gap BUN Creatinine Est GFR ( Amer) Est GFR (Non-Af Amer) POC Glucose (mg/dL) 146 H 190 H 239 H Random Glucose Calcium Total Bilirubin AST ALT Alkaline Phosphatase Total Protein Albumin Globulin Albumin/Globulin Ratio 08/28/18 08/28/18 08/28/18 06:25 06:25 06:52 WBC 5.4 RBC 3.33 L Hgb 10.1 L Hct 30.2 L MCV 90.7 MCH 30.3 MCHC 33.4 RDW 14.3 Plt Count 181 MPV 9.7 Sodium 139 Potassium 3.9 Chloride 104 Carbon Dioxide 30 Anion Gap 9 L BUN 13 Creatinine 0.6 L Est GFR ( Amer) > 60 Est GFR (Non-Af Amer) > 60 POC Glucose (mg/dL) 115 H Random Glucose 119 H Calcium 9.4 Total Bilirubin 0.2 AST 16 L D ALT 10 Alkaline Phosphatase 60 Total Protein 5.9 Albumin 3.5 Globulin 2.5 Albumin/Globulin Ratio 1.4 08/28/18 07:41 WBC RBC Hgb Hct MCV MCH MCHC RDW Plt Count MPV Sodium Potassium Chloride Carbon Dioxide Anion Gap BUN Creatinine Est GFR ( Amer) Est GFR (Non-Af Amer) POC Glucose (mg/dL) 127 H Random Glucose Calcium Total Bilirubin AST ALT Alkaline Phosphatase Total Protein Albumin Globulin Albumin/Globulin Ratio Attending/Attestation - Attestation I have personally seen and examined this patient.: Yes I have fully participated in the care of the patient.: Yes I have reviewed all pertinent clinical information: Yes Notes (Text): 08/28/18 09:32 I have seen and examined patient with GI fellow. Agree with above documentation with the following additions. In brief, this is a 63 year old male with history of brain tumor s/p resection, CVA with L hemiparesis, HTN, seizure disorder, who presents to hospital with complaint of nausea and vomiting. He reports having mild epigastric discomfort, 3/10 intensity which started two days ago and was associated with a few episodes of non-bloody emesis. Since arrival to hospital his symptoms have resolved and he is able to tolerate liquid diet without diffi culty. He otherwise denies fever/chills, weight loss, rectal bleeding, or change in bowel habits. No prior endoscopic evaluation. History of brain tumor s/p resection CVA with L hemiparesis HTN Seizure disorder Nausea, vomiting - resolved, likely viral gastroenteritis Abdominal US reviewed by me showing multiple cholelithiasis - Advance diet as tolerated - Continue with IVF hydration, supportive care - Anti-emetic therapy PRN - If symptoms persist, would consider surgical evaluation due to presence of cholelithiasis - If patient tolerating PO diet, from GI standpoint can be discharged home with subsequent outpatient follow up. Discussed with Dr. Naylor.
[2018-08-28] MEDS: Divalproex 500 mg DR(BID formulation) PO SCH ×2 (09:20→17:12)
[2018-08-28] MEDS: Dorzolamide 2% Opht Sol 10ml OU SCH ×3 (09:22→17:11)
[2018-08-28 16:13] VITALS: BP 153/87; PULSE 90; RESP 18; TEMP 98.5; O2SAT 94
--- NOTE | 2018-08-29 04:01 | DS ---
HISTORY OF PRESENT ILLNESS: He is doing much better today. GI told him to be discharged that is my plan. He did have a regular lunch. I do not see how he does. He is on aspirin, Colace, Cozaar, Depakote, Januvia, Lipitor, Norvasc, Protonix, Risperdal, Trileptal, Trusopt, Xalatan, Zofran and Zoloft. He is back to his old self this morning. He is no more nauseousness. PHYSICAL EXAMINATION: VITAL SIGNS: He was a 98.9 temperature, 88 pulse, 180/100 blood pressure, however, again his blood pressure measured this morning, 20 respiratory rate, and 98% O2 sat on room air. HEENT: Head is atraumatic and normocephalic. HEART: Regular rate. LUNGS: Decreased breath sounds, but clear. ABDOMEN: Soft. EXTREMITIES: There is weakness secondary to brain surgery and old issues. LABORATORY DATA: He has sodium 139, potassium 3.9, BUN 13, creatinine 0.6, GFR is greater than 60, sugar is 127, calcium is 9.4, and total bilirubin is 0.2. AST is 16, ALT is 10, alkaline phosphatase is 60, and total protein is 5.9. White count 7.4, hemoglobin 10.1, hematocrit 30.2 and platelets 181. ASSESSMENT AND PLAN: He is currently on Cozaar, Norvasc for his blood pressure. I will add clonidine 0.1 for his blood pressure. If he does well for lunch and if this comes down nicely, we will discharge him later today. He was here for nausea, vomiting and viral gastroenteritis. He has got chronic left-sided weakness with hypertension. Carmelo Naylor DO [facility]
== END 2018-08-28 18:43 | disposition home or self-care (01) ==
LOC: ED 06:45 → ERH 09:03 → 5RSO 10:33
PROVIDERS: ADMIT Family Medicine; ATTEND Family Medicine
DX: A08.4 Viral intestinal infection, unspecified (principal); E11.9 Type 2 diabetes mellitus without complications; E78.00 Pure hypercholesterolemia, unspecified; E78.5 Hyperlipidemia, unspecified; G40.909 Epilepsy, unspecified, not intractable, without status epilepticus; H54.61 Unqualified visual loss, right eye, normal vision left eye; I10 Essential (primary) hypertension; I69.354 Hemiplegia and hemiparesis following cerebral infarction affecting left non-dominant side; K76.0 Fatty (change of) liver, not elsewhere classified; K80.20 Calculus of gallbladder without cholecystitis without obstruction; M46.90 Unspecified inflammatory spondylopathy, site unspecified; R32 Unspecified urinary incontinence; Z74.01 Bed confinement status; Z79.82 Long term (current) use of aspirin; Z86.011 Personal history of benign neoplasm of the brain; R00.0 Tachycardia, unspecified; F32.89 Other specified depressive episodes
CPT/HCPCS: 36415; 76700; 80053; 82948; 83690; 83735; 84100; 84484; 85025; 85027; 87040; 87045; 87324; 93005; 96374; 96375; 99283; C9113; G0378; J2405; J7030

== ENCOUNTER 2018-09-18 17:00 | Emergency (ER) | payer MEDICARE, OTHER ==
[2018-09-18 17:01] VITALS: BMI 23.5
--- NOTE | 2018-09-18 17:59 | ED PDOC ---
Arrival/HPI - General Chief Complaint: High Blood Pressure Historian: Patient - History of Present Illness Narrative History of Present Illness (Text): 09/18/18 17:57 A 63 year old male, whose past medical history includes CVA (left upper/lower weakness and old left facial droop), benign brain tumor and hypertension, brought in by Elaine, presents to the emergency department for high blood pressure. Per patient's on the phone, whom Shaka MONTEIRO spoke to, patient's blood pressure at home was 200/160 via wrist meter. Here in the ER, 150/90. Patient denies any headache, chest pain, shortness of breath, or any other complaints at this time. Denies any history of smoking/drinking. Past Medical History - Provider Review Nursing Documentation Reviewed: Yes - Infectious Disease Hx of Infectious Diseases: None - Tetanus Immunization Tetanus Immunization: Unknown - Cardiac Hx Cardiac Disorders: Yes Hx Hypertension: Yes Hx Peripheral Edema: Yes (left hand +2 swollen/contracted) - Pulmonary Hx Respiratory Disorders: No - Neurological Hx Neurological Disorder: Yes HX Cerebrovascular Accident: Yes (2017 left side weakness) Hx Seizures: Yes Hx Transient Ischemic Attacks (TIA): Yes Other/Comment: r frontal craniotomy benign brain tumor 2009, speech impediment - HEENT Hx HEENT Disorder: Yes (right eye blind, retinal problem) Other/Comment: unknown r eye procedure, speech impediment - Renal Hx Renal Disorder: No - Endocrine/Metabolic Hx Endocrine Disorders: Yes Hx Diabetes Mellitus Type 2: Yes - Hematological/Oncological Hx Blood Disorders: No - Integumentary Hx Dermatological Disorder: Yes Other/Comment: stage 2 pressure ulcer 1cm x 1.2cm wound bed red surounded by pink skin, left shoulder mole, dry flakey skin ble and b/l feet, discolored brown skin rle, thick dry toenails both feet, dry skin both arms - Musculoskeletal/Rheumatological Hx Musculoskeletal Disorders: Yes Hx Arthritis: Yes (BACK) Hx Falls: No Hx Unsteady Gait: Yes (left side weak) Other/Comment: bedridden, left hand contracted, unable to straighten fingers, swelling decreased rom, hammertoes b/l feet - Gastrointestinal Hx Gastrointestinal Disorders: Yes Hx Gall Bladder Disease: Yes (gallstones) - Genitourinary/Gynecological Hx Genitourinary Disorders: Yes Hx Incontinence: Yes (urine and stool) Hx Sexually Transmitted Diseases: No - Psychiatric Hx Psychophysiologic Disorder: Yes (suicidal ideation) Hx Anxiety: Yes Hx Depression: Yes Hx Physical Abuse: No Hx Sexual Abuse: No Hx Substance Use: No - Surgical History Other/Comment: tonsillectomy, r frontal craniotomy benign brain tumor 2010, unknown r eye procedure - Anesthesia Hx Anesthesia: Yes Hx Anesthesia Reactions: Yes (vomiting) Hx Malignant Hyperthermia: No - Suicidal Assessment Feels Threatened In Home Enviroment: No Family/Social History - Physician Review Nursing Documentation Reviewed: Yes Family/Social History: No Known Family HX Smoking Status: Never Smoked Hx Alcohol Use: No Hx Substance Use: No Hx Substance Use Treatment: No Allergies/Home Meds Allergies/Adverse Reactions: Allergies No Known Allergies Allergy (Verified 03/08/18 21:12) Home Medications: Home Meds Medication Instructions Recorded Confirmed Divalproex [Depakote DR] 500 mg PO BID 04/14/17 08/27/18 Docusate [Colace] 100 mg PO HS 06/07/17 08/27/18 Dorzolamide 2% [Trusopt] 1 drop OU TID 07/27/17 08/27/18 Carvedilol [Coreg] 6.25 mg PO BID 08/27/18 08/27/18 Esomeprazole Magnesium [Nexium] 40 mg PO DAILY 08/27/18 08/27/18 Famotidine [Pepcid] 20 mg PO BID 08/27/18 08/27/18 Insulin Aspart, Recombinant 16 unit SC TID 08/27/18 08/27/18 [Novolog] Insulin Glargine,Hum.rec.anlog 30 unit SQ HS 08/27/18 08/27/18 [Basaglar Kwikpen U-100] Losartan [Cozaar] 100 mg PO DAILY 08/27/18 08/27/18 Multimineral/Multivitamin 1 tab PO DAILY 08/27/18 08/27/18 [Therapeutic-M Tab] OXcarbazepine [Trileptal] 150 mg PO BID 08/27/18 08/27/18 Risperidone [Risperdal] 2 tab PO BID 08/27/18 08/27/18 SITagliptin [Januvia] 100 mg PO BID 08/27/18 08/27/18 Sertraline [Zoloft] 50 mg PO DAILY 08/27/18 08/27/18 amLODIPine [Norvasc] 10 mg PO DAILY 08/27/18 08/27/18 metFORMIN [glucOPHAGE] 500 mg PO BIDWM 08/27/18 08/27/18 Review of Systems - Physician Review All systems were reviewed & negative as marked: Yes - Review of Systems Constitutional: absent: Fatigue, Fevers Respiratory: absent: SOB Cardiovascular: absent: Chest Pain Gastrointestinal: absent: Abdominal Pain, Vomiting Neurological: absent: Headache Physical Exam Vital Signs Reviewed: Yes Vital Signs Temp Pulse Resp BP Pulse Ox 09/18/18 17:15 97.6 F 80 18 150/97 H 97 Temperature: Afebrile Blood Pressure: Normal Pulse: Regular Respiratory Rate: Normal Appearance: Positive for: Non-Toxic, Comfortable, Other (Chronically ill- appearing) Pain Distress: None Mental Status: Positive for: Alert and Oriented X 3 - Systems Exam Head: Present: Atraumatic, Normocephalic Pupils: Present: PERRL Extroacular Muscles: Present: EOMI Conjunctiva: Present: Normal Mouth: Present: Moist Mucous Membranes Pharnyx: No: ERYTHEMA, EXUDATE, TONSILS ENLARGED Neck: Present: Normal Range of Motion Respiratory/Chest: Present: Clear to Auscultation, Good Air Exchange. No: Respiratory Distress, Accessory Muscle Use Cardiovascular: Present: Regular Rate and Rhythm, Normal S1, S2. No: Murmurs Abdomen: No: Tenderness, Distention, Peritoneal Signs Back: Present: Normal Inspection Upper Extremity: Present: Normal Inspection. No: Cyanosis, Edema Lower Extremity: Present: Normal Inspection. No: Edema Neurological: Present: GCS=15, CN II-XII Intact, Speech Normal. 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 No: Rashes Psychiatric: Present: Alert, Oriented x 3, Normal Insight, Normal Concentration Medical Decision Making ED Course and Treatment: 09/18/18 18:26 Nurse spoke with the patient's over the telephone. Reports that his blood pressure was elevated at 200/160. In the emergency department the patient's blood pressure is 150/97. Apparently he has been taking his medication. He will have a home visit with Dr. Naylor to determine any changes in his blood pressure medication regimen. Follow-up in the emergency department as needed. Discussed with Dr. Naylor. - Scribe Statement The provider has reviewed the documentation as recorded by the Lukas Morse Provider Lukas Attestation: All medical record entries made by the Scribe were at my direction and personally dictated by me. I have reviewed the chart and agree that the record accurately reflects my personal performance of the history, physical exam, medical decision making, and the department course for this patient. I have also personally directed, reviewed, and agree with the discharge instructions and disposition. Disposition/Present on Arrival - Present on Arrival Any Indicators Present on Arrival: No History of DVT/PE: No History of Uncontrolled Diabetes: No Urinary Catheter: No History of Decub. Ulcer: No History Surgical Site Infection Following: None - Disposition Have Diagnosis and Disposition been Completed?: Yes Diagnosis: HTN (hypertension) Disposition: HOME/ ROUTINE Disposition Time: 18:27 Patient Plan: Discharge Condition: FAIR Discharge Instructions (ExitCare): High Blood Pressure in Adults Forms: [employer] ([place])
[2018-09-18 18:33] VITALS: TEMP 98
[2018-09-18 18:53] VITALS: BP 159/82; PULSE 75; RESP 17; O2SAT 98
--- NOTE | 2018-09-19 09:58 | CARD ---
APPROVED REPORT Date of service: 09/18/2018 EKG Measurement Heart [id number] [place] [id number] [id number] <Conclusion> Normal sinus rhythm Normal ECG
== END 2018-09-18 18:51 | disposition home or self-care (01) ==
LOC: ED 17:00
DX: I10 Essential (primary) hypertension (principal); R29.810 Facial weakness; Z86.73 Personal history of transient ischemic attack (TIA), and cerebral infarction without residual deficits

== ENCOUNTER 2018-09-22 17:46 | Observation (INO) | payer MEDICARE, OTHER ==
[2018-09-22 17:47] VITALS: BMI 23.5
[2018-09-22 18:03] VITALS: RESP 18
--- NOTE | 2018-09-22 18:15 | ED PDOC ---
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 Patient reports he is concerned he has pneumonia. States he was here recently for a different issue, however is uncertain for what. Patient denies any shortness of breath, fever, nausea, vomiting, diarrhea, nasal drainage, any pain, or any other complaints at this time. Past Medical History - Provider Review Nursing Documentation Reviewed: Yes - Infectious Disease Hx of Infectious Diseases: None - Tetanus Immunization Tetanus Immunization: Unknown - Cardiac Hx Cardiac Disorders: Yes Hx Hypertension: Yes Hx Peripheral Edema: Yes (left hand +2 swollen/contracted) - Pulmonary Hx Respiratory Disorders: No - Neurological Hx Neurological Disorder: Yes HX Cerebrovascular Accident: Yes (2017 left side weakness) Hx Seizures: Yes Hx Transient Ischemic Attacks (TIA): Yes Other/Comment: r frontal craniotomy benign brain tumor 2009, speech impediment - HEENT Hx HEENT Disorder: Yes (right eye blind, retinal problem) Other/Comment: unknown r eye procedure, speech impediment - Renal Hx Renal Disorder: No - Endocrine/Metabolic Hx Endocrine Disorders: Yes Hx Diabetes Mellitus Type 2: Yes - Hematological/Oncological Hx Blood Disorders: No - Integumentary Hx Dermatological Disorder: Yes Other/Comment: stage 2 pressure ulcer 1cm x 1.2cm wound bed red surounded by pink skin, left shoulder mole, dry flakey skin ble and b/l feet, discolored brown skin rle, thick dry toenails both feet, dry skin both arms - Musculoskeletal/Rheumatological Hx Musculoskeletal Disorders: Yes Hx Arthritis: Yes (BACK) Hx Falls: No Hx Unsteady Gait: Yes (left side weak) Other/Comment: bedridden, left hand contracted, unable to straighten fingers, swelling decreased rom, hammertoes b/l feet - Gastrointestinal Hx Gastrointestinal Disorders: Yes Hx Gall Bladder Disease: Yes (gallstones) - Genitourinary/Gynecological Hx Genitourinary Disorders: Yes Hx Incontinence: Yes (urine and stool) Hx Sexually Transmitted Diseases: No - Psychiatric Hx Psychophysiologic Disorder: Yes (suicidal ideation) Hx Anxiety: Yes Hx Depression: Yes Hx Physical Abuse: No Hx Sexual Abuse: No Hx Substance Use: No - Surgical History Other/Comment: tonsillectomy, r frontal craniotomy benign brain tumor 2010, u nknown r eye procedure - Anesthesia Hx Anesthesia: Yes Hx Anesthesia Reactions: Yes (vomiting) Hx Malignant Hyperthermia: No - Suicidal Assessment Feels Threatened In Home Enviroment: No Family/Social History - Physician Review Nursing Documentation Reviewed: Yes Family/Social History: No Known Family HX Smoking Status: Never Smoked Hx Alcohol Use: No Hx Substance Use: No Hx Substance Use Treatment: No Allergies/Home Meds Allergies/Adverse Reactions: Allergies No Known Allergies Allergy (Verified 09/22/18 18:01) Home Medications: Home Meds Medication Instructions Recorded Confirmed Divalproex [Depakote DR] 500 mg PO BID 04/14/17 08/27/18 Docusate [Colace] 100 mg PO HS 06/07/17 08/27/18 Dorzolamide 2% [Trusopt] 1 drop OU TID 07/27/17 08/27/18 Carvedilol [Coreg] 6.25 mg PO BID 08/27/18 08/27/18 Esomeprazole Magnesium [Nexium] 40 mg PO DAILY 08/27/18 08/27/18 Famotidine [Pepcid] 20 mg PO BID 08/27/18 08/27/18 Insulin Aspart, Recombinant 16 unit SC TID 08/27/18 08/27/18 [Novolog] Insulin Glargine,Hum.rec.anlog 30 unit SQ HS 08/27/18 08/27/18 [Basaglar Kwikpen U-100] Losartan [Cozaar] 100 mg PO DAILY 08/27/18 08/27/18 Multimineral/Multivitamin 1 tab PO DAILY 08/27/18 08/27/18 [Therapeutic-M Tab] OXcarbazepine [Trileptal] 150 mg PO BID 08/27/18 08/27/18 Risperidone [Risperdal] 2 tab PO BID 08/27/18 08/27/18 SITagliptin [Januvia] 100 mg PO BID 08/27/18 08/27/18 Sertraline [Zoloft] 50 mg PO DAILY 08/27/18 08/27/18 amLODIPine [Norvasc] 10 mg PO DAILY 08/27/18 08/27/18 metFORMIN [glucOPHAGE] 500 mg PO BIDWM 08/27/18 08/27/18 Review of Systems - Physician Review All systems were reviewed & negative as marked: Yes - Review of Systems Constitutional: absent: Fevers Respiratory: Cough (constant, non-productive, non-bloody, with phlegm). absent: SOB Gastrointestinal: absent: Diarrhea, Nausea, Vomiting Physical Exam Vital Signs Reviewed: Yes Vital Signs Temp Pulse Resp BP Pulse Ox 09/22/18 18:01 98.8 F 79 18 167/96 H 99 09/22/18 17:47 97.8 F 78 18 167/86 H 99 Temperature: Afebrile Blood Pressure: Hypertensive Pulse: Regular Respiratory Rate: Normal Appearance: Positive for: Well-Appearing, Non-Toxic, Comfortable Pain Distress: None Mental Status: Positive for: Alert and Oriented X 3 - Systems Exam Head: Present: Atraumatic, Normocephalic Pupils: Present: PERRL Extroacular Muscles: Present: EOMI Conjunctiva: Present: Normal Mouth: Present: Moist Mucous Membranes Neck: Present: Normal Range of Motion Respiratory/Chest: Present: Other (coarse breath sounds bilaterally to anterior lung cage and crackles bilaterally) Cardiovascular: Present: Regular Rate and Rhythm, Normal S1, S2. No: Murmurs Abdomen: No: Tenderness, Distention, Peritoneal Signs Back: Present: Normal Inspection Upper Extremity: Present: Normal Inspection. No: Cyanosis, Edema Lower Extremity: Present: Normal Inspection. No: Edema Neurological: Present: GCS=15, CN II-XII Intact, Speech Normal Skin: Present: Warm, Dry, Normal Color. No: Rashes Psychiatric: Present: Alert, Oriented x 3, Normal Insight, Normal Concentration Medical Decision Making ED Course and Treatment: 09/22/18 18:16 Impression: 63 year old male with constant, non-productive, non-bloody, cough with phlegm. Differential Diagnosis included but are not limited to: CHF vs. Pneumonia vs. Post-nasal Drip Plan: -- EKG -- Labs -- Chest X-ray -- Venous Blood Gas -- Blood Culture -- Urine Culture -- Urinalysis -- Reassess and disposition Prior Visits: Notes and results from previous visits were reviewed. Patient was last seen in the emergency department on 09/18/2018 for high blood pressure. Patient was discharged home. Progress Notes: - RAD Interpretation Radiology Orders: 09/22/18 18:08 CHEST PORTABLE [RAD] Stat - Scribe Statement The provider has reviewed the documentation as recorded by the Lukas Morse Provider Scribe Attestation: All medical record entries made by the Lukas were at my direction and personally dictated by me. I have reviewed the chart and agree that the record accurately reflects my personal performance of the history, physical exam, medical decision making, and the department course for this patient. I have also personally directed, reviewed, and agree with the discharge instructions and disposition. Disposition/Present on Arrival - Present on Arrival History of DVT/PE: No History of Uncontrolled Diabetes: No Urinary Catheter: No History of Decub. Ulcer: No History Surgical Site Infection Following: None - Disposition
[2018-09-22 18:36] LABS: VENOUS BLOOD GAS BASE EXCESS 6.6 mmol/L (0.0-2.0); VENOUS BLOOD GAS PO2 23 mm/Hg (30-55); VENOUS BLOOD PH 7.42 (7.32-7.43)
[2018-09-22 18:37] LABS: BASO # 0.02 K/mm3 (0.0-2.0); BASO % 0.5 % (0.0-3.0); EOS # 0.3 (0.0-0.7); EOS % 6.3 % (1.5-5.0); HEMOGLOBIN 11.2 g/dL (14.0-18.0); LYMPH # 1.8 (1.2-3.4); LYMPH % 42.4 % (22.0-35.0); MEAN CELL VOLUME 89.4 fl (80.0-105.0); MEAN CORPUSCULAR HEMOGLOBIN 30.5 pg (25.0-35.0); MEAN CORPUSCULAR HGB CONC 34.1 g/dl (31.0-37.0); MEAN PLATELET VOLUME 9.6 fl (7.0-11.0); MONO # 0.3 (0.1-0.6); MONO % 5.9 % (1.0-6.0); RBC 3.67 10^6/uL (3.5-6.1); RED CELL DISTRIBUTION WIDTH 13.2 % (11.5-14.5); WHITE BLOOD COUNT 4.3 10^3/uL (4.5-11.0)
[2018-09-22 18:46] LABS: URINE BILIRUBIN NEGATIVE (NEGATIVE); URINE BLOOD NEGATIVE (NEGATIVE); URINE GLUCOSE (UA) NEGATIVE (NEGATIVE); URINE LEUKOCYTE ESTERASE NEGATIVE Leu/uL (NEGATIVE); URINE PROTEIN NEGATIVE mg/dL (<30 mg/dL); URINE UROBILINOGEN 0.2 E.U./dL (<1 E.U./dL)
[2018-09-22 18:47] LABS: URINE APPEARANCE CLEAR (CLEAR); URINE COLOR LIGHT YELLOW (YELLOW)
--- NOTE | 2018-09-22 18:48 | RAD ---
Date of service: 09/22/2018 HISTORY: sob COMPARISON: 12/29/2017 FINDINGS: LUNGS: The lungs are well inflated and clear. PLEURA: No pleural effusions or pneumothorax. CARDIOVASCULAR: The heart is normal in size. No aortic atherosclerotic calcifications present. OSSEOUS STRUCTURES: Within normal limits for the patient's age. VISUALIZED UPPER ABDOMEN: Normal. OTHER FINDINGS: None. IMPRESSION: No active pulmonary disease.
[2018-09-22 18:49] LABS: INR 1.05; PARTIAL THROMBOPLASTIN TIME 32.6 Seconds (26.9-38.3); PROTHROMBIN TIME 11.7 SECONDS (9.4-12.5)
[2018-09-22 18:57] LABS: ALB/GLOB RATIO 1.4 (1.1-1.8); ALT/SGPT < 6 U/L (7-56); AST/SGOT 17 U/L (17-59); BLOOD UREA NITROGEN 26 mg/dL (7-21); CALCIUM 9.5 mg/dL (8.4-10.5); GFR NON-AFRICAN AMERICAN > 60
[2018-09-22 19:06] LABS: B-TYPE NATRIURETIC PEPTIDE 71.6 pg/mL (0-450); TROPONIN I < 0.01 ng/mL
--- NOTE | 2018-09-22 20:03 | ED PDOC ---
Physical Exam Vital Signs Reviewed: Yes Vital Signs Temp Pulse Resp BP Pulse Ox 09/22/18 19:09 97.6 F 77 18 167/86 H 98 09/22/18 18:01 98.8 F 79 18 167/96 H 99 09/22/18 17:47 97.8 F 78 18 167/86 H 99 Temperature: Afebrile Blood Pressure: Hypertensive Pulse: Regular Respiratory Rate: Normal Appearance: Positive for: Well-Appearing, Non-Toxic, Comfortable Pain Distress: None Mental Status: Positive for: Alert and Oriented X 3 - Systems Exam Mouth: Present: Dry Pharnyx: Present: Normal Respiratory/Chest: Present: Good Air Exchange, Rhonchi (rhonchi at the left lung base). No: Accessory Muscle Use, Wheezes, Rales Cardiovascular: Present: Regular Rate and Rhythm Neurological: Present: Speech Normal Skin: Present: Warm, Dry, Pale. No: Rashes Psychiatric: Present: Alert, Oriented x 3, Normal Insight, Normal Concentration Medical Decision Making ED Course and Treatment: 09/22/18 190 received sign out from dr. palmer patient seen and examined by myself. Patient states he has been having a persistent dry cough but no fever or respiratory distress, no chest pain. On PE there is mild rhonchi noted in the left lung base, no wheeze, no rales. Will get follow up CT to eval for suspected pneumonia. 09/22/18 21:41 09/22/18 22:43 patient is discharged from a medical standpoint however there is nobody at the patient's home to let him in the house. the report is that the daughter is [place] [facility] [place]. Unfortunately there was no way to coordinate entrance into the patient's home. 09/22/18 22:47 admit accepted by [facility] Rosen covering with Dr. Naylor. Admit observation. Patient will probably need manager social media. - Lab Interpretations Lab Results: pO2 23 mm/Hg (30-55) L 09/22/18 18:28 VBG pH 7.42 (7.32-7.43) 09/22/18 18:28 VBG pCO2 50.0 (40-60) 09/22/18 18:28 VBG HCO3 32.4 mmol/l (21-28) H 09/22/18 18:28 VBG Total CO2 33.9 mmol.L (22-28) H 09/22/18 18:28 VBG O2 Sat (Calc) 34.3 % (40-65) L 09/22/18 18: VBG Base Excess 6.6 mmol/L (0.0-2.0) H 09/22/18 18: VBG Potassium 4.1 mmol/L (3.6-5.2) 09/22/18 18: Sodium 139.0 mmol/L (132-148) 09/22/18 18: Chloride 104.0 mmol/L (98-107) 09/22/18 18: Glucose 145 mg/dl (75-110) H 09/22/18 18: Lactate 3.4 mmol/L (0.7-2.1) H 09/22/18 18: FiO2 21.0 % 09/22/18 18: Crit Value Called To Kathia branch 09/22/18 18: [place] [id number] 09/22/18 18: Blood Gas Notified Time 1838 09/22/18 18: PT 11.7 SECONDS (9.4-12.5) 09/22/18 18: INR 1.05 09/22/18 18: APTT 32.6 Seconds (26.9-38.3) 09/22/18 18: Troponin I < 0.01 ng/mL 09/22/18 18: NT-Pro-B Natriuret Pep 71.6 pg/mL (0-450) 09/22/18 18: Total Bilirubin 0.2 mg/dL (0.2-1.3) 09/22/18 18: AST 17 U/L (17-59) 09/22/18 18: ALT < 6 U/L (7-56) L 09/22/18: Alkaline Phosphatase 67 U/L (38-126) 09/22/18 18: Total Protein 7.0 g/dL (5.8-8.3) 09/22/18 18: Albumin 4.0 g/dL (3.0-4.8) 09/22/18 18: Globulin 3.0 gm/dL 09/22/18 18: Albumin/Globulin Ratio 1.4 (1.1-1.8) 09/22/18 18:23 Urine Color Light yellow (YELLOW) 09/22/18 18:35 Urine Appearance Clear (CLEAR) 09/22/18 18:35 Urine pH 6.0 (4.7-8.0) 09/22/18 18:35 Ur Specific [place] 1.025 (1.005-1.035) 09/22/18 18:35 Urine Protein Negative mg/dL (<30 mg/dL) 09/22/18 18:35 Urine Glucose (UA) Negative mg/dL (NEGATIVE) 09/22/18 18:35 Urine Ketones Negative mg/dL (NEGATIVE) 09/22/18 18:35 Urine Blood Negative (NEGATIVE) 09/22/18 18:35 Urine Nitrate Negative (NEGATIVE) 09/22/18 18:35 Urine Bilirubin Negative (NEGATIVE) 09/22/18 18:35 Urine Urobilinogen 0.2 E.U./dL (<1 E.U./dL) 09/22/18 18:35 Ur Leukocyte Esterase Negative Shaun/uL (NEGATIVE) 09/22/18 18:35 - RAD Interpretation Narrative RAD Interpretations (Text): 09/22/18 21:39 CT Chest without Intravenous Contrast. CLINICAL HISTORY: COUGH - PNEUMONIA TECHNIQUE: Axial computed tomography images of the chest without intravenous contrast. 474.98 mGy-cm CONTRAST: Without COMPARISON: None provided. FINDINGS: LUNGS: The lungs are clear. No pulmonary mass. PLEURAL SPACES: No evidence of pneumothorax. No pleural effusion. HEART: No cardiomegaly. No pericardial effusion. MEDIASTINUM: Circumferential mucosal wall thickening is seen throughout the thoracic esophagus. The mucosal wall thickening is most pronounced in the lower levels. This may be compatible with diffuse esophagitis. LYMPH NODES: No lymphadenopathy is evident. BONES: No focal osseous abnormality or acute fracture. Ankylosing spondylitis is noted throughout the thoracic spine. UPPER ABDOMEN: The upper abdomen demonstrates sludge or tiny gravel in the gallbladder lumen. There is hepatomegaly noted. The liver measured 18.4 cm in the midclavicular line. IMPRESSION: 1. Circumferential mucosal wall thickening throughout the thoracic esophagus may be compatible with diffuse esophagitis. 2. No acute pulmonary disease. 3. Hepatomegaly. 4. Sludge or gravel noted in the gallbladder lumen. Radiology Orders: 09/22/18 18:08 CHEST PORTABLE [RAD] Stat 09/22/18 19:35 CHEST W/O CONTRAST [CT] Stat Ad Setter: Radiologist - Medication Orders Current Medication Orders: Discontinued Medications Methylprednisolone (Solu-Medrol) 125 mg IVP STAT STA Stop: 09/22/18 18:51 Last Admin: 09/22/18 19:03 Dose: 125 mg IVP Administration Document 09/22/18 19:03 SUNG (Rec: 09/22/18 19:03 SUNG [id number]) Charges for Administration # of IVP Administrations 1 Disposition/Present on Arrival - Present on Arrival Any Indicators Present on Arrival: No History of DVT/PE: No History of Uncontrolled Diabetes: No Urinary Catheter: No History of Decub. Ulcer: No History Surgical Site Infection Following: None - Disposition Have Diagnosis and Disposition been Completed?: Yes Diagnosis: Cough Disposition: HOSPITALIZED Disposition Time: 22:51 Patient Plan: Discharge, Observation Patient Problems: Current Active Problems Problem Status Onset Cough Acute Condition: STABLE Discharge Instructions (ExitCare): Cough, Adult (DC) Additional Instructions: follow up with your primary care doctor as soon as possible. Prescriptions: guaiFENesin [mucINEX] 600 mg PO Q12H 7 Days #14 tab Forms: [employer] (Faroese)
[2018-09-22 21:11] VITALS: O2SAT 95
--- NOTE | 2018-09-22 22:34 | CARD ---
APPROVED REPORT Date of service: 09/22/2018 EKG Measurement Heart [id number] [place] [id number] <Conclusion> Normal sinus rhythm Normal ECG
[2018-09-22 23:46] LABS: VENOUS BLOOD GAS BASE EXCESS 3.3 mmol/L (0.0-2.0); VENOUS BLOOD GAS PO2 88 mm/Hg (30-55); VENOUS BLOOD PH 7.44 (7.32-7.43)
[2018-09-23] MEDS ORDERED: Magnesium Sulfate 1 gm in D5W 1 GM/100 ML BAG IVPB ONE (02:00)
[2018-09-23 08:34] VITALS: BP 135/76; PULSE 86; TEMP 98
--- NOTE | 2018-09-23 12:22 | CT ---
Date of service: 09/22/2018 PROCEDURE: CT Chest without contrast HISTORY: cough, pneumonia COMPARISON: None available. TECHNIQUE: Contiguous axial images were obtained through the chest without intravenous contrast enhancement. Sagittal and coronal reconstructions were performed. Radiation dose: Total exam DLP = 474.98 mGy-cm. This CT exam was performed using one or more of the following dose reduction techniques: Automated exposure control, adjustment of the mA and/or kV according to patient size, and/or use of iterative reconstruction technique. FINDINGS: LUNGS: Clear lungs. Visualized airway clear MEDIASTINUM: Unremarkable thoracic aorta. No aneurysm. Normal sized heart. Main pulmonary artery unremarkable. No vascular congestion. No lymphadenopathy. No aortic atherosclerotic calcification. PLEURA: No pleural fluid. No pneumothorax. BONES: No fracture. No destructive lesion. UPPER ABDOMEN: Cholelithiasis. OTHER FINDINGS: None. IMPRESSION: No acute pathology in the chest.
--- NOTE | 2018-09-23 20:19 | HP ---
DATE OF EXAM: 09/23/2018 HISTORY OF PRESENT ILLNESS: He was brought into the emergency room last night. He is a 63-year-old white male, who will do house calls on for a dry cough, nonbloody, no phlegm. There was concern of a pneumonia. PAST MEDICAL HISTORY: He has a past medical history of CVA with left-sided weakness, facial droop, has a benign brain tumor surgery in the past, hypertension, arthritis, falls, gait instability, bedridden, hammertoes, stage II pressure ulcers, gallstones, incontinence of urine, suicidal ideation in the past, anxiety, depression. PAST SURGICAL HISTORY: He has had a tonsillectomy, right frontal craniotomy for benign brain tumor in 2009, right eye procedure. He was coughing. FAMILY HISTORY: No known family history. SOCIAL HISTORY: No smoker. No drinking. No drugs. ALLERGIES: NO KNOWN DRUG ALLERGIES. MEDICATIONS: He is on Depakote, Colace, Trusopt, Coreg, Nexium, Pepcid, Novolog, Cozaar, Trileptal, Risperdal, Januvia, Zoloft, Norvasc, Glucophage, and vitamins. REVIEW OF SYSTEMS: He has a cough. No acute vision or hearing changes. No chest pain. No shortness of breath, just a cough. No abdominal pain, nausea, vomiting, constipation, or diarrhea. He has left-sided weakness. Skin, he has ulcers in the bottom. PHYSICAL EXAMINATION: VITAL SIGNS: He has a 98.8 temperature, 79 pulse, 18 respiratory rate, 167/96 blood pressure came down to 167/86, 99 pulse ox. GENERAL: He is well appearing, nontoxic, comfortable, alert and talking with me. He knows me very well from house calls. HEENT: Head is atraumatic, normocephalic. Extraocular muscles intact. He has right-sided gaze as he is really got to force to get to look left. Throat is moist. NECK: Supple. HEART: Regular rate. Normal S1, S2. LUNGS: Decreased breath sounds, clear. No real congestion. ABDOMEN: Soft, nontender. Positive bowel sounds. EXTREMITIES: No edema. Left side is weak. GCS 15. SKIN: No apparent rashes that I could tell. He does have sacral ulcers on the bottom. NEUROLOGIC: Alert and oriented x3. LABORATORY DATA: He had multiple tests done. He had a chest x-ray, which showed no active pulmonary disease. EKG, which showed normal sinus rhythm. He had a CAT scan of the chest, which stated some mucus thickening, could be esophagitis, no acute pulmonary disease. 4.3 white count, 11.2 hemoglobin, 32.8 hematocrit with 187 platelets. INR is 1.05. Lactate was down to 1.7. 140 sodium, potassium 4, BUN 26, creatinine 0.8, GFR greater than 60, sugar is 138, calcium 9.5, magnesium 1.6, total bili is 0.2, AST is 17, ALT is 6, alk phos 67. Troponin I is less than 0.01. BNP is 71.6, protein is 7. Urine is clean. PLAN: The plan was to discharge him from the emergency room last night, but the problem was that there was nobody answering the phone calls at home, so they kept him overnight as a social, so he can be discharged today. So, I am admitting him for a cough, social admission because there was nobody to take him home last night, and hopefully, we will get him discharged this morning. Carmelo Naylor DO
--- NOTE | 2018-09-23 23:44 | DS ---
HOSPITAL COURSE: They got in touch with his family this morning, will make arrangements, he will be discharged. He came in with the cough. All the tests were basically normal, even the CAT scan of the chest was normal. The labs were good and they could not find his family last night, so they put him in the hospital, so could not discharge him, social admission, observation, now is being discharged home. Nothing change with his labs or vital signs. He is doing quite well. He is being discharged to home today. I will see him on house call. Carmelo Naylor DO MTDD
== END 2018-09-23 11:58 | disposition home or self-care (01) ==
LOC: ED 17:46 → ERH 22:52 → 5RSO 09-23 01:17
PROVIDERS: ADMIT Family Medicine; ATTEND Family Medicine
DX: R05 Cough (principal); I10 Essential (primary) hypertension; E11.9 Type 2 diabetes mellitus without complications; L89.92 Pressure ulcer of unspecified site, stage 2; H54.61 Unqualified visual loss, right eye, normal vision left eye; I69.392 Facial weakness following cerebral infarction; R26.81 Unsteadiness on feet; I69.354 Hemiplegia and hemiparesis following cerebral infarction affecting left non-dominant side; Z86.011 Personal history of benign neoplasm of the brain; Z74.01 Bed confinement status; Z79.4 Long term (current) use of insulin
CPT/HCPCS: 36415; 71045; 71250; 80053; 81003; 82803; 83735; 83880; 84484; 85025; 85610; 85730; 87040; 87086; 87149; 87181; 87205; 93005; 96374; 99285; G0378; J0360; J2930; J3475

== ENCOUNTER 2018-10-01 00:05 | Emergency (ER) | payer MEDICARE, OTHER ==
--- NOTE | 2018-10-01 02:22 | ED PDOC ---
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 Patient states he was trying to get out of bed when he fell backwards, but denies any injury or loss of consciousness. Patient denies any fever, chills, chest pain, shortness of breath, nausea, vomiting, diarrhea, urinary symptoms, back pain, neck pain, headache, dizziness, or any other complaints. Time/Duration: Prior to Arrival Symptom Onset: Sudden Activities at Onset: Light Context: Home Past Medical History - Provider Review Nursing Documentation Reviewed: Yes - Infectious Disease Hx of Infectious Diseases: None - Tetanus Immunization Tetanus Immunization: Unknown - Cardiac Hx Hypertension: Yes Hx Peripheral Edema: Yes (left hand +2 swollen/contracted) - Pulmonary Hx Respiratory Disorders: No - Neurological Hx Seizures: Yes Hx Transient Ischemic Attacks (TIA): Yes - HEENT Hx HEENT Disorder: Yes (right eye blind, retinal problem) Hx Blind: Yes Other/Comment: unknown r eye procedure, speech impediment - Renal Hx Renal Disorder: No - Endocrine/Metabolic Hx Endocrine Disorders: Yes Hx Diabetes Mellitus Type 2: Yes - Hematological/Oncological Hx Blood Disorders: No - Integumentary Hx Dermatological Disorder: Yes Other/Comment: stage 2 pressure ulcer 1cm x 1.2cm wound bed red surounded by pink skin, left shoulder mole, dry flakey skin ble and b/l feet, discolored brown skin rle, thick dry toenails both feet, dry skin both arms - Musculoskeletal/Rheumatological Hx Arthritis: Yes (BACK) - Gastrointestinal Hx Gall Bladder Disease: Yes (gallstones) - Genitourinary/Gynecological Hx Sexually Transmitted Diseases: No - Psychiatric Hx Anxiety: Yes Hx Depression: Yes Hx Substance Use: No - Surgical History Hx Tonsillectomy: Yes - Anesthesia Hx Anesthesia: Yes Hx Anesthesia Reactions: Yes (vomiting) Hx Malignant Hyperthermia: No - Suicidal Assessment Feels Threatened In Home Enviroment: No Family/Social History - Physician Review Nursing Documentation Reviewed: Yes Family/Social History: Unknown Family HX Smoking Status: Never Smoked Hx Alcohol Use: No Hx Substance Use: No Hx Substance Use Treatment: No Allergies/Home Meds Allergies/Adverse Reactions: Allergies No Known Allergies Allergy (Verified 09/22/18 18:01) Home Medications: Home Meds Medication Instructions Recorded Confirmed Divalproex [Depakote DR] 500 mg PO BID 04/14/17 08/27/18 Docusate [Colace] 100 mg PO HS 06/07/17 08/27/18 Dorzolamide 2% [Trusopt] 1 drop OU TID 07/27/17 08/27/18 Carvedilol [Coreg] 6.25 mg PO BID 08/27/18 08/27/18 Esomeprazole Magnesium [Nexium] 40 mg PO DAILY 08/27/18 08/27/18 Famotidine [Pepcid] 20 mg PO BID 08/27/18 08/27/18 Insulin Aspart, Recombinant 16 unit SC TID 08/27/18 08/27/18 [Novolog] Insulin Glargine,Hum.rec.anlog 30 unit SQ HS 08/27/18 08/27/18 [Basaglar Kwikpen U-100] Losartan [Cozaar] 100 mg PO DAILY 08/27/18 08/27/18 Multimineral/Multivitamin 1 tab PO DAILY 08/27/18 08/27/18 [Therapeutic-M Tab] OXcarbazepine [Trileptal] 150 mg PO BID 08/27/18 08/27/18 Risperidone [Risperdal] 2 tab PO BID 08/27/18 08/27/18 SITagliptin [Januvia] 100 mg PO BID 08/27/18 08/27/18 Sertraline [Zoloft] 50 mg PO DAILY 08/27/18 08/27/18 amLODIPine [Norvasc] 10 mg PO DAILY 08/27/18 08/27/18 metFORMIN [glucOPHAGE] 500 mg PO BIDWM 08/27/18 08/27/18 Review of Systems - Physician Review All systems were reviewed & negative as marked: Yes - Review of Systems Constitutional: Other (Fall). absent: Fatigue, Fevers Eyes: absent: Vision Changes Respiratory: absent: SOB, Wheezing Cardiovascular: absent: Chest Pain, Edema Gastrointestinal: absent: Abdominal Pain Musculoskeletal: absent: Back Pain, Neck Pain Skin: absent: Rash Neurological: absent: Headache, Dizziness, Speech Changes, Facial Droop Physical Exam Vital Signs Reviewed: Yes Temperature: Afebrile Blood Pressure: Normal Pulse: Regular Respiratory Rate: Normal Appearance: Positive for: Well-Appearing Pain Distress: None Mental Status: Positive for: Alert and Oriented X 3 - Systems Exam Head: Present: Atraumatic, Normocephalic Pupils: Present: PERRL. No: Sluggish, Non-Reactive Extroacular Muscles: Present: EOMI Conjunctiva: Present: Normal Ears: Present: Normal Mouth: Present: Moist Mucous Membranes Neck: Present: Normal Range of Motion. No: MIDLINE TENDERNESS, JVD Respiratory/Chest: Present: Clear to Auscultation, Good Air Exchange. No: Respiratory Distress Cardiovascular: Present: Regular Rate and Rhythm. No: Murmurs Abdomen: No: Tenderness Back: Present: Normal Inspection Upper Extremity: Present: Normal ROM, NORMAL PULSES, Other (Residual left arm paresis). No: Cyanosis, Edema, Tenderness, Swelling, Erythema, Temperature Abnormalties, Deformity Lower Extremity: Present: NORMAL PULSES, Normal ROM, Neurovascularly Intact, Capillary Refill < 2 s. No: Tenderness, Swelling, Erythema, Deformity, Temperature Abnormalties Neurological: Present: Motor Func Grossly Intact Skin: Present: Warm, Dry, Normal Color. No: Rashes Psychiatric: Present: Alert, Oriented x 3, Normal Insight, Normal Concentration Medical Decision Making ED Course and Treatment: 10/01/18 02:36 Impression: 63 year old male who was brought to the emergency department after falling from bed. Plan: -- Reassess and disposition Prior Visits: Notes and results from previous visits were reviewed. Progress Notes: Pt is awake, alert, and in no acute distress. Pt will full ROM in all extremities, only residual left arm paresis from prior CVA. Pt denies any complaints, states he feels fine and denies any dizziness, LOC, or pain. All questions answered and there is agreement with the plan to discharge home with instructions. Patient stable for discharge. Return if symptoms persist or worsen. - Scribe Statement The provider has reviewed the documentation as recorded by the Lukas Whitt training under Domenica Wang All medical record entries made by the Scribe were at my direction and personally dictated by me. I have reviewed the chart and agree that the record accurately reflects my personal performance of the history, physical exam, medical decision making, and the department course for this patient. I have also personally directed, reviewed, and agree with the discharge instructions and disposition. Disposition/Present on Arrival - Present on Arrival Any Indicators Present on Arrival: No History of DVT/PE: No History of Uncontrolled Diabetes: No Urinary Catheter: Yes History of Decub. Ulcer: No History Surgical Site Infection Following: None - Disposition Have Diagnosis and Disposition been Completed?: Yes Diagnosis: Fall Disposition: HOME/ ROUTINE Disposition Time: 02:45 Patient Plan: Discharge Condition: GOOD Discharge Instructions (ExitCare): Preventing Falls in the Older Adult Additional Instructions: Follow up with your doctor this week Referrals: Disha Spicer MD [Medical Doctor] - Follow up with primary Forms: [employer] (Austrian)
[2018-10-01 02:30] VITALS: BMI 25.1
[2018-10-01 02:32] VITALS: RESP 17; TEMP 98.2
[2018-10-01 05:14] VITALS: BP 128/69; PULSE 70; O2SAT 99
== END 2018-10-01 05:14 | disposition home or self-care (01) ==
LOC: ED 00:05
DX: Z04.3 Encounter for examination and observation following other accident (principal); W06.XXXA Fall from bed, initial encounter; Y92.003 Bedroom of unspecified non-institutional (private) residence as the place of occurrence of the external cause

== ENCOUNTER 2018-10-26 22:55 | Observation (INO) | payer MEDICARE, OTHER ==
[2018-10-26 22:55] VITALS: BMI 25.1
[2018-10-27 01:33] LABS: BASO # 0.02 K/mm3 (0.0-2.0); BASO % 0.4 % (0.0-3.0); EOS # 0.3 (0.0-0.7); EOS % 4.6 % (1.5-5.0); HEMOGLOBIN 10.6 g/dL (14.0-18.0); LYMPH # 2.1 (1.2-3.4); MEAN CELL VOLUME 89.8 fl (80.0-105.0); MEAN CORPUSCULAR HGB CONC 33.4 g/dl (31.0-37.0); MEAN PLATELET VOLUME 10.6 fl (7.0-11.0); MONO # 0.4 (0.1-0.6); MONO % 6.5 % (1.0-6.0); RBC 3.53 10^6/uL (3.5-6.1); RED CELL DISTRIBUTION WIDTH 13.3 % (11.5-14.5); WHITE BLOOD COUNT 5.7 10^3/uL (4.5-11.0)
--- NOTE | 2018-10-27 01:40 | ED PDOC ---
Arrival/HPI - General Chief Complaint: Cough, Cold, Congestion Time Seen by Provider: 10/26/18 23:00 Historian: Patient, Family - History of Present Illness Narrative History of Present Illness (Text): Abdullahi Brink is a 63 year old male, whose past medical history includes CVA , benign brain tumor and hypertension, who presents to the ED brought in by EMS from home complaining of cough for approximately 1 month. As per patient's daughter, patient has been coughing with phlegm for about 1 month. Daughter also reports hair loss mostly to his head. Daughter states patient has been fine at home, only sent him in for evaluation of cough and hair loss. Patient denies any chest pain, shortness of breath, abdominal pain, headache, or any other complaints. Time/Duration: > month Symptom Onset: Gradual Symptom Course: Unchanged Activities at Onset: Light Context: Home Past Medical History - Provider Review Nursing Documentation Reviewed: Yes Primary Care Physician: Disha Spicer MD - Infectious Disease Hx of Infectious Diseases: None - Tetanus Immunization Tetanus Immunization: Unknown - Cardiac Hx Cardiac Disorders: Yes Hx Hypertension: Yes Hx Peripheral Edema: Yes - Pulmonary Hx Respiratory Disorders: No - Neurological Hx Neurological Disorder: Yes HX Cerebrovascular Accident: Yes (2017 left side weakness) Hx Seizures: Yes Hx Transient Ischemic Attacks (TIA): Yes Other/Comment: r frontal craniotomy benign brain tumor 2009, speech impediment - HEENT Hx HEENT Disorder: Yes (right eye blind, retinal problem) Other/Comment: unknown r eye procedure, speech impediment - Renal Hx Renal Disorder: No - Endocrine/Metabolic Hx Endocrine Disorders: Yes Hx Diabetes Mellitus Type 2: Yes - Hematological/Oncological Hx Blood Disorders: No - Integumentary Hx Dermatological Disorder: Yes Other/Comment: stage 2 pressure ulcer 1cm x 1.2cm wound bed red surounded by pink skin, left shoulder mole, dry flakey skin ble and b/l feet, discolored brown skin rle, thick dry toenails both feet, dry skin both arms - Musculoskeletal/Rheumatological Hx Musculoskeletal Disorders: Yes Hx Falls: Yes (Recent fall in 2019) - Gastrointestinal Hx Gastrointestinal Disorders: Yes Hx Gall Bladder Disease: Yes (gallstones) - Genitourinary/Gynecological Hx Genitourinary Disorders: Yes Hx Incontinence: Yes (urine and stool) Hx Sexually Transmitted Diseases: No - Psychiatric Hx Psychophysiologic Disorder: Yes (suicidal ideation) Hx Anxiety: Yes Hx Depression: Yes Hx Physical Abuse: No Hx Sexual Abuse: No Hx Substance Use: No - Surgical History Hx Tonsillectomy: Yes Other/Comment: tonsillectomy, r frontal craniotomy benign brain tumor 2010, unknown r eye procedure - Anesthesia Hx Anesthesia: Yes Hx Anesthesia Reactions: Yes (vomiting) Hx Malignant Hyperthermia: No - Suicidal Assessment Feels Threatened In Home Enviroment: No Family/Social History - Physician Review Nursing Documentation Reviewed: Yes Family/Social History: Unknown Family HX Smoking Status: Never Smoked Hx Alcohol Use: No Hx Substance Use: No Hx Substance Use Treatment: No Allergies/Home Meds Allergies/Adverse Reactions: Allergies No Known Allergies Allergy (Verified 09/22/18 18:01) Home Medications: Home Meds Medication Instructions Recorded Confirmed Divalproex [Depakote DR] 500 mg PO BID 04/14/17 08/27/18 Docusate [Colace] 100 mg PO HS 06/07/17 08/27/18 Dorzolamide 2% [Trusopt] 1 drop OU TID 07/27/17 08/27/18 Carvedilol [Coreg] 6.25 mg PO BID 08/27/18 08/27/18 Esomeprazole Magnesium [Nexium] 40 mg PO DAILY 08/27/18 08/27/18 Famotidine [Pepcid] 20 mg PO BID 08/27/18 08/27/18 Insulin Aspart, Recombinant 16 unit SC TID 08/27/18 08/27/18 [Novolog] Insulin Glargine,Hum.rec.anlog 30 unit SQ HS 08/27/18 08/27/18 [Basaglar Kwikpen U-100] Losartan [Cozaar] 100 mg PO DAILY 08/27/18 08/27/18 Multimineral/Multivitamin 1 tab PO DAILY 08/27/18 08/27/18 [Therapeutic-M Tab] OXcarbazepine [Trileptal] 150 mg PO BID 08/27/18 08/27/18 Risperidone [Risperdal] 2 tab PO BID 08/27/18 08/27/18 SITagliptin [Januvia] 100 mg PO BID 08/27/18 08/27/18 Sertraline [Zoloft] 50 mg PO DAILY 08/27/18 08/27/18 amLODIPine [Norvasc] 10 mg PO DAILY 08/27/18 08/27/18 metFORMIN [glucOPHAGE] 500 mg PO BIDWM 08/27/18 08/27/18 Review of Systems - Physician Review All systems were reviewed & negative as marked: Yes - Review of Systems Constitutional: Normal. absent: Fevers Eyes: Normal ENT: Normal Respiratory: Cough, Sputum. absent: SOB Cardiovascular: Normal. absent: Chest Pain, Palpitations Gastrointestinal: Normal. absent: Abdominal Pain, Diarrhea, Nausea, Vomiting Genitourinary Male: Normal. absent: Hematuria Musculoskeletal: Normal. absent: Arthralgias, Back Pain, Neck Pain Skin: Normal. absent: Rash Neurological: Normal. absent: Headache, Dizziness Psychiatric: absent: Anxiety, Depression Physical Exam Vital Signs Reviewed: Yes Vital Signs Temp Pulse Resp BP Pulse Ox 10/26/18 23:05 98.5 F 78 18 153/93 H 96 Temperature: Afebrile Blood Pressure: Hypertensive Pulse: Regular Respiratory Rate: Normal Appearance: Positive for: Well-Appearing, Non-Toxic, Comfortable Pain Distress: None Mental Status: Positive for: Alert and Oriented X 3 Finger Stick Blood Glucose: 117 - Systems Exam Head: Present: Atraumatic, Normocephalic Pupils: Present: PERRL Extroacular Muscles: Present: EOMI Conjunctiva: Present: Normal Mouth: Present: Moist Mucous Membranes Neck: Present: Normal Range of Motion. No: Meningeal Signs, MIDLINE TENDERNESS, Paraspinal Tenderness Respiratory/Chest: Present: Clear to Auscultation, Good Air Exchange. No: Respiratory Distress, Accessory Muscle Use Cardiovascular: Present: Regular Rate and Rhythm, Normal S1, S2. No: Murmurs Abdomen: No: Tenderness, Distention, Peritoneal Signs Upper Extremity: Present: Normal Inspection. No: Cyanosis, Edema Lower Extremity: Present: Normal Inspection. No: Edema Neurological: Present: GCS=15, CN II-XII Intact, Speech Normal Skin: Present: Warm, Dry, Normal Color. No: Rashes Psychiatric: Present: Alert, Oriented x 3, Normal Insight, Normal Concentration Medical Decision Making ED Course and Treatment: Impression: 63 year old male brought in by EMS for cough and hair loss for 1 month. Plan: -- EKG -- Chest X-ray -- CBC, CMP -- BNP -- VBG -- UA -- Reassess and disposition Prior Visits: Notes and results from previous visits were reviewed. Progress Notes: cbc; wnl cmp; wnl lactate; 3.5 trop;w nl bnp; wnl ekg; normal sinus rhythm at 76 bpm normal axis no ST elevations QTC 445 pt without sirs criteria. cxr; no infiltrate. 10/27/18 02:[address] Naylor; will admit observational status for cough and elevated lactic acid; He would like dr. oneal for cough and dr. Crews for elevated lactic acid Pt started on 50cc/hr NS. impression; cough, lactic acid elevated admit obs. med/surg - RAD Interpretation Radiology Orders: 10/27/18 00:45 CHEST PORTABLE [RAD] Stat - Scribe Statement The provider has reviewed the documentation as recorded by the Scribpaige Wang Provider Scribe Attestation: All medical record entries made by the Scribe were at my direction and personally dictated by me. I have reviewed the chart and agree that the record accurately reflects my personal performance of the history, physical exam, medical decision making, and the department course for this patient. I have also personally directed, reviewed, and agree with the discharge instructions and disposition. Disposition/Present on Arrival - Present on Arrival Any Indicators Present on Arrival: No History of DVT/PE: No History of Uncontrolled Diabetes: No Urinary Catheter: No History of Decub. Ulcer: No History Surgical Site Infection Following: None - Disposition Have Diagnosis and Disposition been Completed?: Yes Diagnosis: Cough, Lactic acid increased Disposition: HOSPITALIZED Disposition Time: 02:43 Patient Plan: Observation Patient Problems: Current Active Problems Problem Status Onset Cough Acute Lactic acid increased Acute Condition: FAIR Referrals: Disha Spicer MD [Primary Care Provider] - Follow up with primary Forms: [employer] (Turkish)
[2018-10-27 01:46] LABS: VENOUS BLOOD GAS BASE EXCESS 1.5 mmol/L (0.0-2.0); VENOUS BLOOD GAS PO2 125 mm/Hg (30-55); VENOUS BLOOD PH 7.38 (7.32-7.43)
[2018-10-27 01:51] LABS: ALB/GLOB RATIO 1.4 (1.1-1.8); ALBUMIN 3.8 g/dL (3.0-4.8); ALT/SGPT 14 U/L (7-56); AST/SGOT 17 U/L (17-59); BLOOD UREA NITROGEN 29 mg/dL (7-21); CALCIUM 9.3 mg/dL (8.4-10.5); GFR NON-AFRICAN AMERICAN > 60
[2018-10-27 02:04] LABS: B-TYPE NATRIURETIC PEPTIDE 187 pg/mL (0-450); TROPONIN I < 0.01 ng/mL
[2018-10-27 02:42] LABS: URINE BILIRUBIN NEGATIVE (NEGATIVE); URINE BLOOD NEGATIVE (NEGATIVE); URINE GLUCOSE (UA) NEGATIVE (NEGATIVE); URINE LEUKOCYTE ESTERASE NEGATIVE Leu/uL (NEGATIVE); URINE PROTEIN TRACE mg/dL (<30 mg/dL); URINE UROBILINOGEN 0.2 E.U./dL (<1 E.U./dL)
[2018-10-27 02:50] LABS: URINE APPEARANCE CLEAR (CLEAR); URINE COLOR YELLOW (YELLOW)
[2018-10-27 02:58] LABS: URINE BACTERIA RARE /hpf; URINE EPITHELIAL CELLS 0 - 2 /hpf (0-5); URINE HYALINE CAST 0 - 2 /hpf; URINE RBC 0 - 2 /hpf (0-2); URINE WBC 0 - 2 /hpf (0-6)
[2018-10-27] MEDS: Sodium Chloride 0.9% 250 ML IV SCH ×2 (03:11→21:51)
[2018-10-27] MEDS ORDERED: Pneumococcal 23-Valent Vaccine IM ONE (06:50)
[2018-10-27 08:13] LABS: VENOUS BLOOD GAS BASE EXCESS 0.9 mmol/L (0.0-2.0); VENOUS BLOOD GAS PO2 111 mm/Hg (30-55); VENOUS BLOOD PH 7.34 (7.32-7.43)
[2018-10-27] MEDS ORDERED: Insulin Lispro 1 UNITS/0.01 ML SC SCH (10:00)
--- NOTE | 2018-10-27 10:48 | CARD ---
APPROVED REPORT Date of service: 10/27/2018 EKG Measurement Heart [id number] <Conclusion> Normal sinus rhythm Normal ECG
[2018-10-27] MEDS: guaiFENesin 600 mg ER Tab PO SCH ×2 (10:57→21:52)
[2018-10-27] MEDS: Pantoprazole 40 mg EC Tab PO SCH (10:57)
[2018-10-27] MEDS: Multivitamin With Minerals Tab PO SCH (10:58)
[2018-10-27] MEDS: Divalproex 500 mg DR(BID formulation) PO SCH ×2 (10:58→18:37)
[2018-10-27] MEDS: Insulin Lispro 1 UNITS/0.01 ML SC SCH ×2 (12:34→18:32)
[2018-10-27] MEDS: Dorzolamide 2% Opht Sol 10ml OU SCH ×3 (12:34→18:39)
--- NOTE | 2018-10-27 12:34 | RAD ---
Date of service: 10/27/2018 HISTORY: Cough COMPARISON: 09/22/2018. FINDINGS: LUNGS: No active pulmonary disease. PLEURA: No significant pleural effusion identified, no pneumothorax apparent. CARDIOVASCULAR: No atherosclerotic calcification present Normal. OSSEOUS STRUCTURES: No significant abnormalities. VISUALIZED UPPER ABDOMEN: Normal. OTHER FINDINGS: None. IMPRESSION: No active pulmonary disease. No significant interval change compared to the prior examination(s).
--- NOTE | 2018-10-27 12:46 | CP.PCM.APN ---
Subjective - Date & Time of Evaluation Date of Evaluation: 10/27/18 Time of Evaluation: 12:00 - Subjective Subjective: Pt seen and examined at bedside. Denies cough, or shortness of breath. In no acute distress. Objective - Vital Signs/Intake and Output Vital Signs (last 24 hours): Temp Pulse Resp BP Pulse Ox 98.3 F 98 H 18 148/83 97 10/27/18 06:00 10/27/18 11:00 10/27/18 06:39 10/27/18 11:00 10/27/18 06:00 - Medications Medications: Current Medications Amlodipine Besylate (Norvasc) 10 mg PO DAILY [facility] Last Admin: 10/27/18 11:00 Dose: 10 mg Arformoterol Tartrate (Brovana) 15 mcg IH [id number] [facility] Aspirin (Aspirin Chewable) 81 mg PO DAILY [facility] Last Admin: 10/27/18 10:58 Dose: 81 mg Atorvastatin Calcium (Lipitor) 10 mg PO DAILY [facility] Last Admin: 10/27/18 10:58 Dose: 10 mg Azithromycin (Zithromax) 500 mg PO DAILY [facility]; Protocol Budesonide (Pulmicort Respules) 0.5 mg IH [id number] [facility] Carvedilol (Coreg) 6.25 mg PO BID [facility] Last Admin: 10/27/18 11:00 Dose: 6.25 mg Divalproex Sodium (Depakote Dr(*Bid*)) 500 mg PO BID [facility] Last Admin: 10/27/18 10:58 Dose: 500 mg Docusate Sodium (Colace) 100 mg PO [facility] Dorzolamide HCl (Trusopt) 0 ml OU TID [facility] Last Admin: 10/27/18 12:34 Dose: 1 drop Enoxaparin Sodium (Lovenox) 40 mg SC DAILY [facility]; Protocol Famotidine (Pepcid) 20 mg PO BID [facility] Last Admin: 10/27/18 10:58 Dose: 20 mg Guaifenesin (Mucinex La) 600 mg PO Q12H [facility] Last Admin: 10/27/18 10:57 Dose: 600 mg Sodium Chloride (Sodium Chloride 0.9%) 250 mls @ 50 mls/hr IV .Q5H [facility] Last Admin: 10/27/18 03:11 Dose: 50 mls/hr Insulin Detemir (Levemir) 30 unit SC [facility] Insulin Human Lispro (Humalog) 16 units SC AC [facility] Last Admin: 10/27/18 12:34 Dose: 16 units Latanoprost (Xalatan Opht) 0 ml OU HS [facility] Losartan Potassium (Cozaar) 100 mg PO DAILY [facility] Last Admin: 10/27/18 11:01 Dose: 100 mg Metformin HCl (Glucophage) 500 mg PO BIDWM [facility] Methylprednisolone (Solu-Medrol) 20 mg IVP Q12 [facility] Multivitamins/Minerals (Therapeutic-M Tab) 1 tab PO DAILY [facility] Last Admin: 10/27/18 10:58 Dose: 1 tab Oxcarbazepine (Trileptal) 300 mg PO BID [facility]; Protocol Last Admin: 10/27/18 10:57 Dose: 300 mg Pantoprazole Sodium (Protonix Ec Tab) 40 mg PO 0600 [facility] Last Admin: 10/27/18 10:57 Dose: 40 mg Risperidone (Risperdal Tab) 0.5 mg PO HS [facility]; Protocol Risperidone (Risperdal Tab) 0.5 mg PO BID [facility]; Protocol Last Admin: 10/27/18 11:01 Dose: 0.5 mg Sertraline HCl (Zoloft) 50 mg PO DAILY [facility] Last Admin: 10/27/18 10:59 Dose: 50 mg Sitagliptin Phosphate (Januvia) 50 mg PO DAILY [facility] Last Admin: 10/27/18 10:59 Dose: 50 mg - Labs Labs: 10/27/18 01:13 10/27/18 01:13 - Constitutional Appears: No Acute Distress - Respiratory Exam Respiratory Exam: NORMAL BREATHING PATTERN - Cardiovascular Exam Cardiovascular Exam: REGULAR RHYTHM, +S1, +S2 - GI/Abdominal Exam GI & Abdominal Exam: Soft, Normal Bowel Sounds - Neurological Exam Neurological Exam: Alert, Awake, Oriented x3 Assessment and Plan - Assessment and Plan (Free Text) Assessment: Pt is a 63 y.o. male w/ pmhx of CVA , benign brain tumor and hypertension who presented in ED for cough x 1month. Per RN, pt received Mucinex today and has not been coughing since then. ITS Impressions Chest X-Ray 10/27/18 00:45 IMPRESSION: No active pulmonary disease. No significant interval change compared to the prior examination(s). Plan: On Zithromax PO and Solumedrol per pulm recs ID and pulm on consult Pending CT chest/neck per pulm Pending Ct sinuses per ID Meds per MAR Will continue to follow
--- NOTE | 2018-10-27 13:23 | CON ---
DATE: 10/27/2018 PULMONARY CONSULTATION NOTE REFERRING PHYSICIAN: Carmelo Naylor DO REASON FOR CONSULTATION: Cough. HISTORY OF PRESENT ILLNESS: This is a 63-year-old male with past medical history significant for CVA, benign brain tumor, hypertension, seizure disorder, history of falls who presented to the emergency room reporting cough for 1 month. While in the emergency room, the patient reported that the patient has had cough with phlegm for about 1 month, also reports that he has had hair loss mainly to his head. Today, the patient seen lying in bed. States that he does have productive cough. He does have periods of shortness of breath, denies any nasal congestion, abdominal pain, headaches. PAST MEDICAL HISTORY: CVA with left-sided weakness, benign brain tumor with frontal craniotomy in 2009, hypertension, arthritis, history of falls, gait instability, pressure ulcers, gallstones, incontinence of urine, suicidal ideation in the past, anxiety, and depression, seizure disorders, right eye blindness. FAMILY HISTORY: No significant cardiopulmonary disease reported. SOCIAL HISTORY: Non smoker. No EtOH abuse. No illicit drug use. ALLERGIES: NO KNOWN DRUG ALLERGIES. MEDICATIONS: Reviewed. Norvasc 10 mg daily, aspirin 81 mg daily, Lipitor 10 mg daily, Coreg 6.25 mg twice a day, Depakote 500 mg twice a day, Colace 100 mg at bedtime, Trusopt 3 times a day, Pepcid 20 mg twice a day, Mucinex 600 mg every 12 hours, Levemir 30 units subcutaneously at bedtime, Humalog 16 units subcutaneously a.c., latanoprost eye drops at bedtime, Cozaar 100 mg daily, metformin 500 mg twice day with meals, multivitamins with minerals one tab daily, Trileptal 300 mg twice a day, Protonix 40 mg daily, Risperdal 0.5 mg twice a day, Risperdal 0.5 mg at bedtime, Zoloft 50 mg daily, Januvia 50 mg daily, sodium chloride 0.9% 250 mL at 50 mL per hour. REVIEW OF SYSTEMS: No headache, rhinitis, nasal congestion, chest pain, abdominal pain, nausea, vomiting, diarrhea, leg pain or leg swelling reported. The patient reports having left-sided weakness, shortness of breath at times, productive cough. PHYSICAL EXAMINATION: GENERAL: No acute distress. VITAL SIGNS: Blood pressure 133/73, pulse 74, temperature 98.3 and oxygen saturation 97% on room air. HEENT: Moist mucous membranes. Mallampati score of 4. Edentulous. NECK: Supple. No JVD. CARDIOVASCULAR: S1 and S2. RESPIRATORY: Decreased breath sounds at bases. ABDOMEN: Soft and nontender. No distention. No organomegaly. EXTREMITIES: No bilateral lower extremity edema. Left side weakness. NEUROLOGIC: Awake, alert and verbal. LABORATORY DATA: Reviewed. WBC 5.7, RBC 3.53, hemoglobin 10.6, hematocrit 31.7 and platelets 207. PO2 111, venous blood gas pH 7.34, venous blood gas PCO2 51, venous blood gas HCO3 27.5 on FIO2 21. Sodium 141, potassium 4.3, chloride 103, carbon dioxide 26, anion gap 17, BUN 29, creatinine 0.8, GFR greater than 60, POC glucose 126, random glucose 118, calcium 9.3, total bilirubin 0.3, AST 17, ALT 14, alkaline phosphatase 59, lactate dehydrogenase 352, total creatine kinase 69, troponin less than 0.01, proBNP 187, total protein 6.5, albumin 3.8, globulin 2.7, albumin-globulin ratio of 1.4, venous blood potassium 4.5. Urinalysis shows urine protein trace, urine ketone trace. EKG shows normal sinus rhythm. Chest x-ray report pending. IMPRESSION AND PLAN: Possible acute bronchitis with persistent cough, need to rule out aspiration could be viral related. We will order procalcitonin to rule out pneumonia, although chest x-ray per ER now shows no infiltrate. We will order speech therapy, swallow evaluation rule out aspiration, head of bed elevated at 45 degrees. We will order CT scan of the neck and chest without contrast due to persistent cough to rule out any lesions. We will add inhaled bronchodilators, Brovana and Pulmicort. We will send anemia workup to be done. We will place the patient on deep venous thrombosis prophylaxis, Lovenox 40 mg subcutaneously daily. We will place the patient on Zithromax 500 mg daily and Solu-Medrol 20 mg every 12 hours. Continue gastric prophylaxis. We suspect the patient may have sleep apnea due to the history of cerebrovascular accident need to rule out sleep apnea. Recommend sleep study as outpatient. This patient was seen and examined with Dr. Mathew. Discussed assessment and plan as described above. This patient was seen and examined with Alvarez Plata, nurse practitioner. Discussed assessment and plan as described above. Thank you for this consult and we will follow with you. Alvarez Plata APN Kirk Mathew MD JENNIFER
--- NOTE | 2018-10-27 13:53 | CT ---
Date of service: 10/27/2018 PROCEDURE: CT SINUSES WITHOUT CONTRAST HISTORY: chronic cough COMPARISON: None available. TECHNIQUE: Contiguous axial CT images of the paranasal sinuses were obtained. Coronal and sagittal reformats were generated. Radiation dose: Total exam DLP = 747.63 mGy-cm. This CT exam was performed using one or more of the following dose reduction techniques: Automated exposure control, adjustment of the mA and/or kV according to patient size, and/or use of iterative reconstruction technique. FINDINGS: FRONTAL SINUSES: Clear. ETHMOID SINUSES: Clear. SPHENOID SINUSES: Clear. MAXILLARY SINUSES: Clear. SINUS DRAINAGE: Osteomeatal complexes, frontal recesses and sphenoethmoid recesses clear. NASAL SEPTUM: No significant deviation. No destructive lesion. MASS: None. SKULL BASE: Previous right frontal craniotomy. TEMPORAL BONES: Middle ears and mastoid grossly unremarkable. OTHER FINDINGS: There is calcification and collapse of the right globe. IMPRESSION: Unremarkable non contrast enhanced CT of the sinuses.
--- NOTE | 2018-10-27 13:56 | CT ---
Date of service: 10/27/2018 PROCEDURE: CT NECK WITHOUT CONTRAST HISTORY: persistent cough COMPARISON: None available. TECHNIQUE: CT of the neck without intravenous contrast. Coronal and sagittal reformats generated. Radiation dose: Total exam DLP = 422.07 mGy-cm. This CT exam was performed using one or more of the following dose reduction techniques: Automated exposure control, adjustment of the mA and/or kV according to patient size, and/or use of iterative reconstruction technique. FINDINGS: NASOPHARYNX: Unremarkable. SUPRAHYOID NECK: Unremarkable oropharynx, oral cavity, parapharyngeal space and retropharyngeal space. INFRAHYOID NECK: Unremarkable larynx, hypopharynx, and supraglottic space. Vocal cords intact. MASS: None. GLANDS: Parotid and submandibular glands unremarkable. Normal size thyroid gland, without nodule. LYMPH NODES: Normal. No lymphadenopathy. CERVICAL SPINE: There is ossification of the posterior longitudinal ligament from C2 through C4. Multilevel degenerative changes OTHER FINDINGS: None. IMPRESSION: No acute findings in the neck. Severe chronic degenerative changes in the cervical spine.
--- NOTE | 2018-10-27 14:00 | CT ---
Date of service: 10/27/2018 PROCEDURE: CT Chest without contrast HISTORY: PERSISTANT COUGH COMPARISON: 09/22/2018 TECHNIQUE: Contiguous axial images were obtained through the chest without intravenous contrast enhancement. Sagittal and coronal reconstructions were performed. Radiation dose: Total exam DLP = 368.12 mGy-cm. This CT exam was performed using one or more of the following dose reduction techniques: Automated exposure control, adjustment of the mA and/or kV according to patient size, and/or use of iterative reconstruction technique. FINDINGS: LUNGS: Clear lungs. Visualized airway clear MEDIASTINUM: Unremarkable thoracic aorta. No aneurysm. Normal sized heart. Main pulmonary artery unremarkable. No vascular congestion. No lymphadenopathy. Minimal aortic calcification. Coronary artery calcification. PLEURA: No pleural fluid. No pneumothorax. BONES: No fracture. No destructive lesion. UPPER ABDOMEN: Grossly unremarkable. OTHER FINDINGS: None. IMPRESSION: No evidence of pneumonia
--- NOTE | 2018-10-27 18:47 | HP ---
HISTORY OF PRESENT ILLNESS: I have known Abdullahi for many years. I got a call last night at 1:00 in the morning from one of the family members that he had hair loss and also he is coughing and wanted to know how I could treat it at 1:00 in the morning and I did not know to answer that question at 1:00 in the morning, eventually admitted to the emergency room and now he is admitted with a cough. He is a 63-year-old white man who I know from house calls, who was bedridden from an old CVA, benign brain tumor which was surgically removed, he has hypertension, he is very pleasant, so now he has been coughing for a month as per the daughter, lots of phlegm, but also he is getting hair loss on his head and wants that to stop. I am not sure what to do about that one at this time. He has a big medical history, he has hypertension, peripheral edema. He has left-sided weakness from a stroke. He has been bedridden for years. He has a seizure history, TIAs, right frontal craniotomy, benign brain tumor in 2010. He has a speech impediment. His right eye is blind, he has a retinal problem. He has some right eye procedure, he has diabetes, stage 2 pressure ulcer 1 x 1.2 cm. He basically lays flat in bed most the time despite being told many times to rotate around every 2 hours. He has had recent falls. Actually, in the past month, he fell out of bed, no apparent injury. He has gallstones, he has had UTIs. He has had blood in the stool and blood in the urine in the past. He does have suicidal ideation from time to time. He has anxiety, depression. He has had tonsillectomy, right frontal craniotomy in 2010 for a benign brain tumor, a right eye procedure. He has had vomiting in the past. FAMILY HISTORY: He has no known family history. SOCIAL HISTORY: No smoking, no drinking. No drugs. ALLERGIES: NO KNOWN DRUG ALLERGIES. MEDICATIONS: He is on a slew of medications; Depakote, Colace, Trusopt, Coreg, Nexium, Pepcid, Novolog insulin, Cozaar, multivitamin, Trileptal, Risperdal, Januvia, Zoloft, Norvasc, and Glucophage. REVIEW OF SYSTEMS: He is pleasant, in bed, in no acute vision or hearing changes, but old, throat is dry. He does have a cough with some sputum, it is clear. No chest pain or palpitations. He has no nausea, vomiting, constipation, or diarrhea. No problems urinating. No back pain or neck pain at this time. He does have left-sided weakness that is old. He does have a sacral ulcer. No rashes, no headache or dizziness. He is anxious from time to time. PHYSICAL EXAMINATION: VITAL SIGNS: He has 98.5 temperature, 78 pulse, 18 respiratory rate, 153/92 blood pressure, and 96% O2 sat. GENERAL: He is well-appearing, nontoxic, comfortable in bed, smiling at me. Alert and oriented x3. Blood sugar is 117. HEENT: He does have a scar on his forehead you could see where the lacerations and the missing part of the skull are on his head. Normocephalic for the most part. Extraocular muscles are intact. He does have a vision issue. Throat is moist. NECK: Supple. No JVD. Thyroid midline. Nontender. LUNGS: Decreased breath sounds. No wheezes, rhonchi or rales. No coughing at this time. HEART: Regular rate. Normal S1, S2. ABDOMEN: Soft, nontender, positive bowel sounds. EXTREMITIES: Left-sided weakness, but no edema. NEUROLOGIC: GCS is 15. Speech impediment. Alert and oriented x3 sometimes. I think he knows where he is today, which is good for him. SKIN: Warm and dry that I could tell. He does have sacral ulcer. LABORATORY DATA: He had multiple tests done. Chest x-ray is pending. He has a 5.7 white count, 10.6 hemoglobin, 31.7 hematocrit with 207 platelets. Lactate was 3.5 and lactate was 3.1. He has a 141 sodium, potassium 4.3, BUN 29, creatinine 0.8, GFR is greater than 60, sugar is 118, calcium is 9.3, total bili is 0.3. AST is 17, ALT is 14, alk phos 59. Lactate dehydrogenase is 352. Troponin I is less than 0.01. BNP is 187, total protein 6.5. Urine was clear. ASSESSMENT AND PLAN: He has consults with Pulmonary. He is on his regular medications plus a cough medication. Physical therapy is ordered. Hopefully, they will get him out of bed to chair. He is in observation. Wait for the chest x-ray. He could possibly be discharged if things go well. The patient is here for cough. Carmelo Naylor DO
[2018-10-27 19:17] LABS: URINE BILIRUBIN NEGATIVE (NEGATIVE); URINE BLOOD NEGATIVE (NEGATIVE); URINE GLUCOSE (UA) NEGATIVE (NEGATIVE); URINE LEUKOCYTE ESTERASE TRACE Leu/uL (NEGATIVE); URINE PROTEIN NEGATIVE mg/dL (<30 mg/dL); URINE UROBILINOGEN 0.2 E.U./dL (<1 E.U./dL)
[2018-10-27 19:19] LABS: URINE APPEARANCE SL CLOUDY (CLEAR); URINE COLOR YELLOW (YELLOW)
[2018-10-27 19:33] LABS: URINE BACTERIA FEW /hpf; URINE EPITHELIAL CELLS 0 - 2 /hpf (0-5)
[2018-10-27] MEDS: Budesonide 0.5 mg/2 ml Inhal Susp UD IH SCH (20:54)
[2018-10-27] MEDS: Arformoterol 15 mcg/2 ml Inh Sol IH SCH (20:55)
[2018-10-27] MEDS: MethylPREDNISolone 40 mg Vial IVP SCH (21:52)
[2018-10-27] MEDS ORDERED: Latanoprost 2.5 ml Opht Soln OU SCH (22:00)
[2018-10-27] MEDS ORDERED: INSULIN GLARGINE HUM REC ANLOG 30 UNIT SQ SCH (22:00)
[2018-10-27] MEDS ORDERED: [UNRECOGNIZED DRUG - OTHER] SQ SCH (22:00)
[2018-10-27] MEDS ORDERED: Insulin Detemir 100 units/ml Vial (Levemir) SC SCH (22:00)
--- NOTE | 2018-10-28 03:14 | CON ---
DATE: 10/27/2018 The patient is seen in room 538, bed 1. CHIEF COMPLAINT: Weakness for several days. HISTORY OF PRESENT ILLNESS: A 63-year-old male with cerebrovascular accident in 08/21 and with residual weakness on the left side with benign brain tumor in 2009, hypertension, dyslipidemia, legally blind with seizures, depression, diabetes, who was admitted with cough and elevated lactic acid level. Infectious Disease consultation requested. The patient denies any fevers, any headaches, no nausea or vomiting. No chest pain. REVIEW OF SYSTEMS: Reveals a 12-point review of systems is performed. PAST MEDICAL HISTORY: Significant for cerebrovascular accident in 2017 with residual left-sided weakness, benign brain tumor in 2009, hypertension, dyslipidemia, legally blind, seizures, depression, diabetes mellitus. PAST SURGICAL HISTORY: Significant for [employer] brain resection and tonsillectomy. ALLERGIES: THE PATIENT HAS NO KNOWN ALLERGIES. MEDICATIONS AT HOME: Reviewed and noted. PHYSICAL EXAMINATION: GENERAL: The patient is in bed, appearing chronically ill, weak with temperature of 98, blood pressure is 130/80, respiratory rate of 18, heart rate of 98. BMI is 20. HEENT: Unremarkable. NECK: Supple. LUNGS: Have decreased breath sounds. HEART: Normal S1, S2. ABDOMEN: Soft, nontender. LABORATORY EXAMINATION: Reveals a white count of 5.7, hemoglobin of 10, platelets of 201. BUN of 29, creatinine of 0.8, glucose is 118. Urinalysis is noted. Microbiology is pending. ASSESSMENT AND PLAN: A 63-year-old male with cerebrovascular accident, benign brain tumor, hypertension, dyslipidemia. 1. Chronic cough secondary to gastroesophageal reflux disease. Ordered a sinus CAT scan, which is unremarkable for any sinusitis and a CAT scan of the chest, which showed no evidence of pneumonia.. The patient also had a CAT scan of the neck with no acute findings. The patient does have elevated lactic acid. Chest x-ray is reported to be negative. We will check on the panculture results. The patient does not appear toxic. We will hold off any antibiotics. We will check on procalcitonin with a negative CAT scan of the chest. We will hold off any antibiotics. We will continue to follow with you. Favio Crews MD
[2018-10-28] MEDS: Pantoprazole 40 mg EC Tab PO SCH (05:56)
[2018-10-28 08:06] LABS: HEMOGLOBIN 9.4 g/dL (14.0-18.0); MEAN CELL VOLUME 88.8 fl (80.0-105.0); MEAN CORPUSCULAR HEMOGLOBIN 30.1 pg (25.0-35.0); MEAN CORPUSCULAR HGB CONC 33.9 g/dl (31.0-37.0); MEAN PLATELET VOLUME 9.8 fl (7.0-11.0); RBC 3.12 10^6/uL (3.5-6.1); RED CELL DISTRIBUTION WIDTH 13.1 % (11.5-14.5); WHITE BLOOD COUNT 5.4 10^3/uL (4.5-11.0)
[2018-10-28 08:13] LABS: IRON 67 ug/dL (45-180)
[2018-10-28 08:23] LABS: % IRON SATURATION 26 % (20-55); TOTAL IRON BINDING CAPACITY 253 ug/dL (261-462)
[2018-10-28 08:24] LABS: ALB/GLOB RATIO 1.3 (1.1-1.8); ALBUMIN 3.1 g/dL (3.0-4.8); ALT/SGPT 14 U/L (7-56); AST/SGOT 17 U/L (17-59); BLOOD UREA NITROGEN 21 mg/dL (7-21); CALCIUM 8.7 mg/dL (8.4-10.5); GFR NON-AFRICAN AMERICAN > 60
[2018-10-28] MEDS: Budesonide 0.5 mg/2 ml Inhal Susp UD IH SCH (08:42)
[2018-10-28] MEDS: Arformoterol 15 mcg/2 ml Inh Sol IH SCH (08:42)
[2018-10-28] MEDS: Insulin Lispro 1 UNITS/0.01 ML SC SCH ×3 (08:49→17:10)
[2018-10-28] MEDS: MethylPREDNISolone 40 mg Vial IVP SCH (09:25)
[2018-10-28] MEDS: Divalproex 500 mg DR(BID formulation) PO SCH ×2 (09:27→18:26)
[2018-10-28] MEDS: Multivitamin With Minerals Tab PO SCH (09:27)
[2018-10-28] MEDS: guaiFENesin 600 mg ER Tab PO SCH ×2 (09:28→18:26)
[2018-10-28] MEDS: Dorzolamide 2% Opht Sol 10ml OU SCH ×3 (09:30→18:25)
[2018-10-28] MEDS ORDERED: Enoxaparin 40 mg Syringe SC SCH (10:00)
[2018-10-28 12:34] LABS: FERRITIN 64.8 ng/mL
[2018-10-28 13:04] LABS: FOLATE 9.8 ng/mL
--- NOTE | 2018-10-28 13:18 | PN ---
DATE: 10/28/2018 PULMONARY PROGRESS NOTE REFERRING PHYSICIAN: Carmelo Naylor DO SUBJECTIVE: The patient is seen sitting up in bed. No acute distress. No overnight events reported. The patient reports that he is feeling well today. No headache, rhinitis, cough, shortness of breath, chest pain, abdominal pain, nausea, vomiting, diarrhea, leg pain or leg swelling reported. OBJECTIVE: GENERAL: No acute distress. VITAL SIGNS: Blood pressure 124/77, pulse 83, temperature 98 and oxygen saturation 95% on room air. HEENT: Moist mucous membranes. Mallampati score of 4. Edentulous. NECK: Supple. No JVD. CARDIOVASCULAR: S1 and S2. ABDOMEN: Soft and nontender. No distention. No organomegaly. RESPIRATORY: Decreased breath sounds at bases. EXTREMITIES: No bilateral lower extremity edema. Left sided weakness. NEUROLOGIC: Awake, alert and verbal. MEDICATIONS: Reviewed. Norvasc 10 mg daily, Brovana 15 mcg inhalation every 12 hours, aspirin 81 mg daily, Lipitor 10 mg daily, Zithromax 500 mg daily, Pulmicort 0.5 mg inhalation every 12 hours, Coreg 6.25 mg at bedtime, Depakote 500 mg twice a day, Colace 100 mg at bedtime, Trusopt eye drops 3 times a day, Lovenox 40 mg subcutaneously daily, Pepcid 20 mg twice a day, Mucinex 600 mg every 12 hours, Levemir 30 units subcutaneously at bedtime, Humalog 16 units subcutaneously a.c., latanoprost eye drops at bedtime, Cozaar 100 mg daily, metformin 500 mg twice day, Solu-Medrol 20 mg IV push every 12 hours, multivitamin with minerals one tab daily, Trileptal 300 mg twice a day, Protonix 40 mg daily, risperidone 0.5 mg twice a day, Risperdal 0.5 mg at bedtime, Zoloft 50 mg daily, Januvia 50 mg daily, sodium chloride 0.9% 250 mL at 50 mL per hour. LABORATORY DATA: Reviewed. WBC 5.4, RBC 3.12, hemoglobin 9.4, hematocrit 27.7 and platelets 162. Sodium 133, potassium 4.3, chloride 100, carbon dioxide 26, anion gap 12, BUN 21, creatinine 0.8, GFR greater than 60, POC glucose 199, random glucose 164, calcium 8.7. Iron 67, TIBC 253, percent saturation 26, total bilirubin 0.2, AST 17, ALT 14, alkaline phosphatase 51, total protein 5.6, albumin 3.1, globulin 2.4, albumin-globulin ratio of 1.3. Urinalysis; urine leukocyte esterase trace. Urine RBC is 123. HIV nonreactive. Soft tissue neck CT, no acute findings in the neck just severe chronic degenerative changes in the cervical spine. Chest CT shows no evidence of pneumonia. Sinus CT unremarkable. IMPRESSION AND PLAN: Chronic cough, possibly secondary to gastroesophageal reflux disease or some component of aspiration. The patient is on modified diet was seen by speech therapy who determined that there was no overt sign of symptoms of dysphagia with a modified diet. Continue aspiration precautions. Head of bed elevated at 45 degrees. CAT scan of sinuses neck and chest, negative. We do suspect the patient may have sleep apnea syndrome may need to rule out sleep apnea with outpatient sleep study. Procalcitonin is still pending, if negative, Zithromax can be discontinued. At this time, continue deep venous thrombosis prophylaxis, gastric prophylaxis, inhaled bronchodilators. This patient was seen and examined with Dr. Mathew. Discussed assessment and plan as described above. This patient was seen and examined with Alvarez Plata, nurse practitioner. Discussed assessment and plan as described above. Thank you for this consult and we will follow with you. Alvarez Plata APN Kirk Mathew MD
[2018-10-28 15:56] VITALS: PULSE 88; RESP 19; TEMP 98.3; O2SAT 96
[2018-10-28 18:33] VITALS: BP 116/74
--- NOTE | 2018-10-29 06:15 | DS ---
HISTORY OF PRESENT ILLNESS: He is doing quite well this morning. He is breathing well. No chest pain. No shortness of breath. He is eating well. He will be going home today. We have stopped the IV Solu-Medrol and I will put him on prednisone 30 for 3 days, 20 for 3 days, 10 for 3 days and stop. We stop the Zithromax, Lovenox, and go back on his regular medications. PHYSICAL EXAMINATION: VITAL SIGNS: He has a 98 temp, 83 pulse, 124/77 blood pressure, 18 respiratory rate, and 95% O2 sat on room air. HEENT: Head is atraumatic and normocephalic. HEART: Regular rate. LUNGS: Decreased breath sounds, but clear. ABDOMEN: Soft. EXTREMITIES: No edema. LABORATORY DATA: He has a white count of 5.4, hemoglobin of 9.4, hematocrit of 27.7, and platelets of 162. He has a sodium 133, potassium 4.3, BUN 21, creatinine 0.8, GFR is greater than 60, sugar is 164, calcium is 8.7, he has a total bili is 0.2, AST is 17, alk phos 14, and total protein is 61. ASSESSMENT AND PLAN: Overall, he did well. He will be discharge today and I will followup on house call. CAT scan of the chest is negative. CT scan of the chest is negative. CAT scan of the sinuses were negative. We will continue aggressive treatment and care house calls at home. Carmleo Naylor DO MTDD
--- NOTE | 2018-10-31 08:54 | PN ---
DATE: 10/28/2018 SUBJECTIVE: The patient is in bed, in no acute distress, nontoxic. No fevers. PHYSICAL EXAMINATION: VITAL SIGNS: Temperature is 98, blood pressure is 115/70, respiratory rate of 18. HEENT: Unremarkable. NECK: Supple. LUNGS: Have decreased breath sounds. HEART: Normal S1 and S2. ABDOMEN: Soft. LABORATORY EXAMINATION: Reveals a white count of 5.7. Chemistries are noted. Urinalysis is reviewed. Procalcitonin 0.10. HIV is negative. Blood cultures showed no growth. Review of orders are noted. ASSESSMENT AND PLAN: A 63-year-old male who was seen earlier this morning in room 578, bed 1 who was comfortable who has a chronic cough secondary to gastroesophageal reflux disease. CT of the spine is negative. CT of the chest is negative. No evidence of infection. We will keep the patient off the antibiotics. The patient's case discussed with Dr. Carmelo Naylor. Favio Crews MD
== END 2018-10-28 20:35 | disposition home health service (06) ==
LOC: ED 22:55 → ERH 10-27 02:34 → 5RSO 10-27 04:44
PROVIDERS: ADMIT Family Medicine; ATTEND Family Medicine
DX: K21.9 Gastro-esophageal reflux disease without esophagitis (principal); R05 Cough; R06.02 Shortness of breath; I69.354 Hemiplegia and hemiparesis following cerebral infarction affecting left non-dominant side; L89.152 Pressure ulcer of sacral region, stage 2; E11.9 Type 2 diabetes mellitus without complications; I10 Essential (primary) hypertension; H54.61 Unqualified visual loss, right eye, normal vision left eye; E78.5 Hyperlipidemia, unspecified; K80.20 Calculus of gallbladder without cholecystitis without obstruction; F32.9 Major depressive disorder, single episode, unspecified; F41.9 Anxiety disorder, unspecified; G40.909 Epilepsy, unspecified, not intractable, without status epilepticus; R74.0 Nonspecific elevation of levels of transaminase and lactic acid dehydrogenase [LDH]; Z86.011 Personal history of benign neoplasm of the brain; Z74.01 Bed confinement status; Z79.4 Long term (current) use of insulin
CPT/HCPCS: 36415; 70486; 70490; 71045; 71250; 80053; 81001; 82550; 82607; 82728; 82746; 82803; 82948; 83540; 83550; 83615; 83880; 84145; 84484; 85025; 85027; 87040; 87081; 87389; 92610; 93005; 94640; 94760; 96372; 96374; 96376; 97162; 97530; 99284; G0378; G8978; G8979; G8980; G8996; G8997; G8998; J1650; J2920

== ENCOUNTER 2018-11-22 06:08 | Observation (INO) | payer OTHER ==
--- NOTE | 2018-11-22 06:38 | ED PDOC ---
Arrival/HPI - General Historian: Patient - History of Present Illness Narrative History of Present Illness (Text): 11/22/18 06:25 CC: seizure HPI: 63 yo male w/ PMH of seizures (on Depakote), CVA w/ left hemiparesis w/ contracture, bedbound, HTN, HLD, blind in right eye, h/o brain tumor s/p resection comes to ED via ambulance. Patient is minimally responsive with only yes or no questions. Unknown baseline at home. Patient AAOx2. Patient offers no acute complaints. From collateral via EMS, patient's saw patient having a seizure and called the ambulance. Limited amount of information as patient family not at bedside. Limited ROS as patient answering only yes or no and at times answering incorrectly to questioning. Time/Duration: 4-6 hours Symptom Onset: Sudden Symptom Course: Unchanged Activities at Onset: Rest Context: Sitting <Michela Gooden - Last Filed: 11/22/18 06:24> <James Brewer - Last Filed: 11/22/18 06:56> - General Chief Complaint: Seizure Time Seen by Provider: 11/22/18 06:25 Past Medical History - Provider Review Nursing Documentation Reviewed: Yes - Infectious Disease Hx of Infectious Diseases: None - Tetanus Immunization Tetanus Immunization: Unknown - Cardiac Hx Hypertension: Yes - Pulmonary Hx Respiratory Disorders: No - Neurological HX Cerebrovascular Accident: Yes (L sided weakness) - HEENT Hx HEENT Disorder: Yes (right eye blind, retinal problem) Other/Comment: unknown r eye procedure, speech impediment - Renal Hx Renal Disorder: No - Endocrine/Metabolic Hx Endocrine Disorders: Yes Hx Diabetes Mellitus Type 2: Yes - Hematological/Oncological Hx Blood Disorders: No - Integumentary Hx Dermatological Disorder: Yes Other/Comment: stage 2 pressure ulcer 1cm x 1.2cm wound bed red surounded by pink skin, left shoulder mole, dry flakey skin ble and b/l feet, discolored brown skin rle, thick dry toenails both feet, dry skin both arms - Musculoskeletal/Rheumatological Hx Falls: Yes - Gastrointestinal Hx Gastrointestinal Disorders: Yes Hx Gall Bladder Disease: Yes (gallstones) - Genitourinary/Gynecological Hx Genitourinary Disorders: Yes Hx Incontinence: Yes (urine and stool) Hx Sexually Transmitted Diseases: No - Psychiatric Hx Psychophysiologic Disorder: Yes (suicidal ideation) Hx Anxiety: Yes Hx Depression: Yes Hx Physical Abuse: No Hx Sexual Abuse: No Hx Substance Use: No - Surgical History Other/Comment: tonsillectomy, r frontal craniotomy benign brain tumor 2010, unknown r eye procedure - Anesthesia Hx Anesthesia: Yes Hx Anesthesia Reactions: Yes (vomiting) Hx Malignant Hyperthermia: No - Suicidal Assessment Feels Threatened In Home Enviroment: No <Giacomo,Madaser - Last Filed: 11/22/18 06:24> Family/Social History - Physician Review Nursing Documentation Reviewed: Yes Family/Social History: No Known Family HX Smoking Status: Never Smoked Hx Alcohol Use: No Hx Substance Use: No Hx Substance Use Treatment: No <Giacomo,Madaser - Last Filed: 11/22/18 06:24> Allergies/Home Meds <Giacomo,Madaser - Last Filed: 11/22/18 06:24> <James Brewer - Last Filed: 11/22/18 06:56> Allergies/Adverse Reactions: Allergies No Known Allergies Allergy (Verified 09/22/18 18:01) Home Medications: Home Meds Medication Instructions Recorded Confirmed Divalproex [Depakote DR] 500 mg PO BID 04/14/17 08/27/18 Docusate [Colace] 100 mg PO HS 06/07/17 08/27/18 Dorzolamide 2% [Trusopt] 1 drop OU TID 07/27/17 08/27/18 Carvedilol [Coreg] 6.25 mg PO BID 08/27/18 08/27/18 Esomeprazole Magnesium [Nexium] 40 mg PO DAILY 08/27/18 08/27/18 Famotidine [Pepcid] 20 mg PO BID 08/27/18 08/27/18 Insulin Aspart, Recombinant 16 unit SC TID 08/27/18 08/27/18 [Novolog] Insulin Glargine,Hum.rec.anlog 30 unit SQ HS 08/27/18 08/27/18 [Basaglar Kwikpen U-100] Losartan [Cozaar] 100 mg PO DAILY 08/27/18 08/27/18 Multimineral/Multivitamin 1 tab PO DAILY 08/27/18 08/27/18 [Therapeutic-M Tab] OXcarbazepine [Trileptal] 150 mg PO BID 08/27/18 08/27/18 Risperidone [Risperdal] 2 tab PO BID 08/27/18 08/27/18 SITagliptin [Januvia] 100 mg PO BID 08/27/18 08/27/18 Sertraline [Zoloft] 50 mg PO DAILY 08/27/18 08/27/18 amLODIPine [Norvasc] 10 mg PO DAILY 08/27/18 08/27/18 metFORMIN [glucOPHAGE] 500 mg PO BIDWM 08/27/18 08/27/18 Review of Systems - Review of Systems Systems not reviewed;Unavailable: Altered Mental Status <Giacomo,Madaser - Last Filed: 11/22/18 06:24> Physical Exam - Physical Exam Physical Exam Limitations: Altered Mental Status - Systems Exam Head: Present: Atraumatic, Normocephalic Pupils: Present: PERRL, Other (right eye blindless, pupuil dilated) Conjunctiva: Present: Normal Mouth: Present: Dry Neck: Present: Normal Range of Motion. No: Meningeal Signs, JVD Respiratory/Chest: Present: Clear to Auscultation, Good Air Exchange. No: Respiratory Distress, Accessory Muscle Use, Wheezes, Decreased Breath Sounds Cardiovascular: Present: Regular Rate and Rhythm, Normal S1, S2. No: Murmurs, Tachycardic Abdomen: Present: Normal Bowel Sounds. No: Tenderness, Distention, Peritoneal Signs Upper Extremity: Present: Normal Inspection, Other (left upper extremity with contracture). No: Cyanosis, Edema Lower Extremity: Present: Other (bilateral feet contractures minimal) Neurological: Present: GCS=15, CN II-XII Intact Skin: Present: Warm, Dry, Normal Color. No: Rashes Psychiatric: Present: Alert. No: Oriented x 3, Normal Insight, Normal Concentration <Giacomo,Madaser - Last Filed: 11/22/18 06:24> Medical Decision Making ED Course and Treatment: 11/22/18 06:41 Impression 63 yo male w/ PMH of seizures (on Depakote), CVA w/ left hemiparesis w/ contracture, bedbound, HTN, HLD, blind in right eye, h/o brain tumor s/p resection comes to ED via ambulance. Plan -CT head -CPK -Cardiac enzymes -EKG -CXR -CBC -CMP Prior Visits All prior documentation and lab work reviewed prior to this evaluation Progress Notes pending blood work and imaging <Michela Gooden - Last Filed: 11/22/18 06:24> ED Course and Treatment: 11/22/18 06:46 Patient seen and evaluated with the medical affairs director.Concur with HPI,clinical findings,treatment plan. 11/22/18 07:00 Case endorsed to /pending CT scan/labs/xray/reassess/final disposition - RAD Interpretation Radiology Orders: 11/22/18 06:24 HEAD W/O CONTRAST [CT] Stat 11/22/18 06:38 CHEST PORTABLE [RAD] Stat <Jmaes Brewer - Last Filed: 11/22/18 06:56> Disposition/Present on Arrival - Present on Arrival History of DVT/PE: No History of Uncontrolled Diabetes: Yes Urinary Catheter: No History of Decub. Ulcer: No History Surgical Site Infection Following: None <Michela Gooden - Last Filed: 11/22/18 06:24> - Present on Arrival Any Indicators Present on Arrival: No - Disposition Have Diagnosis and Disposition been Completed?: No Disposition Time: 07:00 <James Brewer - Last Filed: 11/22/18 06:56> - Disposition Diagnosis: Seizure Patient Problems: Current Active Problems Problem Status Onset Seizure Acute Condition: STABLE Forms: [employer] (Brazilian)
[2018-11-22 06:57] LABS: BASO # 0.03 K/mm3 (0.0-2.0); BASO % 0.5 % (0.0-3.0); EOS # 0.3 (0.0-0.7); HEMOGLOBIN 9.5 g/dL (14.0-18.0); LYMPH # 2.1 (1.2-3.4); LYMPH % 34.1 % (22.0-35.0); MEAN CORPUSCULAR HEMOGLOBIN 29.3 pg (25.0-35.0); MEAN CORPUSCULAR HGB CONC 32.2 g/dl (31.0-37.0); MEAN PLATELET VOLUME 9.4 fl (7.0-11.0); MONO # 0.4 (0.1-0.6); MONO % 6.6 % (1.0-6.0); RBC 3.24 10^6/uL (3.5-6.1); WHITE BLOOD COUNT 6.2 10^3/uL (4.5-11.0)
[2018-11-22 07:07] LABS: ALB/GLOB RATIO 1.3 (1.1-1.8); ALBUMIN 3.9 g/dL (3.0-4.8); ALT/SGPT 31 U/L (7-56); AST/SGOT 24 U/L (17-59); BLOOD UREA NITROGEN 29 mg/dL (7-21); CALCIUM 9.3 mg/dL (8.4-10.5); GFR NON-AFRICAN AMERICAN > 60
--- NOTE | 2018-11-22 07:54 | ED PDOC ---
Physical Exam Vital Signs Temp Pulse Resp BP Pulse Ox 11/22/18 06:11 98.2 F 87 18 177/95 H 96 Medical Decision Making ED Course and Treatment: 11/22/18 07:00 Case endorsed to me by Dr. Brewer pending CT scan, CXR, Labs, and reassess/dispo. CT scan of the head. Electronically signed on November 22, 2018 7:30:10 AM EDT by: Monika Osman M.D. IMPRESSION: 1. Age-appropriate cerebellar and cerebral atrophy. 2. Mild chronic microvascular disease. 3. No evidence of acute intracranial pathology. 4. Right frontal craniotomy, unchanged. 5. Underlying chronic right frontal dural thickening. 6. Right frontal chronic encephalomalacia, progressed. 7. Associated ex vacuo dilatation of the right lateral ventricle. 8. Mild left mastoid effusion. 11/22/18 07:51 No seizure here in the ER after sign-out. Case discussed with Dr. Naylor who is aware and agree with the plan. Patient will be admitted for observation. Requests Dr. Anguiano for Neuro consult and Dr. Montiel for cardio consult. - Lab Interpretations Lab Results: Total Bilirubin 0.2 mg/dL (0.2-1.3) 11/22/18 06:25 AST 24 U/L (17-59) 11/22/18 06:25 ALT 31 U/L (7-56) 11/22/18 06:25 Alkaline Phosphatase 89 U/L (38-126) 11/22/18 06:25 Total Protein 6.9 g/dL (5.8-8.3) 11/22/18 06:25 Albumin 3.9 g/dL (3.0-4.8) 11/22/18 06:25 Globulin 3.1 gm/dL 11/22/18 06:25 Albumin/Globulin Ratio 1.3 (1.1-1.8) 11/22/18 06:25 I have reviewed the lab results: Yes - RAD Interpretation Radiology Orders: 11/22/18 06:24 HEAD W/O CONTRAST [CT] Stat 11/22/18 06:38 CHEST PORTABLE [RAD] Stat Neon Installer: Radiologist - Scribe Statement The provider has reviewed the documentation as recorded by the Lukas Rodriguez Provider Scribe Attestation: All medical record entries made by the Scribe were at my direction and personally dictated by me. I have reviewed the chart and agree that the record accurately reflects my personal performance of the history, physical exam, medical decision making, and the department course for this patient. I have also personally directed, reviewed, and agree with the discharge instructions and disposition. Disposition/Present on Arrival - Present on Arrival Any Indicators Present on Arrival: No History of DVT/PE: No History of Uncontrolled Diabetes: Yes Urinary Catheter: No History of Decub. Ulcer: No History Surgical Site Infection Following: None - Disposition Have Diagnosis and Disposition been Completed?: Yes Diagnosis: Seizure Disposition: HOSPITALIZED Disposition Time: 07:45 Patient Problems: Current Active Problems Problem Status Onset Seizure Acute Condition: STABLE
--- NOTE | 2018-11-22 08:07 | RAD ---
Date of service: 11/22/2018 HISTORY: AMS COMPARISON: 10/27/2018 TECHNIQUE: 1 view obtained. FINDINGS: LUNGS: No active pulmonary disease. PLEURA: No significant pleural effusion identified, no pneumothorax apparent. CARDIOVASCULAR: No aortic atherosclerotic calcification present. Normal cardiac size. No pulmonary vascular congestion. OSSEOUS STRUCTURES: No significant abnormalities. VISUALIZED UPPER ABDOMEN: Normal. OTHER FINDINGS: None. IMPRESSION: No active disease.
--- NOTE | 2018-11-22 09:22 | CT ---
Date of service: 11/22/2018 PROCEDURE: CT HEAD WITHOUT CONTRAST. HISTORY: seizure, AMS COMPARISON: 04/13/2017 TECHNIQUE: Axial computed tomography images were obtained through the head/brain without intravenous contrast. Radiation dose: Total exam DLP = 1001.62 mGy-cm. This CT exam was performed using one or more of the following dose reduction techniques: Automated exposure control, adjustment of the mA and/or kV according to patient size, and/or use of iterative reconstruction technique. FINDINGS: HEMORRHAGE: No intracranial hemorrhage. BRAIN: No mass effect or edema. Chronic encephalomalacia is seen in the right frontal lobe. This is adjacent to a craniotomy. There is atrophy with dilatation of the right lateral ventricle. VENTRICLES: Unremarkable. No hydrocephalus. CALVARIUM: Unremarkable. PARANASAL SINUSES: Unremarkable as visualized. No significant inflammatory changes. MASTOID AIR CELLS: There is a small amount of fluid in the left mastoid air cells OTHER FINDINGS: The report concurs with the preliminary [facility] report IMPRESSION: Chronic encephalomalacia is seen in the right frontal lobe. This is adjacent to a craniotomy. There is atrophy with dilatation of the right lateral ventricle. No acute intracranial findings
[2018-11-22] MEDS ORDERED: Dorzolamide 2% Opht Sol 10ml OU SCH (10:00)
[2018-11-22] MEDS ORDERED: [UNRECOGNIZED DRUG - OTHER] SC SCH (10:00)
[2018-11-22] MEDS ORDERED: Non Formulary Medication (Esomeprazole Magnesium [Nexium] 40 MG) PO SCH (10:00)
[2018-11-22] MEDS ORDERED: INSULIN ASPART SC SCH (10:00)
[2018-11-22] MEDS: Divalproex 500 mg DR(BID formulation) PO SCH ×2 (10:57→18:07)
[2018-11-22] MEDS: Pantoprazole 40 mg EC Tab PO SCH (10:57)
[2018-11-22 11:18] VITALS: BMI 24.3
--- NOTE | 2018-11-22 11:37 | CARD ---
APPROVED REPORT Date of service: 11/22/2018 EKG Measurement Heart [id number] <Conclusion> Normal sinus rhythm Normal ECG
--- NOTE | 2018-11-22 11:58 | CP.PCM.CON ---
History of Present Illness - History of Present Illness History of Present Illness: General Surgery: Dr Duval Re: Decubitus ulcer Patient is a 63 year old male with PMHx significant for seizures, CVA w/ contracture and michel-paresis, bed bound who was brought to the ED via ambulance after witnessed him having a seizure. Patient is able to provide only limited history of event but does deny losing consciousness during seizure. He currently endorses left arm pain. Patient denies any headache, dizziness, chest pain, shortness of breath, nausea, vomiting, dysuria, or lower extremity pain. Social Hx: Denies alcohol, tobacco and illicit drug use. Medical Hx: Seizures (on depakote), CVA w/ contracture and hemiparesis, Bedbound, HTN, HLD, Blindness, Brain tumor s/p resection. Allergies: NKDA Surgical Hx: Tonsillectomy, R frontal craniotomy, R eye procedure Hospitilization: Admitted in 10/27/18 for cough and elevated lactate. Family Hx: Denies Medications: As per MAR. Review of Systems - Constitutional Constitutional: As Per HPI - EENT Eyes: As Per HPI Ears: As Per HPI Nose/Mouth/Throat: As Per HPI - Cardiovascular Cardiovascular: As Per HPI - Respiratory Respiratory: As Per HPI - Gastrointestinal Gastrointestinal: As Per HPI - Musculoskeletal Musculoskeletal: As Per HPI, Limited Range of Motion, Muscle Weakness, Stiffness Additional comments: Left arm - Integumentary Integumentary: As Per HPI - Neurological Neurological: As Per HPI - Psychiatric Psychiatric: As Per HPI - Endocrine Endocrine: As Per HPI - Hematologic/Lymphatic Hematologic: As Per HPI Past Patient History - Infectious Disease Hx of Infectious Diseases: None - Tetanus Immunizations Tetanus Immunization: Unknown - Past Medical History & Family History Past Medical History?: Yes - Past Social History Smoking Status: Never Smoked - CARDIAC Hx Cardiac Disorders: Yes Hx Hypercholesterolemia: Yes Hx Hypertension: Yes Hx Peripheral Edema: Yes - PULMONARY Hx Respiratory Disorders: No Hx Tuberculosis: No - NEUROLOGICAL Hx Neurological Disorder: Yes HX Cerebrovascular Accident: Yes Hx Seizures: Yes Hx Transient Ischemic Attacks (TIA): Yes Other/Comment: r frontal craniotomy benign brain tumor 2009, speech impediment - HEENT Hx HEENT Problems: Yes (right eye blind, retinal problem) Hx Blind: Yes (both eyes) Other/Comment: unknown r eye procedure, speech impediment - RENAL Hx Chronic Kidney Disease: No - ENDOCRINE/METABOLIC Hx Endocrine Disorders: Yes Hx Diabetes Mellitus Type 2: Yes - HEMATOLOGICAL/ONCOLOGICAL Hx Blood Disorders: No Hx Hemophilia: Yes - INTEGUMENTARY Hx Dermatological Problems: No Other/Comment: stage 2 pressure ulcer 1cm x 1.2cm wound bed red surounded by pink skin, left shoulder mole, dry flakey skin ble and b/l feet, discolored brown skin rle, thick dry toenails both feet, dry skin both arms - MUSCULOSKELETAL/RHEUMATOLOGICAL Hx Musculoskeletal Disorders: Yes Hx Falls: Yes Hx Unsteady Gait: Yes - GASTROINTESTINAL Hx Gastrointestinal Disorders: Yes Hx Gall Bladder Disease: Yes HX Swallowing Problems: No - GENITOURINARY/GYNECOLOGICAL Hx Genitourinary Disorders: Yes Hx Incontinence: Yes Hx Sexually Transmitted Disorders: No - PSYCHIATRIC Hx Psychophysiologic Disorder: Yes (suicidal ideation) Hx Anxiety: Yes Hx Depression: Yes Hx Physical Abuse: No Hx Sexual Abuse: No - SURGICAL HISTORY Hx Surgeries: Yes Other/Comment: tonsillectomy, r frontal craniotomy benign brain tumor 2009, unknown r eye procedure - ANESTHESIA Hx Anesthesia: Yes Hx Anesthesia Reactions: Yes (vomiting) Hx Malignant Hyperthermia: No Meds Allergies/Adverse Reactions: Allergies Allergy/AdvReac Type Severity Reaction Status Date / Time No Known Allergies Allergy Verified 09/22/18 18:01 - Medications Medications: Current Medications Amlodipine Besylate (Norvasc) 10 mg PO DAILY [facility] Last Admin: 11/22/18 10:56 Dose: 10 mg Aspirin (Aspirin Chewable) 81 mg PO DAILY [facility] Last Admin: 11/22/18 10:57 Dose: 81 mg Atorvastatin Calcium (Lipitor) 10 mg PO DAILY [facility] Last Admin: 11/22/18 10:56 Dose: 10 mg Carvedilol (Coreg) 6.25 mg PO BID [facility] Last Admin: 11/22/18 10:58 Dose: 6.25 mg Divalproex Sodium (Depakote Dr(*Bid*)) 1,000 mg PO BID [facility] Last Admin: 11/22/18 10:57 Dose: 1,000 mg Docusate Sodium (Colace) 100 mg PO [facility] Dorzolamide HCl (Trusopt) 0 ml OU TID [facility] Famotidine (Pepcid) 20 mg PO BID [facility] Last Admin: 11/22/18 10:57 Dose: 20 mg Insulin Human Lispro (Humalog) 16 units SC TID [facility] Latanoprost (Xalatan Opht) 0 ml OU HS [facility] Losartan Potassium (Cozaar) 100 mg PO DAILY [facility] Last Admin: 11/22/18 10:56 Dose: 100 mg Metformin HCl (Glucophage) 500 mg PO BIDWM [facility] Non-Formulary Medication (Insulin Glargine,Hum.Rec.Anlog [Basaglar Kwikpen U- 100]) 30 unit SQ HS [facility] Oxcarbazepine (Trileptal) 300 mg PO BID [facility]; Protocol Last Admin: 11/22/18 10:56 Dose: 300 mg Pantoprazole Sodium (Protonix Ec Tab) 40 mg PO DAILY [facility] Last Admin: 11/22/18 10:57 Dose: 40 mg Risperidone (Risperdal Tab) 2 mg PO BID [facility]; Protocol Last Admin: 11/22/18 10:58 Dose: 2 mg Risperidone (Risperdal Tab) 0.5 mg PO HS [facility]; Protocol Sertraline HCl (Zoloft) 50 mg PO DAILY [facility] Last Admin: 11/22/18 10:57 Dose: 50 mg Sitagliptin Phosphate (Januvia) 100 mg PO DAILY [facility] Last Admin: 11/22/18 10:56 Dose: 100 mg Physical Exam - Constitutional Appears: Non-toxic, No Acute Distress - Head Exam Head Exam: ATRAUMATIC, NORMOCEPHALIC - Eye Exam Eye Exam: absent: Conjunctival injection, Scleral icterus Additional comments: Patient is blind. - Respiratory Exam Respiratory Exam: Decreased Breath Sounds (poor inspiratory effort), NORMAL BREATHING PATTERN. absent: Accessory Muscle Use, Rales, Rhonchi, Wheezes - Cardiovascular Exam Cardiovascular Exam: REGULAR RHYTHM. absent: Tachycardia - GI/Abdominal Exam GI & Abdominal Exam: Normal Bowel Sounds, Soft. absent: Distended, Guarding, Tenderness - Rectal Exam Rectal Exam: Deferred - Extremities Exam Extremities exam: Positive for: tenderness. Negative for: calf tenderness, pedal edema Additional comments: Flexion contracture and pain of left upper extremity - Psychiatric Exam Psychiatric exam: Normal Affect, Normal Mood - Skin Skin Exam: Abrasion, Erythema Additional comments: 1.5cm x 1 cm skin abrasion midline sacrum Results - Vital Signs Recent Vital Signs: Last Vital Signs Temp 98.8 F 11/22/18 08:23 Pulse 84 11/22/18 10:58 Resp 12 11/22/18 08:50 BP 175/89 H 11/22/18 10:58 Pulse Ox 97 11/22/18 08:49 - Labs Result Diagrams: 11/22/18 06:25 11/22/18 06:25 Labs: Laboratory Results - last 24 hr 11/22/18 11/22/18 11/22/18 06:25 06:25 11:09 WBC 6.2 RBC 3.24 L Hgb 9.5 L Hct 29.5 L MCV 91.0 MCH 29.3 MCHC 32.2 RDW 14.0 Plt Count 381 MPV 9.4 Neut % (Auto) 54.8 Lymph % (Auto) 34.1 [place] % (Auto) 6.6 H Eos % (Auto) 4.0 Baso % (Auto) 0.5 Lymph # (Auto) 2.1 [place] # (Auto) 0.4 Eos # (Auto) 0.3 Baso # (Auto) 0.03 Absolute Neuts (auto) 3.40 Sodium 148 Potassium 3.9 Chloride 105 Carbon Dioxide 27 Anion Gap 20 BUN 29 H Creatinine 0.6 L Est GFR ( Amer) > 60 Est GFR (Non-Af Amer) > 60 POC Glucose (mg/dL) 252 H Random Glucose 248 H Calcium 9.3 Total Bilirubin 0.2 AST 24 ALT 31 Alkaline Phosphatase 89 Total Creatine Kinase 37 Total Protein 6.9 Albumin 3.9 Globulin 3.1 Albumin/Globulin Ratio 1.3 Assessment & Plan - Assessment and Plan (Free Text) Assessment: Patient is a 63 year old male admitted for breakthrough seizure with deep tissue injury of the sacram for which surgery is consulted. Plan: -Pt inspected from head to toe - no significant ulcers noted - Cont to turn pt q2hrs - Can off load pressure with Clinitron mattress or air mattress if needed - Apply optiform to sites of pressure - Keep area dry and clean - No surgical intervention - Please reconsult if needed. d/w Dr Mukund Holbrook, PGY4
[2018-11-22] MEDS: Insulin Lispro 1 UNITS/0.01 ML SC SCH ×2 (14:13→18:15)
[2018-11-22] MEDS: Dorzolamide 2% Opht Sol 10ml OU SCH ×2 (14:14→18:18)
--- NOTE | 2018-11-22 15:28 | CON ---
DATE: 11/22/2018 HISTORY: The patient is a 63-year-old male with a known CVA as well as seizure disorder, who had a breakthrough seizure today. He was found to be hypertensive. PAST MEDICAL HISTORY: Includes hypertension, diabetes mellitus, as well as hypercholesterolemia. Currently, the patient is lethargic in bed. REVIEW OF SYSTEMS: Not possible. PHYSICAL EXAMINATION: VITAL SIGNS: Blood pressure 175/83, heart rate is in the 80s. NECK: Negative JVD. LUNGS: Decreased breath sounds. HEART: S1, S2. EXTREMITIES: Without edema. There appears to be left upper extremity contractures. LABORATORY DATA: Includes an EKG that shows a normal sinus rhythm with a short WI interval without ST-T changes. Glucose 248, BUN and creatinine are unremarkable. Hemoglobin is 9.5. IMPRESSION: 1. Seizures. 2. Hypertension. 3. Diabetes mellitus. 4. Hypercholesterolemia. 5. Anemia. 6. History of cerebrovascular accident. PLAN: Given these findings, we will continue to monitor the patient and treat his hypertensive gently. Clonidine has been ordered. We will obtain an echocardiogram to evaluate LV function. Benjamín Montiel MD
--- NOTE | 2018-11-22 20:16 | HP ---
DATE OF EXAM: 11/22/2018 HISTORY OF PRESENT ILLNESS: He came into the emergency room early this morning, he apparently had a breakthrough seizure by family, they sent him to the emergency room. He is 63-year-old white male who I know very well from house calls who had a past medical history of seizures on Depakote, CVA with left hemiparesis with contracture, bed-bound, hypertension, high cholesterol, blind in the right eye, history of brain tumor status post resection, comes in responsive, alert and oriented x2 with seizure from family has hypertension, left-sided weakness, right eye blind retinal problem. He had some procedures of the right eye, speech impediment, type 2 diabetes, stage two pressure ulcer 1 cm x 1.2. Will call in Surgery to evaluate the ulcer and thick dry toenails, he has had gallstone disease, he had blood in the urine in the past, also with incontinence. Suicide ideation years ago, anxiety and depression years ago, tonsillectomy, right frontal craniotomy, benign brain tumor 2009, right eye procedure. He has been nausea and vomiting in the past. FAMILY HISTORY: Unknown family history. SOCIAL HISTORY: No smoker. No drinking. No drugs. ALLERGIES: NO KNOWN DRUG ALLERGIES. MEDICATIONS: He is on Depakote, Colace, Trusopt, Coreg, Nexium, Pepcid, insulin, Cozaar, multivitamins, Trileptal, Risperdal, Januvia, Zoloft, Glucophage and Norvasc. Will increase his Depakote from 500 to 1,000 twice a day. REVIEW OF SYSTEMS: He has a little bit altered mental status, but at this time. He could answer questions. No chest pain or shortness of breath. No abdominal pain. He is hungry. He is not sure what happened. PHYSICAL EXAMINATION VITAL SIGNS: He has a 98.8 temperature, 79 pulse, 158/89 blood pressure, 16 respiratory rate and 97% O2 sat on room air. HEENT: His head is atraumatic, but not normocephalic from the surgeries. He has got right eye blindness. Pupils dilated. Throat is moist. Neck: Supple. No JVD. No meningeal signs. HEART: Regular rate. Normal S1 and S2. LUNGS: Decreased breath sounds, but clear to auscultation. No wheezes or rhonchi or rales. ABDOMEN: Soft, nontender, positive bowel sounds. No guarding, no rebound or CVA tenderness. EXTREMITIES: Left upper extremity is contracted. Left side is weak. Right side is okay. NEUROLOGIC: GCS is 15. His cranial nerves II-XII grossly intact except for the left eye. SKIN: Warm and dry. He has got a sacral ulcer. LABORATORY DATA: He had multiple tests done. He has a 148 sodium, potassium 3.9, BUN 29, creatinine 0.6, GFR is greater than 60, sugar is 248, calcium is 9.3, total bili is 0.2, AST is 24, ALT is 31, alk phos 89, total creatine kinase is 37, total protein 6.9 and albumin is 3.9. White count 6.2, hemoglobin 9.5, hematocrit 29.5 and platelets of 381. He will have consults with Neurology and Cardiology. I will put him on elevated doses of Keppra plus his medications. Hopefully we will watch overnight in observation and discharge him tomorrow. I will also consult Surgery for his sacral ulcer. Check his labs and see for breakthrough seizures. Carmelo Naylor DO [email or web address]
--- NOTE | 2018-11-22 21:26 | CON ---
DATE: 11/22/2018 HISTORY OF PRESENT ILLNESS: This is a 63-year-old male with past medical history of seizures, CVA with hemiparesis and contracture, brought to the hospital via ambulance. witnessed him having a seizure. No tongue bite. He denies any losing of consciousness. I was called to evaluate the patient. 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 ALLERGIES: NO KNOWN DRUG ALLERGY. SOCIAL HISTORY: Does not smoke. Does not drink. REVIEW OF SYSTEMS: No headache. No dizziness. HOME MEDICATIONS: Norvasc, Lipitor, Depakote and famotidine. PHYSICAL EXAMINATION: VITAL SIGNS: Blood pressure 175/90. HEENT: Normocephalic and atraumatic. NEUROLOGIC: The patient is awake and orientated to self. Not aphasic. Cranial nerves II through XII were tested. Pupils, blind both eyes. No facial asymmetry. Tongue midline. Motor examination, spontaneous movement was noted in the extremities. Sensory appears intact. Cerebellar gait deferred. LABORATORY DATA: WBC 6.2, hemoglobin 9.5, hematocrit 29.5 and platelets 381. Sodium 148, potassium 3.9, chloride 105, CO2 of 27, glucose 248, BUN 29 and creatinine 0.6. IMPRESSION AND PLAN: A 63-year-old, bed bound. He is admitted with a breakthrough seizure. He had a history of cerebrovascular accident with residual hemiparesis and bed bound. Continue present management. We will follow up. Eagle Anguiano MD
[2018-11-22] MEDS: Latanoprost 2.5 ml Opht Soln OU SCH (21:56)
[2018-11-22] MEDS ORDERED: [UNRECOGNIZED DRUG - OTHER] SQ SCH (22:00)
[2018-11-22] MEDS ORDERED: INSULIN GLARGINE HUM REC ANLOG 30 UNIT SQ SCH (22:00)
[2018-11-22] MEDS: [UNRECOGNIZED DRUG - OTHER] SQ SCH (22:53)
[2018-11-22] MEDS: INSULIN GLARGINE HUM REC ANLOG 30 UNIT SQ SCH (22:53)
[2018-11-23 07:51] LABS: HEMOGLOBIN 8.6 g/dL (14.0-18.0); MEAN CELL VOLUME 88.8 fl (80.0-105.0); MEAN CORPUSCULAR HEMOGLOBIN 29.3 pg (25.0-35.0); MEAN PLATELET VOLUME 8.7 fl (7.0-11.0); RBC 2.94 10^6/uL (3.5-6.1); RED CELL DISTRIBUTION WIDTH 14.2 % (11.5-14.5); WHITE BLOOD COUNT 5.9 10^3/uL (4.5-11.0)
[2018-11-23 08:20] LABS: ALB/GLOB RATIO 1.2 (1.1-1.8); ALBUMIN 3.5 g/dL (3.0-4.8); ALT/SGPT 27 U/L (7-56); AST/SGOT 21 U/L (17-59); BLOOD UREA NITROGEN 21 mg/dL (7-21); CALCIUM 8.7 mg/dL (8.4-10.5); GFR NON-AFRICAN AMERICAN > 60
[2018-11-23] MEDS: Divalproex 500 mg DR(BID formulation) PO SCH ×2 (09:01→17:13)
[2018-11-23] MEDS: Pantoprazole 40 mg EC Tab PO SCH (09:03)
[2018-11-23] MEDS: Insulin Lispro 1 UNITS/0.01 ML SC SCH ×3 (09:04→17:17)
[2018-11-23] MEDS: Dorzolamide 2% Opht Sol 10ml OU SCH ×3 (09:04→17:16)
[2018-11-23] MEDS ORDERED: Pantoprazole 40 mg EC Tab PO SCH (10:00)
--- NOTE | 2018-11-23 12:36 | CARD ---
APPROVED REPORT Date of service: 11/22/2018 EXAM: Two-dimensional and M-mode echocardiogram with Doppler and color Doppler. INDICATION LVH 2D DIMENSIONS Left Atrium (2D)3.2 (1.6-4.0cm)IVSd1.2 (0.7-1.1cm) LVDd4.2 (3.9-5.9cm)PWd1.2 (0.7-1.1cm) LVDs3.0 (2.5-4.0cm)FS (%) 28.1 % LVEF (%)54.7 (>50%) M-Mode DIMENSIONS Aortic Root3.20 (2.2-3.7cm)Aortic Cusp Exc.1.90 (1.5-2.0cm) Aortic Valve AoV Peak Hemmyhrg329.0cm/Lenny Peak GR.7mmHg Mitral Valve MV E Hdiifwxi89.8cm/sMV A Rxntxfdr03.8cm/sE/A ratio0.6 TDI E/Lateral E'0.0E/Medial E'0.0 Pulmonary Valve PV Peak Kebjdmhj79.8cm/sPV Peak Grad.1mmHg Tricuspid Valve TR Peak [id number]/sRAP [id number] Peak Gr.11mmHg [id number] LEFT VENTRICLE The left ventricle is normal size. There is borderline concentric left ventricular hypertrophy. The left ventricular function is normal. The left ventricular ejection fraction is within the normal range. There is normal LV segmental wall motion. Transmitral Doppler flow pattern is Grade I-abnormal relaxation pattern. RIGHT VENTRICLE The right ventricle is normal size. There is normal right ventricular wall thickness. The right ventricular systolic function is normal. ATRIA The left atrium size is normal. The right atrium size is normal. AORTIC VALVE The aortic valve is mildly sclerotic and probably bicuspid. No aortic regurgitation is present. There is no aortic valvular stenosis. MITRAL VALVE The mitral valve is normal in structure. There is no mitral valve regurgitation noted. There is no mitral valve stenosis. TRICUSPID VALVE The tricuspid valve is normal in structure. There is trace tricuspid regurgitation. PULMONIC VALVE The pulmonary valve is normal in structure. There is no pulmonic valvular regurgitation. GREAT VESSELS The aortic root is normal in size. The IVC is normal in size and collapses >50% with inspiration. PERICARDIAL EFFUSION There is no pericardial effusion. <Conclusion> There is borderline concentric left ventricular hypertrophy. The left ventricular function is normal. The left ventricular ejection fraction is within the normal range. There is normal LV segmental wall motion. Transmitral Doppler flow pattern is Grade I-abnormal relaxation pattern. The aortic valve is mildly sclerotic and probably bicuspid.
--- NOTE | 2018-11-23 14:29 | PN ---
DATE: 11/23/2018 SUBJECTIVE: The patient is resting comfortably. PHYSICAL EXAMINATION: VITAL SIGNS: Blood pressure is improved 146/88, heart rates in the 80s. NECK: Negative JVD. LUNGS: Without rales. HEART: S1 and S2. EXTREMITIES: Without edema. LABORATORY DATA: Potassium is 3.2 with a glucose of 129. IMPRESSION: 1. Breakthrough seizures, which is better. 2. Accelerated hypertension, which is now controlled on clonidine. 3. Diabetes mellitus. 4. Hypokalemia. 5. Hypercholesterolemia. 6. History of cerebrovascular accident. PLAN: Given these findings, blood pressure is better controlled. Potassium has been replaced. We will discontinue telemetry. Benjamín Montiel MD
--- NOTE | 2018-11-23 20:22 | DS ---
HISTORY OF PRESENT ILLNESS: He came in with a breakthrough seizure. He also had a little bit of anemia, sacral ulcers. He is going to be going home on the same medications, but the Depakote will be at 1000 mg twice a day. We are going to add iron, Feosol to his medications. I will see him on a house call around next week. He did well. He is being discharged to home. He had breakthrough seizures. PHYSICAL EXAMINATION: VITAL SIGNS: He has a 98.6 temperature, 84 pulse, 144/84 blood pressure, 19 respiratory rate and 95% O2 sat on room air. HEENT: Head is atraumatic and normocephalic. HEART: Regular rate. LUNGS: Decreased breath sounds. ABDOMEN: Soft. EXTREMITIES: No edema. LABORATORY DATA: He has a 139 sodium, potassium is 3.2, I am going to give him potassium in the light of his . BUN 21, creatinine 0.6, GFR is greater than 60, sugar is 124, calcium is 8.7, total bili is 0.1, AST is 21, ALT is 27, alk phos 82 and total protein 6.3. White count is 5.9, hemoglobin is 8.6, I will start him on iron, he has also had a lot of IV fluids, hematocrit is 26.1 and platelets are 259. PLAN: I will watch him at home. He was seen by Cardiology, Neurology and Surgery. Carmelo Naylor DO MTDD
[2018-11-23] MEDS: Latanoprost 2.5 ml Opht Soln OU SCH (23:26)
[2018-11-23] MEDS: INSULIN GLARGINE HUM REC ANLOG 30 UNIT SQ SCH (23:26)
[2018-11-23] MEDS: [UNRECOGNIZED DRUG - OTHER] SQ SCH (23:26)
[2018-11-24] MEDS: Mupirocin 2% Ointment 15 GM TUBE NS SCH ×2 (00:03→09:47)
[2018-11-24] MEDS: Latanoprost 2.5 ml Opht Soln OU SCH (00:10)
[2018-11-24 02:26] VITALS: RESP 20
[2018-11-24 05:29] VITALS: BP 144/88; PULSE 84; TEMP 98.7; O2SAT 97
[2018-11-24] MEDS: Pantoprazole 40 mg EC Tab PO SCH (09:44)
[2018-11-24] MEDS: Insulin Lispro 1 UNITS/0.01 ML SC SCH (09:46)
[2018-11-24] MEDS: Dorzolamide 2% Opht Sol 10ml OU SCH (09:47)
[2018-11-24] MEDS: Divalproex 500 mg DR(BID formulation) PO SCH (09:50)
--- NOTE | 2018-11-24 19:18 | DS ---
HISTORY OF PRESENT ILLNESS: I thought I discharged him yesterday, but apparently the transportation did not pick him up to take him home. He is going to go home on same medications that he was from home. He had a breakthrough seizures, so we increased his Depakote to 1000 twice a day. He is eating well. He is alert. I will see him on a house call. PHYSICAL EXAMINATION: VITAL SIGNS: He has a 98.7 temp, 84 pulse, 144/88 blood pressure, 20 respiratory rate and 97% O2 sat on room air. HEENT: Head is atraumatic and normocephalic. HEART: Regular rate. LUNGS: Decreased breath sounds. ABDOMEN: Soft. EXTREMITIES: He has got weakness from an old issue that he has had in the past. No seizures since he has been in the hospital. He was seen by Cardiology and Neurology. He had breakthrough seizure; accelerated hypertension, controlled on Clonidine; diabetes; hypokalemia; history of cerebrovascular accident and high cholesterol. I will see him on a house call. He should be discharge home today if they pick him up. Carmelo Naylor DO
== END 2018-11-24 12:16 | disposition home or self-care (01) ==
LOC: ED 06:08 → ERH 07:46 → 2RNO 09:39
PROVIDERS: ADMIT Family Medicine; ATTEND Family Medicine
DX: G40.909 Epilepsy, unspecified, not intractable, without status epilepticus (principal); L89.152 Pressure ulcer of sacral region, stage 2; I10 Essential (primary) hypertension; I69.354 Hemiplegia and hemiparesis following cerebral infarction affecting left non-dominant side; E87.6 Hypokalemia; D64.9 Anemia, unspecified; E11.9 Type 2 diabetes mellitus without complications; E78.00 Pure hypercholesterolemia, unspecified; E78.5 Hyperlipidemia, unspecified; H54.3 Unqualified visual loss, both eyes; Z74.01 Bed confinement status; Z79.4 Long term (current) use of insulin; Z86.011 Personal history of benign neoplasm of the brain